=== PATIENT | female | born 1945 | race Caucasian/White ===

== ENCOUNTER → 2018-06-19 10:45 | Outpatient (CLI) | payer MEDICARE, OTHER, SELFPAY ==
[2017-02-10 00:41] VITALS: BMI 45.0
--- NOTE | 2018-06-19 09:04 | COLBX_PTH ---
PATIENT: CHAYITO LIM LOC: [facility] U#:[id number] AGE/SX: 79/F ROOM: RE06/19/[address]: Dr. Prashant Gonzalez MD : [id number] BED: DIS: SPEC #: [id number] RECD: 06/19/18 10:42 STATUS: GUILLERMINA MORALES #: [id number] BHUMIKA: 06/19/18 09:[address]: Prashant Gonzalez DEPT: SURGICAL PATHOLOGY RECD BY: Bhanu Rodriguez ENTERED: 06/19/18 11:59 SP TYPE: COLON BX OT DR: Dr. Angelo Eldridge MD [facility] Tissues: A - Right colon B - Left colon Procedures: Surgery Specimen Level IV HEADER OPERATION: Colonoscopy with biopsies PRE-OP DIAGNOSIS: Chronic diarrhea TISSUE SUBMITTED: A - Right colon biopsies, rule out ulcerative colitis, B - Left colon biopsies, rule out ulcerative colitis / microscopic colitis MICROSCOPIC DIAGNOSIS A. Right colon, biopsy: Diffuse chronic active colitis with moderate activity. See microscopic description and comment. B. Left colon, biopsy: Fragments of colonic mucosa with minimal glandular architectural distortion. Negative for active colitis. AM:gracie 06/20/18 COMMENT The findings are consistent with inflammatory bowel disease. Correlation with clinical, endoscopic findings and appropriate follow up are necessary. MICROSCOPIC DESCRIPTION Slides are reviewed. A. The specimen shows fragments of colonic mucosa with moderate acute and chronic inflammatory cell infiltrates in the lamina propria, cryptitis, crypt abscesses, lymphoid aggregates, minimal glandular distortion and focal areas suggestive of granuloma formation. No evidence of dysplasia. GROSS DESCRIPTION A - Received in fixative is one container labeled with the patient's name and designated right colon biopsy. The specimen consists of multiple irregular fragments of light marrufo soft tissue that in aggregate measure 1 x 0.7 x 0.1 cm. The specimen is totally submitted in one cassette. B - Received in fixative is one container labeled with the patient's name and designated left colon biopsy. The specimen consists of multiple irregular fragments of light marrufo soft tissue that in aggregate measure 2 x 0.5 x 0.1 cm. The specimen is totally submitted in one cassette. / SUE:gracie 06/19/18 TC:2 CPT: 61438 x2
== END ==
PROVIDERS: Family Provider Internal Medicine; PCP Internal Medicine; Referring Provider Internal Medicine Gastroenterology; Visit Provider Internal Medicine Gastroenterology
DX: R19.7 Diarrhea, unspecified (principal)
CPT/HCPCS: 87493; 88305

== ENCOUNTER → 2019-03-17 14:36 | Outpatient (CLI) | payer MEDICARE, OTHER, SELFPAY ==
[2017-02-10 00:41] VITALS: BMI 45.0
[2019-03-17 18:07] LABS: Hematocrit 37.5 % (37-47); Hemoglobin 11.5 g/dL (12.0-15.0); Mean Corp Hgb Conc 30.7 g/dL (32-36); Mean Corpuscular Hgb 29.3 pg (27.0-32.0); Mean Corpuscular Volume 95.4 fL (81-99); Mean Platelet Vol. 11.3 fl (6.2-12.0); Platelet Count 204 K/mm3 (150-450); RBC Distribution Width CV 14.9 % (11.6-14.6); RBC Distribution Width SD 51.1 fl (35.1-43.9); Red Blood Count 3.93 M/mm3 (4.2-5.4); White Blood Count 8.4 K/mm3 (4.4-11.0)
[2019-03-17 18:19] LABS: Erythrocyte Sedimentation Rate 59 mm/hr (0-30)
[2019-03-17 18:20] LABS: CRP 8.83 mg/L (0.0-3.0); Iron 66 ug/dL (50-170)
== END ==
PROVIDERS: Family Provider Internal Medicine; PCP Internal Medicine; Referring Provider Internal Medicine Gastroenterology; Visit Provider Internal Medicine Gastroenterology
DX: K51.90 Ulcerative colitis, unspecified, without complications (principal); D64.9 Anemia, unspecified
CPT/HCPCS: 36415; 83540; 85027; 85652; 86140

== ENCOUNTER 2019-10-22 12:00 | Outpatient (RCR) | payer MEDICARE, OTHER, SELFPAY ==
[2019-10-15 08:12] VITALS: BP 140/52; PULSE 60; RESP 16; TEMP 36.2; BMI 44.6
--- NOTE | 2019-10-15 16:22 | PCM.WC.HP ---
(1) Decubitus ulcer of left buttock Status: Chronic Current Visit: Yes Qualifiers: Pressure injury stage: stage 2 Qualified Code(s): L89.322 - Pressure ulcer of left buttock, stage 2 Code(s): L89.329 - Pressure ulcer of left buttock, unspecified stage (2) Decubitus ulcer of right buttock Status: Chronic Current Visit: Yes Qualifiers: Pressure injury stage: stage 2 Qualified Code(s): L89.312 - Pressure ulcer of right buttock, stage 2 Code(s): L89.319 - Pressure ulcer of right buttock, unspecified stage (3) Ulcer of left lower extremity with fat layer exposed Status: Acute Current Visit: Yes Code(s): L97.922 - Non-pressure chronic ulcer of unspecified part of left lower leg with fat layer exposed (4) Ulcer of right lower extremity with fat layer exposed Status: Acute Current Visit: Yes Code(s): L97.912 - Non-pressure chronic ulcer of unspecified part of right lower leg with fat layer exposed (5) Chronic Venous Stasis Status: Chronic Current Visit: Yes (6) Diabetes mellitus, type II Status: Chronic Current Visit: Yes Code(s): E11.9 - Type 2 diabetes mellitus without complications (7) Morbid obesity Status: Chronic Current Visit: Yes Code(s): E66.01 - Morbid (severe) obesity due to excess calories (8) Type 2 diabetes mellitus with other circulatory complications Status: Chronic Current Visit: Yes Code(s): E11.59 - Type 2 diabetes mellitus with other circulatory complications (9) Venous insufficiency (chronic) (peripheral) Status: Chronic Current Visit: Yes Code(s): I87.2 - Venous insufficiency (chronic) (peripheral) History of Present Illness Date of Service: 10/15/19 Chief Complaint: Bilateral lower extremity and Decubitus ( Buttock ) Ulcers. History of Wound: Ms. Ortiz is a 74 yo who presents to the Wound center due to nonhealing bilateral decubitus ulcers and new onset bilateral lower extremity ulcers. Bilateral decubitus ulcers have been present since . She reports increased tenderness in her buttock areas. She has been applying Aquaphor and Vaseline to the area. She also states that she was recently started on antibiotics by her primary care physician. She has a harper's catheter which is changed every 3 weeks. Bilateral lower extremity ulcerations noted 2 weeks ago. History of chronic venous insufficiency/stasis dermatitis. No trauma. She feels well. Denies chills, fever, nausea or vomiting. 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) Edema of both legs (Chronic) Diabetes mellitus, type II (Chronic) Hypertension (Chronic) Hyperlipidemia (Chronic) Morbid obesity (Chronic) Chronic Venous Stasis (Chronic) PVD (peripheral vascular disease) (Chronic) Overflow stress urinary incontinence in female (Chronic) COPD (chronic obstructive pulmonary disease) (Chronic) Chronic respiratory failure (Chronic) Cellulitis (Chronic) Chronic acquired lymphedema (Chronic) Surgical History: cataract, cholecystectomy, total knee arthroplasty, - - L carpal tunnel surgery, IVC Filter Allergies/Adverse Reactions: Allergies omeprazole magnesium [From Prilosec] Allergy (Verified 10/15/19 08:38) Rash rofecoxib [From Vioxx] Allergy (Verified 10/15/19 08:38) Swelling sulfamethoxazole [From Bactrim] Allergy (Verified 10/15/19 08:38) Other BURNING AROUND MOUTH trimethoprim [From Bactrim] Allergy (Verified 10/15/19 08:38) Other BURNING AROUND MOUTH aspirin Adverse Reaction (Verified 10/15/19 08:38) Other omeprazole [From Prilosec] Adverse Reaction (Verified 10/15/19 08:38) Nausea omonopril Allergy (Uncoded 11/04/14 19:08) Other COUGH SEASONAL ALLERGIES Allergy (Uncoded 10/15/19 08:39) PT UNSURE OF REACTION Home Medications: Ambulatory Orders Medication Instructions Recorded Metoprolol Tartrate [Lopressor 25 mg PO DAILY 11/04/14 (beta frank)] Fluoxetine [Prozac] 20 mg PO BID 05/12/16 Furosemide [Lasix] 80 mg PO BID 05/12/16 Losartan Potassium [Cozaar] 25 mg PO DAILY 05/12/16 Cyanocobalamin (Vitamin B-12) 1,000 mcg PO DAILY 12/25/16 [B-12] Ferrous Sulfate, Dried [Iron] 30 mg PO QWEEK 10/15/19 Loperamide [Imodium] 2 mg PO Q12H PRN PRN 10/15/19 Magnesium Oxide 750 mg PO DAILY 10/15/19 Mesalamine [Lialda] 2.5 tab PO BID 10/15/19 Multivitamin [Multiple Vitamins] 1 ea PO DAILY 10/15/19 Ondansetron [Ondansetron Odt] 4 mg PO 4X/DAY PRN 10/15/19 Warfarin [Coumadin ([facility]KC)] 1 mg PO DAILY 10/15/19 - Family History Maternal No pertinent history Paternal No pertinent history Smoking Status: Former smoker Review of Systems Constitutional: Denies: Anorexia, Chills, Fever Eyes: Denies: Blurred vision, Pain, Redness HEENT: Denies: Difficulty Swallowing Cardiovascular: Denies: Chest Pain, Claudication, Chest Pressure Respiratory: Denies: Cough, Hemoptysis Gastrointestinal: Denies: Abdominal Pain, Hematemesis Skin: Denies: Jaundice - Physical Exam Vital Signs Temp Pulse Resp BP 97.2 F L 60 16 140/52 H 10/15/19 08:12 10/15/19 08:12 10/15/19 08:12 10/15/19 08:12 General: Alert, Oriented x3, Cooperative, No apparent distress HEENT: Atraumatic, Normocephalic Oral: Moist Mucosa Neck: Supple Lungs: Normal air movement Cardiovascular: Regular rate, Normal S1, Normal S2 Abdomen: Soft, Non Tender, Obese Extremities: No cyanosis Skin: Ulcer/ Wound Wound Measurements and Assessment WC - Nurse 1 - General Ulcer Measurement Start: 10/15/19 08:10 Freq: Status: Active Protocol: Activity Type Activity Date Activity User E-Sign Co-Sign Detail Recorded Client Recorded Date Recorded By Document 10/15/19 08:12 [facility] [id number] 10/15/19 08:35 [facility] 10/15/19 08:12 Wound Center Nurse 1 [Ulcer Assessment] #7- L BUTTOCK -Combined with other wound No -Current Size (cm) - Length 0.8 -Current Size (cm) - Width 0.4 -Current Size (cm) - Depth 0.1 -Total Square Cm 0.32 -Date of Last Picture (Recall this 10/15/19 field) -Photo Taken Yes -Epithelialization None Present -Tunneling No -Undermining/Tunneling No -Circular Undermining No -Exudate Amt None Present -Wound Margin Flat & Intact -Granulation Amt Large (67-100%) -Granulation Quality Morris -Slough/Fibrin Yes -Necrosis Amt Small (1-33%) -Necrotic Tissue Type Adherent Slough -Texture (Loli-wound Skin Appearance) Assessed, Excoriation, Scarring -Moisture (Loli-wound Skin Appearance Assessed,Dry/ ) Scaly -Color (Loli-wound Skin Appearance) Assessed, Erythema -Temperature (Loli-wound Skin No Abnormality Appearance) (Pt Warm) -Tenderness on Palpation (Loli-wound No Skin Appearance) -Ulcer Cleansing Rinsed/ Irrigated with Saline -Foul Odor after Cleansing No -Anesthetic Used 4% Lidocaine Solution #6- R BUTTOCK -Combined with other wound No -Current Size (cm) - Length 1.1 -Current Size (cm) - Width 0.4 -Current Size (cm) - Depth 0.1 -Total Square Cm 0.44 -Date of Last Picture (Recall this 10/15/19 field) -Photo Taken Yes -Epithelialization None Present -Tunneling No -Undermining/Tunneling No -Circular Undermining No -Exudate Amt None Present -Wound Margin Flat & Intact -Granulation Amt Large (67-100%) -Granulation Quality Morris -Slough/Fibrin Yes -Necrosis Amt Small (1-33%) -Necrotic Tissue Type Adherent Slough -Texture (Loli-wound Skin Appearance) Assessed, Excoriation, Scarring -Moisture (Loli-wound Skin Appearance Assessed,Dry/ ) Scaly -Color (Loli-wound Skin Appearance) Assessed, Erythema -Temperature (Loli-wound Skin No Abnormality Appearance) (Pt Warm) -Tenderness on Palpation (Loli-wound No Skin Appearance) -Ulcer Cleansing Rinsed/ Irrigated with Saline -Foul Odor after Cleansing No -Anesthetic Used 4% Lidocaine Solution #5- R LAT MUSTAFA -Combined with other wound No -Current Size (cm) - Length 0.7 -Current Size (cm) - Width 1 -Current Size (cm) - Depth 0.1 -Total Square Cm 0.7 -Date of Last Picture (Recall this 10/15/19 field) -Photo Taken Yes -Epithelialization None Present -Tunneling No -Undermining/Tunneling No -Circular Undermining No -Exudate Amt Small -Exudate Type Serous -Wound Margin Flat & Intact -Granulation Amt Large (67-100%) -Granulation Quality Morris -Slough/Fibrin Yes -Necrosis Amt Small (1-33%) -Necrotic Tissue Type Adherent Slough -Texture (Loli-wound Skin Appearance) Assessed, Scarring -Moisture (Loli-wound Skin Appearance Assessed,Dry/ ) Scaly -Color (Loli-wound Skin Appearance) Assessed, Erythema -Temperature (Loli-wound Skin No Abnormality Appearance) (Pt Warm) -Tenderness on Palpation (Loli-wound No Skin Appearance) -Ulcer Cleansing Rinsed/ Irrigated with Saline -Foul Odor after Cleansing No -Anesthetic Used 4% Lidocaine Solution #4 L MUSTAFA CLUSTER -Combined with other wound No -Current Size (cm) - Length 3.6 -Current Size (cm) - Width 0.7 -Current Size (cm) - Depth 0.1 -Total Square Cm 2.52 -Date of Last Picture (Recall this 10/15/19 field) -Photo Taken Yes -Epithelialization None Present -Tunneling No -Undermining/Tunneling No -Circular Undermining No -Exudate Amt Small -Exudate Type Serous -Wound Margin Flat & Intact -Granulation Amt Large (67-100%) -Granulation Quality Morris -Slough/Fibrin Yes -Necrosis Amt Small (1-33%) -Necrotic Tissue Type Adherent Slough -Texture (Loli-wound Skin Appearance) Assessed, Scarring -Moisture (Loli-wound Skin Appearance Assessed,Dry/ ) Scaly -Color (Loli-wound Skin Appearance) Assessed, Erythema -Temperature (Loli-wound Skin No Abnormality Appearance) (Pt Warm) -Tenderness on Palpation (Loli-wound No Skin Appearance) -Ulcer Cleansing Rinsed/ Irrigated with Saline -Foul Odor after Cleansing No -Anesthetic Used 4% Lidocaine Solution [Edema Assessment] -Lower Limb Edema Present Yes -Right Calf (cm) 41.7 -Right Ankle (cm) 23.5 -Left Calf (cm) 41.6 -Left Ankle (cm) 22.5 WC - Nurse 2 - General Ulcer CM Notes Start: 10/15/19 08:10 Freq: Status: Active Protocol: Activity Type Activity Date Activity User E-Sign Co-Sign Detail Recorded Client Recorded Date Recorded By Document 10/15/19 08:59 MW [id number] 10/15/19 09:12 MW 10/15/19 08:59 Wound Center Nurse 2 [Procedure/Treatment] #7- L BUTTOCK -Time 08:59 -Correct Patient Yes -Correct Side, Site, Position Yes -Correct Procedure Yes -Procedure Performed Yes -Type of Procedure Debridement -Clinical Debridement Subcutaneous -Post Debridement Size (cm) - Length 1.2 -Post Debridement Size (cm) - Width 0.6 -Post Debridement Size (cm) - Depth 0.1 -Total Square Cm 0.72 -Wound/Ulcer Outcome Not Healed -Ulcer Cleansing Rinsed/ Irrigated with Saline -Foul Odor after Cleansing No -Bioengineered Tissue No -Bleeding Controlled with Pressure -Offloading No -Treatment Response Procedure Tolerated Well #6- R BUTTOCK -Time 09:00 -Correct Patient Yes -Correct Side, Site, Position Yes -Correct Procedure Yes -Procedure Performed Yes -Type of Procedure Debridement -Clinical Debridement Subcutaneous -Post Debridement Size (cm) - Length 1.5 -Post Debridement Size (cm) - Width 0.7 -Post Debridement Size (cm) - Depth 0.1 -Total Square Cm 1.05 -Wound/Ulcer Outcome Not Healed -Ulcer Cleansing Rinsed/ Irrigated with Saline -Foul Odor after Cleansing No -Bioengineered Tissue No -Bleeding Controlled with Pressure -Offloading No -Treatment Response Procedure Tolerated Well #5- R LAT MUSTAFA -Time 09:01 -Correct Patient Yes -Correct Side, Site, Position Yes -Correct Procedure Yes -Procedure Performed Yes -Type of Procedure Debridement -Clinical Debridement Subcutaneous -Post Debridement Size (cm) - Length 2.5 -Post Debridement Size (cm) - Width 1.0 -Post Debridement Size (cm) - Depth 0.1 -Total Square Cm 2.50 -Wound/Ulcer Outcome Not Healed -Ulcer Cleansing Rinsed/ Irrigated with Saline -Foul Odor after Cleansing No -Bioengineered Tissue No -Bleeding Controlled with Pressure -Offloading No -Treatment Response Procedure Tolerated Well #4 L MUSTAFA CLUSTER -Time 09:01 -Correct Patient Yes -Correct Side, Site, Position Yes -Correct Procedure Yes -Procedure Performed Yes -Type of Procedure Debridement -Clinical Debridement Subcutaneous -Post Debridement Size (cm) - Length 1.3 -Post Debridement Size (cm) - Width 1.3 -Post Debridement Size (cm) - Depth 0.1 -Total Square Cm 1.69 -Wound/Ulcer Outcome Not Healed -Ulcer Cleansing Rinsed/ Irrigated with Saline -Foul Odor after Cleansing No -Bioengineered Tissue No -Bleeding Controlled with Pressure -Offloading No -Treatment Response Procedure Tolerated Well [See Physician Procedure note for Specifics] Pain Scale: 0-10 Numeric [Pain] -Is Patient Pain Free? Yes Musculoskeletal: No Muscle Wasting Neurological: Cranial nerves II-XII grossly intact Psych/Mental Status: Normal Affect Debridement Note Post-Debridement Measurements/Treatment WC - Nurse 2 - General Ulcer CM Notes Start: 10/15/19 08:10 Freq: Status: Active Protocol: Activity Type Activity Date Activity User E-Sign Co-Sign Detail Recorded Client Recorded Date Recorded By Document 10/15/19 08:59 MW [id number] 10/15/19 09:12 MW 10/15/19 08:59 Wound Center Nurse 2 #7- L BUTTOCK -Time 08:59 -Correct Patient Yes -Correct Side, Site, Position Yes -Correct Procedure Yes -Procedure Performed Yes -Type of Procedure Debridement -Clinical Debridement Subcutaneous -Post Debridement Size (cm) - Length 1.2 -Post Debridement Size (cm) - Width 0.6 -Post Debridement Size (cm) - Depth 0.1 -Total Square Cm 0.72 -Wound/Ulcer Outcome Not Healed -Ulcer Cleansing Rinsed/ Irrigated with Saline -Foul Odor after Cleansing No -Bioengineered Tissue No -Bleeding Controlled with Pressure -Offloading No -Treatment Response Procedure Tolerated Well #6- R BUTTOCK -Time 09:00 -Correct Patient Yes -Correct Side, Site, Position Yes -Correct Procedure Yes -Procedure Performed Yes -Type of Procedure Debridement -Clinical Debridement Subcutaneous -Post Debridement Size (cm) - Length 1.5 -Post Debridement Size (cm) - Width 0.7 -Post Debridement Size (cm) - Depth 0.1 -Total Square Cm 1.05 -Wound/Ulcer Outcome Not Healed -Ulcer Cleansing Rinsed/ Irrigated with Saline -Foul Odor after Cleansing No -Bioengineered Tissue No -Bleeding Controlled with Pressure -Offloading No -Treatment Response Procedure Tolerated Well #5- R LAT MUSTAFA -Time 09:01 -Correct Patient Yes -Correct Side, Site, Position Yes -Correct Procedure Yes -Procedure Performed Yes -Type of Procedure Debridement -Clinical Debridement Subcutaneous -Post Debridement Size (cm) - Length 2.5 -Post Debridement Size (cm) - Width 1.0 -Post Debridement Size (cm) - Depth 0.1 -Total Square Cm 2.50 -Wound/Ulcer Outcome Not Healed -Ulcer Cleansing Rinsed/ Irrigated with Saline -Foul Odor after Cleansing No -Bioengineered Tissue No -Bleeding Controlled with Pressure -Offloading No -Treatment Response Procedure Tolerated Well #4 L MUSTAFA CLUSTER -Time 09:01 -Correct Patient Yes -Correct Side, Site, Position Yes -Correct Procedure Yes -Procedure Performed Yes -Type of Procedure Debridement -Clinical Debridement Subcutaneous -Post Debridement Size (cm) - Length 1.3 -Post Debridement Size (cm) - Width 1.3 -Post Debridement Size (cm) - Depth 0.1 -Total Square Cm 1.69 -Wound/Ulcer Outcome Not Healed -Ulcer Cleansing Rinsed/ Irrigated with Saline -Foul Odor after Cleansing No -Bioengineered Tissue No -Bleeding Controlled with Pressure -Offloading No -Treatment Response Procedure Tolerated Well Pain Scale: 0-10 Numeric Is Patient Pain Free? Yes Wound debrided: Left Buttock Wound Grade/Stage: Stage II Type of Debridement: Excisional debridement Anesthesia Used: 4% Lidocaine Solution Depth: Down to and including healthy tissue, in the subcutaneous layer Percentage of wound debrided: 100 Instrument Used: 3mm curette Tissue Removed: Slough and devitalized tissue Severity: Fat Layer Exposed Amount of bleeding with debridement: Mild Bleeding Controlled with: Pressure Patient tolerated procedure well - Additional Wound Wound debrided: Right Buttock Wound Grade/Stage: Stage II Type of Debridement: Excisional debridement Anesthesia Used: 4% Lidocaine Solution Depth: Down to and including healthy tissue, in the subcutaneous layer Percentage of wound debrided: 100 Instrument Used: 3mm curette Tissue Removed: Slough and devitalized tissue Severity: Fat Layer Exposed Amount of bleeding with debridement: Mild Bleeding Controlled with: Pressure Patient tolerated procedure: Patient tolerated procedure well - Additional Wound Wound debrided: Left lower extremity Type of Debridement: Excisional debridement Anesthesia Used: 4% Lidocaine Solution Depth: Down to and including healthy tissue, in the subcutaneous layer Percentage of wound debrided: 100 Instrument Used: 3mm curette Tissue Removed: Slough and devitalized tissue Severity: Fat Layer Exposed Amount of bleeding with debridement: Mild Bleeding Controlled with: Pressure Patient tolerated procedure: Patient tolerated procedure well - Additional Wound Wound debrided: Right lower extremity Type of Debridement: Excisional debridement Anesthesia Used: 4% Lidocaine Solution Depth: Down to and including healthy tissue, in the subcutaneous layer Percentage of wound debrided: 100 Instrument Used: 3mm curette Tissue Removed: Slough and devitalized tissue Severity: Fat Layer Exposed Amount of bleeding with debridement: Mild Bleeding Controlled with: Pressure Patient tolerated procedure: Patient tolerated procedure well Assessment/Plan Active Problems Decubitus ulcer of left buttock (Chronic) Decubitus ulcer of right buttock (Chronic) Ulcer of left lower extremity with fat layer exposed (Acute) Ulcer of right lower extremity with fat layer exposed (Acute) Venous insufficiency (chronic) (peripheral) (Chronic) 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 Plan: Debridement done as documented above. Procedure was well-tolerated. Bilateral decubitus ulcer with significant erythema extending from buttocks to the vagina area and vaginal discharge noted. Discharge also noted around the catheter. She was strongly advised to follow-up with her primary care physician or urologist for culture. She might benefit from catheter tip culture to better isolate the organism. Currently on antibiotics prescribed by her PCP. Also possibly irritation due to the presence of the Harper's catheter. For now, Aquaphor healing ointment copiously applied to the perineum and buttock area 3-4 times daily. Aquacel to the bilateral lower extremity ulcers. 3M wraps for edema management. Follow-up on Saturday for nurse visit and in 1 week with me. Offloading, Leg elevation and exercise as tolerated. Increase protein intake also discussed. Her questions were answered and she was advised to call with any questions or concerns. This note was generated with [employer] dictation software. It may contain incorrect words, spelling, and punctuation that were not noted in checking the note before signing. Multi Select Codes - Visit Charges Office Visit/Consults: 98045 OV L3 New - Integumentary Integumentary CPT Codes: 77872 Mariam subq tissue 20 sq cm/<
[2019-10-19 13:18] VITALS: BP 151/67; PULSE 66; RESP 18; TEMP 36.1; BMI 44.6
[2019-10-22 12:28] VITALS: BP 126/45; PULSE 55; RESP 20; TEMP 36.9; BMI 44.6
--- NOTE | 2019-10-22 15:39 | PN.PCM_ITS ---
(1) Decubitus ulcer of left buttock Status: Chronic Current Visit: Yes Qualifiers: Pressure injury stage: stage 2 Qualified Code(s): L89.322 - Pressure ulcer of left buttock, stage 2 Code(s): L89.329 - Pressure ulcer of left buttock, unspecified stage (2) Decubitus ulcer of right buttock Status: Chronic Current Visit: Yes Qualifiers: Pressure injury stage: stage 2 Qualified Code(s): L89.312 - Pressure ulcer of right buttock, stage 2 Code(s): L89.319 - Pressure ulcer of right buttock, unspecified stage (3) Ulcer of left lower extremity with fat layer exposed Status: Acute Current Visit: Yes Code(s): L97.922 - Non-pressure chronic ulcer of unspecified part of left lower leg with fat layer exposed (4) Ulcer of right lower extremity with fat layer exposed Status: Acute Current Visit: Yes Code(s): L97.912 - Non-pressure chronic ulcer of unspecified part of right lower leg with fat layer exposed (5) Chronic Venous Stasis Status: Chronic Current Visit: Yes (6) Diabetes mellitus, type II Status: Chronic Current Visit: Yes Code(s): E11.9 - Type 2 diabetes mellitus without complications (7) Morbid obesity Status: Chronic Current Visit: Yes Code(s): E66.01 - Morbid (severe) obesity due to excess calories (8) Type 2 diabetes mellitus with other circulatory complications Status: Chronic Current Visit: Yes Code(s): E11.59 - Type 2 diabetes mellitus with other circulatory complications (9) Venous insufficiency (chronic) (peripheral) Status: Chronic Current Visit: Yes Code(s): I87.2 - Venous insufficiency (chronic) (peripheral) Type of Wound Date of Service: 10/22/19 Chief Complaint: Bilateral lower extremity and Decubitus ( Buttock ) Ulcers. History of Wound: Ms. Ortiz is a 74 yo who presents to the Wound center due to nonhealing bilateral decubitus ulcers and new onset bilateral lower extremity ulcers. Bilateral decubitus ulcers have been present since . She reports increased tenderness in her buttock areas. She has been applying Aquaphor and Vaseline to the area. She also states that she was recently started on antibiotics by her primary care physician. She has a harper's catheter which is changed every 3 weeks. Bilateral lower extremity ulcerations noted 2 weeks ago. History of chronic venous insufficiency/stasis dermatitis. No trauma. She feels well. Denies chills, fever, nausea or vomiting. Progress of Wound: Significant improvement. Minimal area in right lateral lower extremity. Perineal area also improving. - Physical Exam Vital Signs Temp Pulse Resp BP 98.5 F 55 L 20 H 126/45 H 10/22/19 12:28 10/22/19 12:28 10/22/19 12:28 10/22/19 12:28 General: Alert, Oriented x3, Cooperative, No apparent distress HEENT: Atraumatic, Normocephalic Oral: Moist Mucosa Neck: Supple Lungs: Normal air movement Abdomen: Non Tender, Obese Skin: Ulcer/ Wound Wound Measurements and Assessment WC - Nurse 1 - General Ulcer Measurement Start: 10/15/19 08:10 Freq: Status: Active Protocol: Activity Type Activity Date Activity User E-Sign Co-Sign Detail Recorded Client Recorded Date Recorded By Document 10/22/19 12:28 DL [id number] 10/22/19 12:51 DL 10/22/19 12:28 Wound Center Nurse 1 [Ulcer Assessment] #7- L BUTTOCK -Current Size (cm) - Length 0.1 -Current Size (cm) - Width 0.1 -Current Size (cm) - Depth 0.1 -Total Square Cm 0.01 -Photo Taken No -Exudate Amt None Present -Wound Margin Indistinct, Non -Visible -Granulation Amt Small (1-33%) -Granulation Quality [place] -Necrosis Amt None Present (0 %) -Structure Exposed N/A -Texture (Loli-wound Skin Appearance) Scarring -Moisture (Loli-wound Skin Appearance Dry/Scaly ) -Color (Loli-wound Skin Appearance) Rubor -Temperature (Loli-wound Skin No Abnormality Appearance) (Pt Warm) -Tenderness on Palpation (Loli-wound No Skin Appearance) -Ulcer Cleansing Wound Cleanser -Foul Odor after Cleansing No -Anesthetic Used 4% Lidocaine Solution #6- R BUTTOCK -Current Size (cm) - Length 0.1 -Current Size (cm) - Width 0.1 -Current Size (cm) - Depth 0.1 -Total Square Cm 0.01 -Photo Taken No -Exudate Amt None Present -Wound Margin Indistinct, Non -Visible -Granulation Amt Small (1-33%) -Granulation Quality [place] -Necrosis Amt None Present (0 %) -Structure Exposed N/A -Texture (Loli-wound Skin Appearance) Scarring -Moisture (Loli-wound Skin Appearance Dry/Scaly ) -Color (Loli-wound Skin Appearance) Rubor -Temperature (Loli-wound Skin No Abnormality Appearance) (Pt Warm) -Tenderness on Palpation (Loli-wound No Skin Appearance) -Ulcer Cleansing Wound Cleanser -Foul Odor after Cleansing No -Anesthetic Used 4% Lidocaine Solution #5- R LAT MUSTAFA -Current Size (cm) - Length 0 -Current Size (cm) - Width 0 -Current Size (cm) - Depth 0 -Total Square Cm 0 -Photo Taken Yes -Exudate Amt None Present -Wound Margin Flat & Intact -Granulation Amt Small (1-33%) -Granulation Quality [place] -Necrosis Amt None Present (0 %) -Structure Exposed N/A -Texture (Loli-wound Skin Appearance) Scarring -Moisture (Loli-wound Skin Appearance Dry/Scaly ) -Color (Loli-wound Skin Appearance) Hemosiderin Staining -Temperature (Loli-wound Skin No Abnormality Appearance) (Pt Warm) -Tenderness on Palpation (Loli-wound No Skin Appearance) -Ulcer Cleansing Wound Cleanser -Foul Odor after Cleansing No #4 L MUSTAFA CLUSTER -Current Size (cm) - Length 0 -Current Size (cm) - Width 0 -Current Size (cm) - Depth 0 -Total Square Cm 0 -Photo Taken Yes -Exudate Amt None Present -Wound Margin Flat & Intact -Granulation Amt Small (1-33%) -Granulation Quality [place] -Necrosis Amt None Present (0 %) -Structure Exposed N/A -Texture (Loli-wound Skin Appearance) Scarring -Moisture (Loli-wound Skin Appearance Dry/Scaly ) -Color (Loli-wound Skin Appearance) Hemosiderin Staining -Temperature (Loli-wound Skin No Abnormality Appearance) (Pt Warm) -Tenderness on Palpation (Loli-wound No Skin Appearance) -Ulcer Cleansing Wound Cleanser -Foul Odor after Cleansing No [Edema Assessment] -Right Calf (cm) 35.0 -Right Ankle (cm) 23.0 -Left Calf (cm) 35.0 -Left Ankle (cm) 21.6 WC - Nurse 2 - General Ulcer CM Notes Start: 10/15/19 08:10 Freq: Status: Active Protocol: Activity Type Activity Date Activity User E-Sign Co-Sign Detail Recorded Client Recorded Date Recorded By Document 10/22/19 13:01 MW [id number] 10/22/19 13:05 MW 10/22/19 13:01 Wound Center Nurse 2 [Procedure/Treatment] #7- L BUTTOCK -Time 13:01 -Correct Patient Yes -Correct Side, Site, Position Yes -Correct Procedure Yes -Procedure Performed No -Wound/Ulcer Outcome Not Healed -Ulcer Cleansing Rinsed/ Irrigated with Saline -Foul Odor after Cleansing No -Bioengineered Tissue No -Bleeding Controlled with NA -Offloading No -Treatment Response Procedure Tolerated Well #6- R BUTTOCK -Time 13:01 -Correct Patient Yes -Correct Side, Site, Position Yes -Correct Procedure Yes -Procedure Performed No -Wound/Ulcer Outcome Not Healed -Ulcer Cleansing Not Cleansed -Foul Odor after Cleansing No -Bioengineered Tissue No -Bleeding Controlled with NA -Offloading No -Treatment Response Procedure Tolerated Well #5- R LAT MUSTAFA -Time 13:04 -Correct Patient Yes -Correct Side, Site, Position Yes -Correct Procedure Yes -Procedure Performed No -Post Debridement Size (cm) - Length 0.1 -Post Debridement Size (cm) - Width 0.1 -Post Debridement Size (cm) - Depth 0.1 -Total Square Cm 0.01 -Wound/Ulcer Outcome Not Healed -Ulcer Cleansing Rinsed/ Irrigated with Saline -Foul Odor after Cleansing No -Bioengineered Tissue No -Bleeding Controlled with NA -Offloading No -Treatment Response Procedure Tolerated Well #4 L MUSTAFA CLUSTER -Time 13:04 -Correct Patient Yes -Correct Side, Site, Position Yes -Correct Procedure Yes -Procedure Performed No -Wound/Ulcer Outcome Healed- Epithelialized [See Physician Procedure note for Specifics] Pain Scale: 0-10 Numeric [Pain] -Is Patient Pain Free? Yes Musculoskeletal: No Muscle Wasting Neurological: Cranial nerves II-XII grossly intact Psych/Mental Status: Normal Affect Debridement Note Post-Debridement Measurements/Treatment WC - Nurse 2 - General Ulcer CM Notes Start: 10/15/19 08:10 Freq: Status: Active Protocol: Activity Type Activity Date Activity User E-Sign Co-Sign Detail Recorded Client Recorded Date Recorded By Document 10/15/19 08:59 MW [id number] 10/15/19 09:12 MW Document 10/22/19 13:01 MW [id number] 10/22/19 13:05 MW 10/15/19 10/22/19 08:59 13:01 Wound Center Nurse 2 #7- L BUTTOCK -Time 08:59 13:01 -Correct Patient Yes Yes -Correct Side, Site, Position Yes Yes -Correct Procedure Yes Yes -Procedure Performed Yes No -Type of Procedure Debridement -Clinical Debridement Subcutaneous -Post Debridement Size (cm) - Length 1.2 -Post Debridement Size (cm) - Width 0.6 -Post Debridement Size (cm) - Depth 0.1 -Total Square Cm 0.72 -Wound/Ulcer Outcome Not Healed Not Healed -Ulcer Cleansing Rinsed/ Rinsed/ Irrigated with Irrigated with Saline Saline -Foul Odor after Cleansing No No -Bioengineered Tissue No No -Bleeding Controlled with Pressure NA -Offloading No No -Treatment Response Procedure Procedure Tolerated Well Tolerated Well #6- R BUTTOCK -Time 09:00 13:01 -Correct Patient Yes Yes -Correct Side, Site, Position Yes Yes -Correct Procedure Yes Yes -Procedure Performed Yes No -Type of Procedure Debridement -Clinical Debridement Subcutaneous -Post Debridement Size (cm) - Length 1.5 -Post Debridement Size (cm) - Width 0.7 -Post Debridement Size (cm) - Depth 0.1 -Total Square Cm 1.05 -Wound/Ulcer Outcome Not Healed Not Healed -Ulcer Cleansing Rinsed/ Not Cleansed Irrigated with Saline -Foul Odor after Cleansing No No -Bioengineered Tissue No No -Bleeding Controlled with Pressure NA -Offloading No No -Treatment Response Procedure Procedure Tolerated Well Tolerated Well #5- R LAT MUSTAFA -Time 09:01 13:04 -Correct Patient Yes Yes -Correct Side, Site, Position Yes Yes -Correct Procedure Yes Yes -Procedure Performed Yes No -Type of Procedure Debridement -Clinical Debridement Subcutaneous -Post Debridement Size (cm) - Length 2.5 0.1 -Post Debridement Size (cm) - Width 1.0 0.1 -Post Debridement Size (cm) - Depth 0.1 0.1 -Total Square Cm 2.50 0.01 -Wound/Ulcer Outcome Not Healed Not Healed -Ulcer Cleansing Rinsed/ Rinsed/ Irrigated with Irrigated with Saline Saline -Foul Odor after Cleansing No No -Bioengineered Tissue No No -Bleeding Controlled with Pressure NA -Offloading No No -Treatment Response Procedure Procedure Tolerated Well Tolerated Well #4 L MUSTAFA CLUSTER -Time 09:01 13:04 -Correct Patient Yes Yes -Correct Side, Site, Position Yes Yes -Correct Procedure Yes Yes -Procedure Performed Yes No -Type of Procedure Debridement -Clinical Debridement Subcutaneous -Post Debridement Size (cm) - Length 1.3 -Post Debridement Size (cm) - Width 1.3 -Post Debridement Size (cm) - Depth 0.1 -Total Square Cm 1.69 -Wound/Ulcer Outcome Not Healed Healed- Epithelialized -Ulcer Cleansing Rinsed/ Irrigated with Saline -Foul Odor after Cleansing No -Bioengineered Tissue No -Bleeding Controlled with Pressure -Offloading No -Treatment Response Procedure Tolerated Well Pain Scale: 0-10 Numeric Is Patient Pain Free? Yes Yes No debridement was completed today Assessment/Plan Active Problems Decubitus ulcer of left buttock (Chronic) Decubitus ulcer of right buttock (Chronic) Ulcer of left lower extremity with fat layer exposed (Acute) Ulcer of right lower extremity with fat layer exposed (Acute) Venous insufficiency (chronic) (peripheral) (Chronic) 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 Plan: Improving. Minimal area on right lower extremity and perineal area left. No debridement completed, superficial. Continue Aquasol with Adaptic over top to right lower extremity. Double layer Tubigrip's for edema management bilaterally. Continue Aquaphor to perineal area. Copious amounts, 3-4 times daily. Continue offloading. Currently on fluconazole started by urology. Offloading, Leg elevation and exercise as tolerated. Increase protein intake also discussed. Her questions were answered and she was advised to call with any questions or concerns. Follow-up in a week. This note was generated with [employer] dictation software. It may contain incorrect words, spelling, and punctuation that were not noted in checking the note before signing. Office Visits / Consults: [id number] OV L3 Est
== END 2019-11-10 23:59 ==
LOC: WC 12:00
PROVIDERS: PCP Internal Medicine; Visit Provider Internal Medicine
DX: L89.312 Pressure ulcer of right buttock, stage 2 (principal); L89.322 Pressure ulcer of left buttock, stage 2; L97.912 Non-pressure chronic ulcer of unspecified part of right lower leg with fat layer exposed; L97.922 Non-pressure chronic ulcer of unspecified part of left lower leg with fat layer exposed; E11.59 Type 2 diabetes mellitus with other circulatory complications; E11.51 Type 2 diabetes mellitus with diabetic peripheral angiopathy without gangrene; I73.9 Peripheral vascular disease, unspecified; I87.2 Venous insufficiency (chronic) (peripheral); I89.0 Lymphedema, not elsewhere classified; I10 Essential (primary) hypertension; E78.5 Hyperlipidemia, unspecified; J96.10 Chronic respiratory failure, unspecified whether with hypoxia or hypercapnia; J44.9 Chronic obstructive pulmonary disease, unspecified; E66.01 Morbid (severe) obesity due to excess calories; Z79.01 Long term (current) use of anticoagulants; Z79.899 Other long term (current) drug therapy; Z87.891 Personal history of nicotine dependence
CPT/HCPCS: 11042; 29581; 99213; 99214; G0463

== ENCOUNTER 2019-10-31 09:26 | Inpatient (IN) | payer MEDICARE, OTHER, SELFPAY ==
[2019-10-31] VITALS (12 sets, daily range): BP systolic 118–136; BP diastolic 42–62; PULSE 65–77; RESP 15–20; TEMP 36.4–37.3; O2SAT 92–99; BMI 41.3; BMI 41.0
[2019-10-31 10:20] LABS: Absolute Lymphocyte Count 1.25 X10^3/uL (0.83-4.51); Absolute Neutrophil Count 7.2 X10^3/uL (2.0-7.7); Basophil# 0.04 X10^3/uL; Basophil% 0.4 % (0-1); Eosinophil# 0.43 X10^3/uL; Eosinophils% 4.4 % (0-5); Hematocrit 33.2 % (37-47); Hemoglobin 10.2 g/dL (12.0-15.0); Lymphocyte # 1.25 X10^3/ul (4.0); Lymphocyte % 12.8 % (19-41); Mean Corp Hgb Conc 30.7 g/dL (32-36); Mean Corpuscular Hgb 29.8 pg (27.0-32.0); Mean Corpuscular Volume 97.1 fL (81-99); Mean Platelet Vol. 10.6 fl (6.2-12.0); Monocyte# 0.77 X10^3/uL; Monocyte% 7.9 % (0-10); NRBC Flagged by Analyzer 0 % (0-5); Neutrophil % 74.1 % (47-70); Platelet Count 261 K/mm3 (150-450); RBC Distribution Width CV 14.7 % (11.6-14.6); RBC Distribution Width SD 52.2 fl (35.1-43.9); Red Blood Count 3.42 M/mm3 (4.2-5.4); White Blood Count 9.7 K/mm3 (4.4-11.0)
--- NOTE | 2019-10-31 10:27 | ED.VIS.GEN ---
History of Present Illness Chief Complaint: Wound Informant: Patient Narrative: Patient states that for the past at least 2 months she has been dealing with various sores on her bottom and perineal area. She states that at the beginning this month she went to the wound care where she was seen a couple times. She states they have been treating it and she is done several rounds of antibiotics. She states that she is basically confined to the wheelchair because when she goes to lay down in the bed to offload her buttocks she is unable to get back up. She lives with her . She states that they have talked about needing to go to prison facility but she would require a 3-day hospital stay and she has not been able to get that. She states that every day she hopes that she gets better but unfortunately she has not. She states that she feels weaker every day but believes that there is something else causing her weakness then her wounds. Patient denies any fevers. She has a chronic indwelling Soriano catheter. Patient has peripheral vascular disease and she has multiple wounds on lower extremities perineum and buttock that were addressed at the wound care clinic. Most recently approximately week and a half ago the patient had very good documentation of these wounds. Those wound care center notes were available to me I reviewed them. Past Medical History - Allergies and Home Meds Allergies/Adverse Reactions: Allergies omeprazole magnesium [From Prilosec] Allergy (Verified 10/31/19 09:27) Rash rofecoxib [From Vioxx] Allergy (Verified 10/31/19 09:27) Swelling sulfamethoxazole [From Bactrim] Allergy (Verified 10/31/19 09:27) Other BURNING AROUND MOUTH trimethoprim [From Bactrim] Allergy (Verified 10/31/19 09:27) Other BURNING AROUND MOUTH aspirin Adverse Reaction (Verified 10/31/19 09:27) Other omeprazole [From Prilosec] Adverse Reaction (Verified 10/31/19 09:27) Nausea omonopril Allergy (Uncoded 10/31/19 09:27) Other COUGH SEASONAL ALLERGIES Allergy (Uncoded 10/31/19 09:27) PT UNSURE OF REACTION Primary Care Physician: Nasreen Jarrett MD [Primary Care Provider] - Surgical History: cataract, cholecystectomy, total knee arthroplasty, - - L carpal tunnel surgery, IVC Filter Smoking Status: Former smoker - Family History Maternal Family History: Reports: No pertinent history Paternal Family History: Reports: No pertinent history Review of Systems General: Denies: Chills, Fever, Sweats Eyes: Denies: Visual changes - bilaterally, Diplopia ENT: Denies: Rhinorrhea, Sore throat Cardiovascular: Denies: Chest pain, Palpitations Respiratory: Denies: Dyspnea, Cough, Dyspnea on exertion Gastrointestinal: Denies: Abdominal pain, Nausea, Vomiting, Diarrhea, Melena, Hematochezia Genitourinary: Denies: Dysuria, Hematuria, Frequency Musculoskeletal: Denies: Back pain, Extremity Pain Skin: Reports: Wounds. Denies: Rash Neurological: Denies: Headache, Weakness, Numbness Physical Exam Vital Signs/Narrative: Vital Signs Temp Pulse Resp BP Pulse Ox 10/31/19 10:03 98.1 F 69 16 119/48 L 95 10/31/19 09:30 69 17 136/57 H 96 10/31/19 09:28 98.7 F 69 19 H 136/57 H 94 Inital Vital Signs reviewed: Yes General: Well nourished, Well developed, Obese, No Acute Distress Head: Normocephalic, Atraumatic Eyes: Perrl, EOMI ENT: Moist mucous membranes, No rhinorrhea Neck: Supple, Nontender Cardiovascular: Regular rate, Regular rhythm, No murmurs Respiratory: No distress, CTA bilaterally, Chest nontender Abdomen: Soft, Nontender, Nondistended, Normal bowel sounds Back: Nontender, Normal Inspection Extremities: Nontender, No edema Skin: - - Patient has stage I decubitus ulcer bilaterally she has some mild erythema of pretty much the lower buttocks and perineum and proximal posterior thighs. I do not appreciate any fluctuance or induration to suggest abscess. There is some areas that have excoriated and are mildly oozing blood. Neurological: Alert, Oriented x3, Cranial nerves II-XII grossly intact, Normal Strength, Normal Sensation, - - The patient is globally weak. She cannot assist us in getting up in the bed. She can help roll from side to side but most movement has to be formed by staff. Psychological: Normal affect, Normal Mood Diagnostic/Tx/Re-eval Laboratory Last Values WBC 9.7 K/mm3 (4.4-11.0) 10/31/19 09:35 RBC 3.42 M/mm3 (4.2-5.4) L 10/31/19 09:35 Hgb 10.2 g/dL (12.0-15.0) L 10/31/19 09:35 Hct 33.2 % (37-47) L 10/31/19 09:35 MCV 97.1 fL (81-99) 10/31/19 09:35 MCH 29.8 pg (27.0-32.0) 10/31/19 09:35 MCHC 30.7 g/dL (32-36) L 10/31/19 09:35 RDW Std Deviation 52.2 fl (35.1-43.9) H 10/31/19 09:35 RDW Coeff of Zelda 14.7 % (11.6-14.6) H 10/31/19 09:35 Plt Count 261 K/mm3 (150-450) 10/31/19 09:35 MPV 10.6 fl (6.2-12.0) 10/31/19 09:35 Immature Gran % (Auto) 0.400 % (0.0-0.9) 10/31/19 09:35 Neut % (Auto) 74.1 % (47-70) H 10/31/19 09:35 Lymph % (Auto) 12.8 % (19-41) L 10/31/19 09:35 [place] % (Auto) 7.9 % (0-10) 10/31/19 09:35 Eos % (Auto) 4.4 % (0-5) 10/31/19 09:35 Baso % (Auto) 0.4 % (0-1) 10/31/19 09:35 Absolute Neuts (auto) 7.2 X10^3/uL (2.0-7.7) 10/31/19 09:35 Absolute Lymphs (auto) 1.25 X10^3/uL (0.83-4.51) 10/31/19 09:35 Nucleated RBC % 0 % (0-5) 10/31/19 09:35 PT 21.4 SECONDS (11.7-14.9) H 10/31/19 09:35 INR 1.9 10/31/19 09:35 APTT 36.8 Seconds (24.1-36.2) H 10/31/19 09:35 Sodium 140 mmol/L (136-145) 10/31/19 09:35 Potassium 3.8 mmol/L (3.5-5.1) 10/31/19 09:35 Chloride 104 mmol/L (98-107) 10/31/19 09:35 Carbon Dioxide 32.0 mmol/L (21.0-32.0) 10/31/19 09:35 Anion Gap 4 (5-15) L 10/31/19 09:35 BUN 26 mg/dL (7-18) H 10/31/19 09:35 Creatinine 1.24 mg/dL (0.55-1.02) H 10/31/19 09:35 Estim Creat Clear Calc 37.83 ml/min 10/31/19 09:35 Est GFR (MDRD) Af Amer 55 mL/min (>60) L 10/31/19 09:35 Est GFR (MDRD) Non-Af 45 mL/min (>60) L 10/31/19 09:35 BUN/Creatinine Ratio 21.0 RATIO (10-20) H 10/31/19 09:35 Glucose 189 mg/dL (74-106) H 10/31/19 09:35 Lactic Acid 2.0 mmol/L (0.4-1.9) 10/31/19 09:35 Calcium 8.9 mg/dL (8.5-10.1) 10/31/19 09:35 Total Bilirubin 0.30 mg/dL (0.20-1.00) 10/31/19 09:35 Direct Bilirubin 0.12 mg/dL (0.00-0.30) 10/31/19 09:35 AST 20 U/L (15-37) 10/31/19 09:35 ALT 18 U/L (13-56) 10/31/19 09:35 Alkaline Phosphatase 73 U/L (45-117) 10/31/19 09:35 Total Protein 7.6 g/dL (6.4-8.2) 10/31/19 09:35 Albumin 2.9 g/dL (3.2-5.0) L 10/31/19 09:35 Globulin 4.7 g/dL (2.2-4.2) H 10/31/19 09:35 Urine Color Yellow (Yellow) 10/31/19 10:35 Urine Clarity Sl. Cloudy (Clear) 10/31/19 10:35 Urine pH 9.0 (5.0 - 8.0) 10/31/19 10:35 Ur Specific [place] 1.015 (1.002-1.030) 10/31/19 10:35 Urine Protein 30 mg/dl (Negative) H 10/31/19 10:35 Urine Glucose (UA) Normal mg/dl (Normal) 10/31/19 10:35 Urine Ketones Negative mg/dl (Negative) 10/31/19 10:35 Urine Occult Blood 10 /ul (Negative) H 10/31/19 10:35 Urine Nitrite Positive (Negative) H 10/31/19 10:35 Urine Bilirubin Negative mg/dL (Negative) 10/31/19 10:35 Urine Urobilinogen Normal mg/dl (Normal) 10/31/19 10:35 Ur Leukocyte Esterase 500 /ul (Negative) H 10/31/19 10:35 Urine RBC 0-5 SEEN /hpf (0-5) 10/31/19 10:35 Urine WBC 5-10 SEEN /hpf (0-5) 10/31/19 10:35 Ur Squamous Epith Cells 0 SEEN /hpf (5-10) 10/31/19 10:35 Triple Phos Crystals 1+ /hpf (<or=1+) 10/31/19 10:35 Urine Bacteria 2+ /hpf (None Seen) 10/31/19 10:35 Urine Mucus 0 SEEN /hpf (<or=2+) 10/31/19 10:35 - Medical Decision Making Patient received a dose of vancomycin. Patient essentially is stuck in a wheelchair which is going to can continue to cause decline in her ability to heal. She notes progressive weakness I think it is simply from immobility. If she gets into bed to offload the buttock her can move her around. She is in agreement that she needs to go to prison facility to heal. Patient has no fever. Her white count is normal. Her lactic acid is 2.0. Her last wound culture grew out enterococcus. There is been no recent urine culture. Though her urine today is 2+ bacteria positive nitrates and only 5-10 white blood cells. This could be colonization. The last urine culture was 4 years ago which grew out Klebsiella. I ordered a urine culture. Patient I believe should be admitted to the hospital until we can get her to prison facility. ED Disposition - Plan for ED Patient: Disposition: Acute Care Hospital [facility] Diagnosis: Morbid obesity, Type 2 diabetes mellitus with other circulatory complications, Venous insufficiency (chronic) (peripheral), Decubitus ulcer of left buttock, Decubitus ulcer of right buttock, Cellulitis, Failure to thrive in adult, UTI (urinary tract infection) Referrals: Nasreen Jarrett MD [Primary Care Provider] -
[2019-10-31 10:28] LABS: International Normalized Ratio 1.9; Prothrombin Time (Protime)PT. 21.4 SECONDS (11.7-14.9)
[2019-10-31 10:29] LABS: Partial Thromboplast Time 36.8 Seconds (24.1-36.2)
[2019-10-31 10:41] LABS: Mucous, Urine 0 SEEN /hpf (<or=2+); Squamous Epithelial Cells - UA 0 SEEN /hpf (5-10)
[2019-10-31 10:44] LABS: AST(SGOT) 20 U/L (15-37); Alanine Aminotransfer ALT/SGPT 18 U/L (13-56); Albumin, Serum 2.9 g/dL (3.2-5.0); Alkaline Phosphatase 73 U/L (45-117); Anion Gap 4 (5-15); BUN 26 mg/dL (7-18); Bilirubin, Direct 0.12 mg/dL (0.00-0.30); Calcium,Total 8.9 mg/dL (8.5-10.1); Chloride 104 mmol/L (98-107); Creatinine, Serum 1.24 mg/dL (0.55-1.02); EST Glomerular Filtration Rate 45 mL/min (>60); Est Glom Filt Rate - Afr Amer 55 mL/min (>60); Estimated Creatinine Clearance 37.83 ml/min; Globulin 4.7 g/dL (2.2-4.2); Glucose 189 mg/dL (74-106); Potassium 3.8 mmol/L (3.5-5.1); Protein, Total 7.6 g/dL (6.4-8.2); Sodium Level 140 mmol/L (136-145)
[2019-10-31 10:52] LABS: Color, Urine Yellow (Yellow); Glucose, Dipstick Normal (Normal); Ketone-Dipstick Negative (Negative); Leukocyte Esterase-Dipstick 500 /ul (Negative); Nitrite-Dipstick Positive (Negative); Occult Blood-Urine 10 /ul (Negative); Protein-Dipstick 30 mg/dl (Negative); Specific Gravity, Urine 1.015 (1.002-1.030); Urine Bilirubin Dipstick Negative (Negative); Urine Clarity Sl. Cloudy (Clear); Urine Urobilinogen Normal (Normal)
[2019-10-31 11:01] LABS: Bacteria 2+ /hpf (None Seen); Red Blood Cells-Urine 0-5 SEEN /hpf (0-5); Triple Phosphate Crystals Ur 1+ /hpf (<or=1+); White Blood Cells 5-10 SEEN /hpf (0-5)
[2019-10-31] MEDS: HYDROcodone Bitartrate/Apap 5/325 Tablet PO (12:08)
--- NOTE | 2019-10-31 12:21 | HP.PCM_ITS ---
History of Present Illness Date of Admission: 10/31/19 Chief Complaint: FTT, Cellulitis, Weakness The patient is a 74 year old F with a PMH as below who presents from home with worsening weakness, and increasing pain in her buttocks over the last several days. She is seen at the wound care clinic for chronic decubitus ulcers as well as developing bilateral lower extremity ulcers. She states that the ulcers have been getting worse and the pain is been getting worse and she is unable to complete her activities of daily living. She is unable to lay flat in the bed because she is unable to get up on her own and her cannot lift her. Initially on admission her lactic acid is 2.0 which did improve to 1.1. She was started on vancomycin in the ER as well as Zosyn she does have a chronic Soriano for chronic incontinence and her leukocyte esterase is 500 and her urine nitrites are positive with positive urine white blood cells as well as 2+ urine bacteria. We will send for urine culture as well as blood cultures. She denies any fever at home and states that she was just treated for a UTI in early September. She states that she seems to have been getting worse from a wound standpoint over the last week or so since her previous appointment. Also she might have an acute kidney injury, however her most recent creatinine turn from 2017. So we will start her on fluids and trend. 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) Edema of both legs (Chronic) Diabetes mellitus, type II (Chronic) Hypertension (Chronic) Hyperlipidemia (Chronic) Morbid obesity (Chronic) Chronic Venous Stasis (Chronic) PVD (peripheral vascular disease) (Chronic) Overflow stress urinary incontinence in female (Chronic) COPD (chronic obstructive pulmonary disease) (Chronic) Chronic respiratory failure (Chronic) Cellulitis (Chronic) Chronic acquired lymphedema (Chronic) Allergies omeprazole magnesium [From Prilosec] Allergy (Verified 10/31/19 09:27) Rash rofecoxib [From Vioxx] Allergy (Verified 10/31/19 09:27) Swelling sulfamethoxazole [From Bactrim] Allergy (Verified 10/31/19 09:27) Other BURNING AROUND MOUTH trimethoprim [From Bactrim] Allergy (Verified 10/31/19 09:27) Other BURNING AROUND MOUTH aspirin Adverse Reaction (Verified 10/31/19 09:27) Other omeprazole [From Prilosec] Adverse Reaction (Verified 10/31/19 09:27) Nausea omonopril Allergy (Uncoded 10/31/19 09:27) Other COUGH SEASONAL ALLERGIES Allergy (Uncoded 10/31/19 09:27) PT UNSURE OF REACTION Home Medications: Ambulatory Orders Medication Instructions Recorded Cyanocobalamin (Vitamin B-12) 1,000 mcg PO DAILY 10/31/19 [Vitamin B-12] Fluoxetine [Prozac] 20 mg PO DAILY 10/31/19 Furosemide 2 tab PO BID 10/31/19 Iron,Carbonyl [Iron Chews] 10 mg PO DAILY 10/31/19 Loperamide [Imodium] 2 mg PO DAILY 10/31/19 Losartan Potassium [Cozaar] 25 mg PO DAILY 10/31/19 Magnesium Oxide [Magnesium] 1,000 mg PO DAILY 10/31/19 Mesalamine [Lialda] 2 tab PO DAILY 10/31/19 Metoprolol Succinate 25 mg PO DAILY 10/31/19 Multivitamins,Therapeutic 1 tab PO DAILY 10/31/19 [Multivitamin] Warfarin Sodium [Coumadin] 1 mg PO SUTUTH 10/31/19 Warfarin [Coumadin (PBKC)] 2 mg PO MOWEFRSA 10/31/19 Surgical History: cataract, cholecystectomy, total knee arthroplasty, - - L carpal tunnel surgery, IVC Filter Psychiatric History: Anxiety [employer] History: cervical cancer - Unclear, per patient report early stage, 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 Smoking Status: Former smoker Tobacco Use: Cigarettes Alcohol: None Drugs: None - *Family History Maternal History Items: - - Arthritis Paternal History Items: Heart Disease Review of Systems Constitutional: Reports: Weakness. Denies: Chills, Fever, Weight Change HEENT: Denies: Head Aches, Sinus Congestion, Sinus Drainage Cardiovascular: Denies: Chest Pain, Palpitations Respiratory: Denies: Cough, Shortness of breath at rest, Sputum production Gastrointestinal: Denies: Abdominal Pain, Nausea, Vomiting Genitourinary: Reports: Incontinence - Chronic Soriano. Denies: Dysuria Musculoskeletal: Denies: Joint Pain, Joint Tenderness Skin: Reports: Lesions - Cellulitis in her buttock, Wounds - Bilateral lower extremities. Denies: Rash Neurological: Denies: Numbness, Tingling, Focal weakness Psychiatric: Denies: Anxiety, Depression Hematologic/ Lymphatic: Denies: Easy Bruising, Easy Bleeding VTE Information - Inpt Only VTE Present on Admission: No Patient Problems: Active and Suspected Problems Failure to thrive in adult (Acute) UTI (urinary tract infection) (Acute) - Physical Exam Vitals/I&O's: Vital Signs Temp Pulse Resp BP Pulse Ox 98 F 77 17 126/62 H 97 10/31/19 12:00 10/31/19 12:00 10/31/19 12:00 10/31/19 12:00 10/31/19 12:00 Oxygen Flow Rate (L/min) 2 Oxygen Delivery Method Room Air Weight: 256 lb 6.362 oz Body Mass Index (BMI) 41.3 General: Alert, Oriented x3, Cooperative, No apparent distress HEENT: Atraumatic, PERRLA, EOMI, Normocephalic Oral: Dry Mucosa Neck: Supple, No JVD Lungs: Clear to auscultation, Normal air movement, No rhonchi, No wheeze, No rales, Diminished Cardiovascular: Regular rate, Regular Rhythm, Normal S1, Normal S2, No murmurs Abdomen: Soft, Non Tender, Non-Distended, No Hepato-splenomegaly Extremities: No edema, Capillary Refill Less than 3 Seconds Skin: Excoriated - Extensive excoriations and redness in bilateral buttocks. Extending anteriorly to both thighs and the perineum. She also has bilateral lower extremity wounds that are currently wrapped Neurological: Neuro grossly intact, Sensory exam intact to light touch and pain Psych/Mental Status: Normal Affect, Appropriate Laboratory Results 10/31/19 09:35: WBC 9.7, RBC 3.42 L, Hgb 10.2 L, Hct 33.2 L, MCV 97.1, MCH 29.8, MCHC 30.7 L, RDW Std Deviation 52.2 H, RDW Coeff of Zelda 14.7 H, Plt Count 261, MPV 10.6, Immature Gran % (Auto) 0.400, Neut % (Auto) 74.1 H, Lymph % (Auto) 12.8 L, Hand % (Auto) 7.9, Eos % (Auto) 4.4, Baso % (Auto) 0.4, Absolute Neuts (auto) 7.2, Absolute Lymphs (auto) 1.25, Nucleated RBC % 0 10/31/19 09:35: PT 21.4 H, INR 1.9, APTT 36.8 H 10/31/19 09:35: Sodium 140, Potassium 3.8, Chloride 104, Carbon Dioxide 32.0, Anion Gap 4 L, BUN 26 H, Creatinine 1.24 H, Estim Creat Clear Calc 37.83, Est GFR (MDRD) Af Amer 55 L, Est GFR (MDRD) Non-Af 45 L, BUN/Creatinine Ratio 21.0 H , Glucose 189 H, Calcium 8.9, Total Bilirubin 0.30, Direct Bilirubin 0.12, AST 20, ALT 18, Alkaline Phosphatase 73, Total Protein 7.6, Albumin 2.9 L, Globulin 4.7 H 10/31/19 09:35: Lactic Acid 2.0 10/31/19 10:35: Urine Color Yellow, Urine Clarity Sl. Cloudy, Urine pH 9.0, Ur Specific [place] 1.015, Urine Protein 30 H, Urine Glucose (UA) Normal, Urine Ketones Negative, Urine Occult Blood 10 H, Urine Nitrite Positive H, Urine Bilirubin Negative, Urine Urobilinogen Normal, Ur Leukocyte Esterase 500 H, Urine RBC 0-5 SEEN, Urine WBC 5-10 SEEN, Ur Squamous Epith Cells 0 SEEN, Triple Phos Crystals 1+, Urine Bacteria 2+, Urine Mucus 0 SEEN Current Medications Vancomycin HCl 2,000 mg/ (Sodium Chloride) 540 mls @ 250 mls/hr IV X1 ONE Stop: 10/31/19 14:09 Last Admin: 10/31/19 12:03 Dose: 250 mls/hr Documented by: Assessment/Plan All Active Problems Ulcer of left lower extremity with fat layer exposed (Acute) Ulcer of right lower extremity with fat layer exposed (Acute) Failure to thrive in adult (Acute) UTI (urinary tract infection) (Acute) Cellulitis of left lower extremity (Acute) Non-pressure chronic ulcer of left calf with fat layer exposed (Resolved) Generalized weakness (Acute) Bilateral lower leg cellulitis (Acute) 1. Extensive excoriation and possibly cellulitis with stage I decubitus ulcers bilaterally and bilateral lower extremity wounds/chronic venous stasis/weakness/inability to complete ADLs/morbid obesity -We will continue with vancomycin and Zosyn for now, and obtain a wound nurse consult -PT and OT -Given her inability to complete ADLs, her progressive weakness, and the worsening wounds in her buttock and legs, will likely need placement for continued therapy and wound management given the inability to have the wound care at home per her -Continue with Coumadin, INR is 1.9 -Lactic acid on admission was 2.0, this has improved with IV fluids to 1.1 2. Chronic Soriano secondary to chronic incontinence with UTI -Last urine culture was in 2017 -Current UA does appear consistent to be with a UTI, should be covered with antibiotics used for her cellulitis though will adjust based on sensitivity data 3. HTN/HLD/morbid obesity/PUJA -We will hold her Lasix secondary to giving her IV fluids given her creatinine being 11.4 -With her home blood pressure medications -Whenever she sleeps her oxygen saturation drops into the 70s therefore she will likely need nocturnal oxygen. We will plan on obtaining a nocturnal pulse ox prior to discharge. She states that she used to have a CPAP and then was told that she needed to switch to a BiPAP however insurance would not cover the BiPAP and her CPAP is too old now and she is unable to have a sleep study done to get a new order. DVT: Coumadin Inpatient E&M: [id number] Init Hosp L2
--- NOTE | 2019-10-31 12:51 | NURSING ---
med surg decubitus ulcer cellulitis, failure to thrive, uti JULIANO
[2019-10-31 14:17] LABS: Reflex Lactate? Y
[2019-10-31] MEDS: 0.9% Normal Saline 1,000 ML 100 ML IV (14:46)
[2019-10-31 15:04] LABS: Lactic Acid 1.1 mmol/L (0.4-1.9)
--- NOTE | 2019-10-31 16:55 | NURSING ---
Chris from pharmacy called spoke to this nurse. Oringinally this nurse documented against Zosyn 4.5gm dose ordered in Ed b/c I thought it was discontinued. Chris from Pharmacy said to give it as the loading dose and then then 4hr zosyn would be times after the 30min infusion was given.
--- NOTE | 2019-10-31 17:21 | NURSING ---
Bs is 120 according to patients internal monitor that measures her blood sugar.
--- NOTE | 2019-10-31 18:36 | PCM.RX.CS ---
Consult Pharmacy has been consulted to manage selected antiobiotic: Vancomycin Type of Consult: New start Suspected Infection: Skin/Soft tissue Prior Doses of Antibiotics Received/Current Regimen: Had 2000mg iv x 1 in ER 6.20.20 @1203. Labs: Sodium 140 mmol/L (136-145) 10/31/19 09:35 Potassium 3.8 mmol/L (3.5-5.1) 10/31/19 09:35 Chloride 104 mmol/L (98-107) 10/31/19 09:35 Carbon Dioxide 32.0 mmol/L (21.0-32.0) 10/31/19 09:35 Anion Gap 4 (5-15) L 10/31/19 09:35 BUN 26 mg/dL (7-18) H 10/31/19 09:35 Creatinine 1.24 mg/dL (0.55-1.02) H 10/31/19 09:35 Est GFR (MDRD) Af Amer 55 mL/min (>60) L 10/31/19 09:35 Est GFR (MDRD) Non-Af 45 mL/min (>60) L 10/31/19 09:35 BUN/Creatinine Ratio 21.0 RATIO (10-20) H 10/31/19 09:35 Glucose 189 mg/dL (74-106) H 10/31/19 09:35 Weight used for dosin kg Estimated Creatinine Clearance: ~52ml/min Goal Trough: 15-20 mcg/mL Pharmacy Plan for Drug Dosing: Renal status reviewed with Cr 1.24 and CrCl ~52ml/min using adjusted body weight of 81.7kg for calculation. Will begin 1250mg iv q12h starting 12hrs after loading dose in ER. Have ordered Trough level for 6.22.20 before 4th dose of therapy. Pharmacy Service will continue to monitor and adjust dosing as required. Follow-Up Labs: Trough Vancomycin - 6.22.20 @2330 before 0000 dose
[2019-10-31] MEDS: Juven (unflavored) Packet 1 PACKET PO (18:41)
[2019-10-31] MEDS: Glucerna Shake 120 ML LIQUID PO ×2 (18:41→22:29)
[2019-10-31] MEDS: 0.9% Saline Lock 10 ML Syringe IV ×2 (20:14→22:39)
--- NOTE | 2019-10-31 22:10 | NURSING ---
Bs is 225 according to patients internal monitor - shawna free style
[2019-10-31] MEDS: Insulin Lispro 100 UNIT/ML INSULN.PEN SC (22:16)
[2019-10-31] MEDS: Nystatin Powder 15gm Bottle 1 APPLIC TOPICAL (22:20)
[2019-10-31] MEDS: Menthol/Lanolin/Calamine/Znox 113 GM Tube 1 APPLIC TOPICAL (22:21)
[2019-10-31] MEDS: Acetaminophen 325 MG Tablet 650 MG PO (22:45)
[2019-11-01] MEDS: 0.9% Normal Saline 1,000 ML 100 ML IV ×2 (00:44→14:06)
[2019-11-01 02:39] VITALS: BP 121/57; PULSE 75; RESP 18; TEMP 37.3; O2SAT 96
[2019-11-01 05:30] LABS: Absolute Lymphocyte Count 0.72 X10^3/uL (0.83-4.51); Absolute Neutrophil Count 5.5 X10^3/uL (2.0-7.7); Basophil# 0.02 X10^3/uL; Basophil% 0.3 % (0-1); Eosinophil# 0.42 X10^3/uL; Eosinophils% 5.8 % (0-5); Hematocrit 30.9 % (37-47); Hemoglobin 9.1 g/dL (12.0-15.0); Lymphocyte # 0.72 X10^3/ul (4.0); Mean Corp Hgb Conc 29.4 g/dL (32-36); Mean Corpuscular Hgb 29.2 pg (27.0-32.0); Mean Platelet Vol. 10.3 fl (6.2-12.0); Monocyte# 0.52 X10^3/uL; Monocyte% 7.2 % (0-10); NRBC Flagged by Analyzer 0 % (0-5); Neutrophil # 5.47 X10^3/uL (2.7-7.7); Neutrophil % 76.3 % (47-70); Platelet Count 229 K/mm3 (150-450); RBC Distribution Width CV 14.9 % (11.6-14.6); RBC Distribution Width SD 53.2 fl (35.1-43.9); Red Blood Count 3.12 M/mm3 (4.2-5.4); White Blood Count 7.2 K/mm3 (4.4-11.0)
[2019-11-01 05:49] LABS: International Normalized Ratio 2.1; Prothrombin Time (Protime)PT. 22.9 SECONDS (11.7-14.9)
[2019-11-01 05:55] LABS: Anion Gap 6 (5-15); BUN 24 mg/dL (7-18); BUN/Creat Ratio 23.3 RATIO (10-20); Calcium,Total 8.1 mg/dL (8.5-10.1); Chloride 109 mmol/L (98-107); Creatinine, Serum 1.03 mg/dL (0.55-1.02); EST Glomerular Filtration Rate 56 mL/min (>60); Est Glom Filt Rate - Afr Amer 68 mL/min (>60); Estimated Creatinine Clearance 45.54 ml/min; Glucose 152 mg/dL (74-106); Potassium 3.9 mmol/L (3.5-5.1); Sodium Level 143 mmol/L (136-145)
--- NOTE | 2019-11-01 07:00 | NURSING ---
Blood sugar is 124 according to patients internal monitor - shawna free style
[2019-11-01] MEDS: Acetaminophen 325 MG Tablet 650 MG PO ×2 (07:35→21:50)
[2019-11-01 07:44] VITALS: BP 121/51; PULSE 72; RESP 18; TEMP 37.4; O2SAT 92
[2019-11-01] MEDS: Menthol/Lanolin/Calamine/Znox 113 GM Tube 1 APPLIC TOPICAL ×2 (08:06→21:29)
[2019-11-01] MEDS: Juven (unflavored) Packet 1 PACKET PO ×2 (08:06→16:56)
[2019-11-01] MEDS: Nystatin Powder 15gm Bottle 1 APPLIC TOPICAL ×2 (08:07→21:36)
--- NOTE | 2019-11-01 10:24 | PN_ITS ---
Patient Problems: Active and Suspected Problems Failure to thrive in adult (Acute) UTI (urinary tract infection) (Acute) Subjective: Little bit better with antibiotics and the IV fluids Vitals/I&O's: Vital Signs Temp Pulse Resp BP Pulse Ox 99.4 F H 72 18 121/51 H 92 11/01/19 07:44 11/01/19 07:44 11/01/19 07:44 11/01/19 07:44 11/01/19 07:44 Oxygen Flow Rate (L/min) 1 Oxygen Delivery Method Room Air Weight: 254 lb 6.615 oz Body Mass Index (BMI) 41.0 Intake and Output for Last 24 Hours 10/30/19 10/31/19 11/01/19 23:59 23:59 23:59 Intake Total 1297.42 / 1297.42 1161.17 / 1161.17 Output Total 1100 / 1100 400 / 400 Balance 197.42 / 197.42 761.17 / 761.17 General: Alert, Oriented x3, Cooperative, No apparent distress HEENT: Atraumatic, PERRLA, EOMI, Normocephalic Oral: Dry Mucosa Neck: Supple, No JVD Lungs: Clear to auscultation, Normal air movement, No rhonchi, No wheeze, No rales, Diminished Cardiovascular: Regular rate, Regular Rhythm, Normal S1, Normal S2, No murmurs Abdomen: Soft, Non Tender, Non-Distended, No Hepato-splenomegaly Extremities: No edema, Capillary Refill Less than 3 Seconds Skin: Excoriated - Extensive excoriations and redness in bilateral buttocks. Extending anteriorly to both thighs and the perineum. She also has bilateral lower extremity wounds that are currently wrapped Neurological: Neuro grossly intact, Sensory exam intact to light touch and pain Psych/Mental Status: Normal Affect, Appropriate Laboratory Results 10/31/19 09:35: PT 21.4 H, INR 1.9, APTT 36.8 H 10/31/19 09:35: Sodium 140, Potassium 3.8, Chloride 104, Carbon Dioxide 32.0, Anion Gap 4 L, BUN 26 H, Creatinine 1.24 H, Estim Creat Clear Calc 37.83, Est GFR (MDRD) Af Amer 55 L, Est GFR (MDRD) Non-Af 45 L, BUN/Creatinine Ratio 21.0 H , Glucose 189 H, Calcium 8.9, Total Bilirubin 0.30, Direct Bilirubin 0.12, AST 20, ALT 18, Alkaline Phosphatase 73, Total Protein 7.6, Albumin 2.9 L, Globulin 4.7 H 10/31/19 09:35: Lactic Acid 2.0 10/31/19 10:35: Urine Color Yellow, Urine Clarity Sl. Cloudy, Urine pH 9.0, Ur Specific [place] 1.015, Urine Protein 30 H, Urine Glucose (UA) Normal, Urine Ketones Negative, Urine Occult Blood 10 H, Urine Nitrite Positive H, Urine Bilirubin Negative, Urine Urobilinogen Normal, Ur Leukocyte Esterase 500 H, Urine RBC 0-5 SEEN, Urine WBC 5-10 SEEN, Ur Squamous Epith Cells 0 SEEN, Triple Phos Crystals 1+, Urine Bacteria 2+, Urine Mucus 0 SEEN 10/31/19 12:25: COVID-19 (JORI) Pending 10/31/19 14:31: Lactic Acid 1.1 11/01/19 05:04: WBC 7.2, RBC 3.12 L, Hgb 9.1 L, Hct 30.9 L, MCV 99.0, MCH 29.2, MCHC 29.4 L, RDW Std Deviation 53.2 H, RDW Coeff of Zelda 14.9 H, Plt Count 229, MPV 10.3, Immature Gran % (Auto) 0.400, Neut % (Auto) 76.3 H, Lymph % (Auto) 10.0 L, [place] % (Auto) 7.2, Eos % (Auto) 5.8 H, Baso % (Auto) 0.3, Absolute Neuts (auto) 5.5, Absolute Lymphs (auto) 0.72 L, Nucleated RBC % 0 11/01/19 05:04: Sodium 143, Potassium 3.9, Chloride 109 H, Carbon Dioxide 28.0, Anion Gap 6, BUN 24 H, Creatinine 1.03 H, Estim Creat Clear Calc 45.54, Est GFR (MDRD) Af Amer 68, Est GFR (MDRD) Non-Af 56 L, BUN/Creatinine Ratio 23.3 H, Glucose 152 H, Calcium 8.1 L 11/01/19 05:04: PT 22.9 H, INR 2.1 Current Medications Acetaminophen (Tylenol) 650 mg PO Q6H PRN PRN PRN Reason: Pain Score 1-10/Temp > 100.7 F Last Admin: 11/01/19 07:35 Dose: 650 mg Documented by: Calamine/Phenol (Calmoseptine Ointment) 1 applic TOPICAL BID [facility]; Protocol Last Admin: 11/01/19 08:06 Dose: 1 applicatio Documented by: Cyanocobalamin (Vitamin B12) 1,000 mcg PO DAILY [facility] Fluoxetine HCl (Prozac) 20 mg PO DAILY [facility] Sodium Chloride () 250 mls @ 15 mls/hr IV .[id number] PRN PRN Reason: Saline Flush Last Infusion: 11/01/19 05:53 Dose: 0 mls/hr Documented by: Sodium Chloride () 250 mls @ 15 mls/hr IV .[id number] PRN PRN Reason: Additional IVPB Infusion Sodium Chloride () 1,000 mls @ 100 mls/hr IV .Q10H [facility] Last Infusion: 11/01/19 02:31 Dose: 100 mls/hr Documented by: Vancomycin IV Pharmacy to Dose (1 ea/ Sodium Chloride) 500 mls @ 250 mls/hr IV PRN PRN; Protocol PRN Reason: Rx to Dose Piperacillin Sod/Tazobactam (Sod 3.375 gm/ Sodium Chloride) 50 mls @ 12.5 mls/hr IV Q8 [facility] Last Admin: 11/01/19 05:53 Dose: 12.5 mls/hr Documented by: Vancomycin HCl 1,250 mg/ (Sodium Chloride) 275 mls @ 167 mls/hr IV Q12H [facility] Last Infusion: 11/01/19 02:32 Dose: Infused Documented by: Insulin Human Lispro (Humalog Kwikpen (Bkc)) 0 unit SC ACHS [facility]; Protocol Last Admin: 11/01/19 06:59 Dose: Not Given Documented by: Loperamide HCl (Imodium) 2 mg PO DAILY [facility] Losartan Potassium (Cozaar) 25 mg PO DAILY [facility] Mesalamine (Lialda) 2.4 gm PO DAILY [facility] Metoprolol Succinate (Toprol Xl ([place])) 25 mg PO DAILY [facility] Nutritional Formula (Lactose Free) (Glucerna Shake) 120 ml PO 4X/DAY [facility] Last Admin: 10/31/19 22:29 Dose: 120 ml Documented by: Nystatin (Mycostatin Powder) 1 applic TOPICAL BID [facility]; Protocol Last Admin: 11/01/19 08:07 Dose: 1 applicatio Documented by: Ondansetron HCl (Zofran) 4 mg IV Q8H PRN PRN PRN Reason: NAUSEA/VOMITING Sodium Chloride () 10 - 40 ml IV UD PRN PRN Reason: SALINE FLUSH Last Admin: 10/31/19 22:39 Dose: 10 ml Documented by: Warfarin Sodium (Coumadin (Pbkc)) 2 mg PO MOWEFRSA [facility] Warfarin Sodium (Jantoven) 1 mg PO SUTUTH [facility] STROKE Vital Signs/Narrative: Vital Signs Temp Pulse Resp BP Pulse Ox 11/01/19 07:44 99.4 F H 72 18 121/51 H 92 Medical Necessity - Tobacco Use Smoking Status: Former smoker Tobacco Use: Cigarettes Assessment/Plan All Active Problems Ulcer of left lower extremity with fat layer exposed (Acute) Ulcer of right lower extremity with fat layer exposed (Acute) Failure to thrive in adult (Acute) UTI (urinary tract infection) (Acute) Cellulitis of left lower extremity (Acute) Non-pressure chronic ulcer of left calf with fat layer exposed (Resolved) Generalized weakness (Acute) Bilateral lower leg cellulitis (Acute) 1. Extensive excoriation and possibly cellulitis with stage I decubitus ulcers bilaterally and bilateral lower extremity wounds/chronic venous stasis/weakness/inability to complete ADLs/morbid obesity/ZAID -We will continue with vancomycin and Zosyn for now, and obtain a wound nurse consult -PT and OT -Given her inability to complete ADLs, her progressive weakness, and the worsening wounds in her buttock and legs, will likely need placement for continued therapy and wound management given the inability to have the wound care and therapy at home per her -Continue with Coumadin, INR is 1.9 -Lactic acid on admission was 2.0, this has improved with IV fluids to 1.1 -Creatinine is down to 1.03 from 1.24 on admission 2. Chronic Soriano secondary to chronic incontinence with UTI -Last urine culture was in 2017 -Current UA does appear consistent to be with a UTI, should be covered with antibiotics used for her cellulitis though will adjust based on sensitivity data 3. HTN/HLD/morbid obesity/PUJA -We will hold her Lasix secondary to giving her IV fluids given her creatinine being 1.24 on admission -With her home blood pressure medications -Whenever she sleeps her oxygen saturation drops into the 70s therefore she will likely need nocturnal oxygen. We will plan on obtaining a nocturnal pulse ox prior to discharge. She states that she used to have a CPAP and then was told that she needed to switch to a BiPAP however insurance would not cover the BiPAP and her CPAP is too old now and she is unable to have a sleep study done to get a new order. DVT: Coumadin Inpatient E&M: [id number] Subs Hosp L2
[2019-11-01] MEDS: FLUoxetine 20 MG Capsule PO (10:59)
[2019-11-01] MEDS: Loperamide 2 MG Capsule PO (10:59)
[2019-11-01 11:00] VITALS: PULSE 72
[2019-11-01] MEDS: Metoprolol(XL)Succ 25 MG Tablet PO (11:00)
[2019-11-01] MEDS: Cyanocobalamin 500 MCG Tablet 1000 MCG PO (11:00)
[2019-11-01] MEDS: Glucerna Shake 120 ML LIQUID PO ×4 (11:02→21:49)
[2019-11-01] MEDS: Losartan Potassium 25 MG Tablet PO (11:03)
[2019-11-01] MEDS: Mesalamine 1.2 GM Tablet 2.4 GM PO (11:03)
--- NOTE | 2019-11-01 11:10 | NURSING ---
bgt 186 on pt's internal monitor.
[2019-11-01] MEDS: Insulin Lispro 100 UNIT/ML INSULN.PEN SC ×2 (11:11→21:51)
[2019-11-01 13:48] VITALS: BP 123/48; PULSE 72; RESP 16; TEMP 37.3; O2SAT 95
--- NOTE | 2019-11-01 17:06 | NURSING ---
Patients bgt= 133 at this time per internal monitor.
--- NOTE | 2019-11-01 17:16 | NURSING ---
Bibi with respiratory notified of overnight trending pulse ox ordered for tonight.
[2019-11-01 20:24] VITALS: BP 134/55; PULSE 72; RESP 18; TEMP 37.2; O2SAT 97
--- NOTE | 2019-11-01 21:49 | NURSING ---
Blood sugar is 171 according to patients internal monitor - shawna free style
[2019-11-02] MEDS: 0.9% Normal Saline 1,000 ML 100 ML IV ×2 (00:16→14:39)
[2019-11-02 03:54] VITALS: BP 145/58; PULSE 69; RESP 20; TEMP 37.2; O2SAT 92
[2019-11-02 05:55] LABS: Absolute Lymphocyte Count 0.72 X10^3/uL (0.83-4.51); Basophil# 0.04 X10^3/uL; Basophil% 0.6 % (0-1); Eosinophil# 0.41 X10^3/uL; Eosinophils% 6.1 % (0-5); Hematocrit 31.8 % (37-47); Hemoglobin 9.3 g/dL (12.0-15.0); Lymphocyte # 0.72 X10^3/ul (4.0); Lymphocyte % 10.8 % (19-41); Mean Corp Hgb Conc 29.2 g/dL (32-36); Mean Corpuscular Hgb 29.2 pg (27.0-32.0); Mean Corpuscular Volume 99.7 fL (81-99); Mean Platelet Vol. 10.4 fl (6.2-12.0); Monocyte# 0.51 X10^3/uL; Monocyte% 7.6 % (0-10); NRBC Flagged by Analyzer 0 % (0-5); Neutrophil # 4.97 X10^3/uL (2.7-7.7); Neutrophil % 74.5 % (47-70); Platelet Count 210 K/mm3 (150-450); RBC Distribution Width CV 14.6 % (11.6-14.6); RBC Distribution Width SD 52.9 fl (35.1-43.9); Red Blood Count 3.19 M/mm3 (4.2-5.4); White Blood Count 6.7 K/mm3 (4.4-11.0)
[2019-11-02 05:59] LABS: International Normalized Ratio 1.9; Prothrombin Time (Protime)PT. 21.2 SECONDS (11.7-14.9)
[2019-11-02 06:22] LABS: Anion Gap 5 (5-15); BUN 24 mg/dL (7-18); BUN/Creat Ratio 23.3 RATIO (10-20); Calcium,Total 8.4 mg/dL (8.5-10.1); Chloride 110 mmol/L (98-107); Creatinine, Serum 1.03 mg/dL (0.55-1.02); EST Glomerular Filtration Rate 56 mL/min (>60); Est Glom Filt Rate - Afr Amer 68 mL/min (>60); Estimated Creatinine Clearance 45.54 ml/min; Glucose 165 mg/dL (74-106); Sodium Level 142 mmol/L (136-145)
--- NOTE | 2019-11-02 06:32 | NURSING ---
Blood sugar is 149 according to patients internal monitor - shawna free style
[2019-11-02] MEDS: Acetaminophen 325 MG Tablet 650 MG PO (06:37)
[2019-11-02 08:01] VITALS: BP 149/60; PULSE 60; RESP 18; TEMP 36.9; O2SAT 92
[2019-11-02] MEDS: Juven (unflavored) Packet 1 PACKET PO ×2 (08:15→18:06)
[2019-11-02] MEDS: Ondansetron 4 MG/2 ML Vial IV (08:15)
[2019-11-02] MEDS: Nystatin Powder 15gm Bottle 1 APPLIC TOPICAL ×2 (09:58→21:25)
[2019-11-02] MEDS: Menthol/Lanolin/Calamine/Znox 113 GM Tube 1 APPLIC TOPICAL ×2 (09:58→21:25)
[2019-11-02] MEDS: Losartan Potassium 25 MG Tablet PO (09:59)
[2019-11-02] MEDS: Mesalamine 1.2 GM Tablet 2.4 GM PO (10:00)
[2019-11-02] MEDS: Cyanocobalamin 500 MCG Tablet 1000 MCG PO (10:00)
[2019-11-02] MEDS: Loperamide 2 MG Capsule PO (10:00)
[2019-11-02 10:01] VITALS: BP 118/44; PULSE 69
[2019-11-02] MEDS: FLUoxetine 20 MG Capsule PO (10:01)
[2019-11-02] MEDS: Metoprolol(XL)Succ 25 MG Tablet PO (10:01)
--- NOTE | 2019-11-02 11:05 | CASEMGMT ---
[facility] Face to Face with patient for initial transition planning/care coordination assessment. RN EMILY introduced self and role at [facility]. Patient lying in bed, alert and oriented. Patient willing to participate in assessment and is able to answer all questions appropriately. Care providers, pharmacy, and demographics verified. Patient wishes to discharge to SNF, list of SNFs provided to patient. Patient states she has no further needs or concerns at this time. CM to follow for discharge planning needs that may arise. PCP: Luiza Specialists: DORITA Gonzalez Preferred [facility]acy: [facility]: yes Living Will/HPOA: yes, living will only LNOK: Living Arrangements: Patient lives with in bi-level home with ramp to enter the home. Patient has aides to assist with care. Transportation: DME/HHC: Patient states she has raised toilet, hospital bed, lift chair, grab bars, walker, wheelchair, nebulizer, and electric scooter at home. Patient states she has HHC with [facility] for nursing and aides. [facility]. Disposition Plan: Patient to discharge to SNF, patient reviewing list. SW updated regarding SNF request. Vaishnavi PARIKH, RN, CM
--- NOTE | 2019-11-02 11:29 | PCM.PN.HOSP ---
Patient Problems: Active and Suspected Problems Failure to thrive in adult (Acute) UTI (urinary tract infection) (Acute) Subjective: Had a tough night last night with some right-sided back pain from muscle spasms. Otherwise says that she feels feels little bit better and was able to get out of bed with therapy. Vitals/I&O's: Vital Signs Temp Pulse Resp BP Pulse Ox 98.4 F 69 18 118/44 L 92 11/02/19 08:01 11/02/19 10:01 11/02/19 08:01 11/02/19 10:01 11/02/19 08:01 Oxygen Flow Rate (L/min) 1 Oxygen Delivery Method Room Air Weight: 254 lb 6.615 oz Body Mass Index (BMI) 41.0 Intake and Output for Last 24 Hours 10/31/19 11/01/19 11/02/19 23:59 23:59 23:59 Intake Total 1297.42 / 1297.42 3368.42 / 3668.42 1689.17 / 1689.17 Output Total 1100 / 1100 1200 / 1900 1100 / 1100 Balance 197.42 / 197.42 2168.42 / 1768.42 589.17 / 589.17 General: Alert, Oriented x3, Cooperative, No apparent distress HEENT: Atraumatic, PERRLA, EOMI, Normocephalic Oral: Dry Mucosa Neck: Supple, No JVD Lungs: Clear to auscultation, Normal air movement, No rhonchi, No wheeze, No rales, Diminished Cardiovascular: Regular rate, Regular Rhythm, Normal S1, Normal S2, No murmurs Abdomen: Soft, Non Tender, Non-Distended, No Hepato-splenomegaly Extremities: No edema, Capillary Refill Less than 3 Seconds Skin: Excoriated - Extensive excoriations and redness in bilateral buttocks. Extending anteriorly to both thighs and the perineum. 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 Gram negative joyce Laboratory Results 11/02/19 05:25: PT 21.2 H, INR 1.9 11/02/19 05:25: WBC 6.7, RBC 3.19 L, Hgb 9.3 L, Hct 31.8 L, MCV 99.7 H, MCH 29.2, MCHC 29.2 L, RDW Std Deviation 52.9 H, RDW Coeff of Zelda 14.6, Plt Count 210, MPV 10.4, Immature Gran % (Auto) 0.400, Neut % (Auto) 74.5 H, Lymph % (Auto) 10.8 L, [place] % (Auto) 7.6, Eos % (Auto) 6.1 H, Baso % (Auto) 0.6, Absolute Neuts (auto) 5.0, Absolute Lymphs (auto) 0.72 L, Nucleated RBC % 0 11/02/19 05:25: Sodium 142, Potassium 4.0, Chloride 110 H, Carbon Dioxide 27.0, Anion Gap 5, BUN 24 H, Creatinine 1.03 H, Estim Creat Clear Calc 45.54, Est GFR (MDRD) Af Amer 68, Est GFR (MDRD) Non-Af 56 L, BUN/Creatinine Ratio 23.3 H, Glucose 165 H, Calcium 8.4 L Current Medications Acetaminophen (Tylenol) 650 mg PO Q6H PRN PRN PRN Reason: Pain Score 1-10/Temp > 100.7 F Last Admin: 11/02/19 06:37 Dose: 650 mg Documented by: Calamine/Phenol (Calmoseptine Ointment) 1 applic TOPICAL BID [facility]; Protocol Last Admin: 11/02/19 09:58 Dose: 1 applicatio Documented by: Cyanocobalamin (Vitamin B12) 1,000 mcg PO DAILY [facility] Last Admin: 11/02/19 10:00 Dose: 1,000 mcg Documented by: Fluoxetine HCl (Prozac) 20 mg PO DAILY [facility] Last Admin: 11/02/19 10:01 Dose: 20 mg Documented by: Sodium Chloride () 250 mls @ 15 mls/hr IV .[id number] PRN PRN Reason: Saline Flush Last Infusion: 11/02/19 05:38 Dose: 0 mls/hr Documented by: Sodium Chloride () 250 mls @ 15 mls/hr IV .[id number] PRN PRN Reason: Additional IVPB Infusion Sodium Chloride () 1,000 mls @ 100 mls/hr IV .Q10H CYNDI Last Infusion: 11/02/19 01:55 Dose: 100 mls/hr Documented by: Vancomycin IV Pharmacy to Dose (1 ea/ Sodium Chloride) 500 mls @ 250 mls/hr IV PRN PRN; Protocol PRN Reason: Rx to Dose Piperacillin Sod/Tazobactam (Sod 3.375 gm/ Sodium Chloride) 50 mls @ 12.5 mls/hr IV Q8 CYNDI Last Admin: 11/02/19 05:38 Dose: 12.5 mls/hr Documented by: Vancomycin HCl 1,250 mg/ (Sodium Chloride) 275 mls @ 167 mls/hr IV Q12H [facility] Last Infusion: 11/02/19 01:55 Dose: Infused Documented by: Insulin Human Lispro (Humalog Kwikpen (Bkc)) 0 unit SC ACHS [facility]; Protocol Last Admin: 11/02/19 06:31 Dose: Not Given Documented by: Loperamide HCl (Imodium) 2 mg PO DAILY [facility] Last Admin: 11/02/19 10:00 Dose: 2 mg Documented by: Losartan Potassium (Cozaar) 25 mg PO DAILY [facility] Last Admin: 11/02/19 09:59 Dose: 25 mg Documented by: Mesalamine (Lialda) 2.4 gm PO DAILY [facility] Last Admin: 11/02/19 10:00 Dose: 2.4 gm Documented by: Metoprolol Succinate (Toprol Xl ([place])) 25 mg PO DAILY [facility] Last Admin: 11/02/19 10:01 Dose: 25 mg Documented by: Multi-Ingredient Cream (Eucerin) 1 applic TOPICAL BID [facility]; Protocol Last Admin: 11/02/19 09:59 Dose: 1 applicatio Documented by: Nutritional Formula (Lactose Free) (Glucerna Shake) 120 ml PO 4X/DAY [facility] Last Admin: 11/02/19 10:06 Dose: Not Given Documented by: Nystatin (Mycostatin Powder) 1 applic TOPICAL BID [facility]; Protocol Last Admin: 11/02/19 09:58 Dose: 1 applicatio Documented by: Ondansetron HCl (Zofran) 4 mg IV Q8H PRN PRN PRN Reason: NAUSEA/VOMITING Last Admin: 11/02/19 08:15 Dose: 4 mg Documented by: Sodium Chloride () 10 - 40 ml IV UD PRN PRN Reason: SALINE FLUSH Last Admin: 10/31/19 22:39 Dose: 10 ml Documented by: Warfarin Sodium (Coumadin (Pbkc)) 2 mg PO MOWEFRSA [facility] Warfarin Sodium (Jantoven) 1 mg PO SUTUTH [facility] Last Admin: 11/01/19 16:55 Dose: 1 mg Documented by: STROKE Vital Signs/Narrative: Vital Signs Temp Pulse Resp BP Pulse Ox 11/02/19 10:01 69 118/44 L 11/02/19 08:01 98.4 F 60 18 149/60 H 92 Medical Necessity - Tobacco Use Smoking Status: Former smoker Tobacco Use: Cigarettes Assessment/Plan All Active Problems Ulcer of left lower extremity with fat layer exposed (Acute) Ulcer of right lower extremity with fat layer exposed (Acute) Failure to thrive in adult (Acute) UTI (urinary tract infection) (Acute) Cellulitis of left lower extremity (Acute) Non-pressure chronic ulcer of left calf with fat layer exposed (Resolved) Generalized weakness (Acute) Bilateral lower leg cellulitis (Acute) 1. Extensive excoriation and possibly cellulitis with stage I decubitus ulcers bilaterally and bilateral lower extremity wounds/chronic venous stasis/weakness/inability to complete ADLs/morbid obesity/ZAID -We will continue with vancomycin and Zosyn for now, and obtain a wound nurse consult -PT and OT -Given her inability to complete ADLs, her progressive weakness, and the worsening wounds in her buttock and legs, will likely need placement for continued therapy and wound management given the inability to have the wound care and therapy at home per her -Continue with Coumadin, INR is 1.9 -Lactic acid on admission was 2.0, this has improved with IV fluids to 1.1 -Creatinine is down to 1.03 from 1.24 on admission 2. Chronic Soriano secondary to chronic incontinence with UTI -Last urine culture was in 2017 -Current UA does appear consistent with a UTI, should be covered with antibiotics used for her cellulitis though will adjust based on sensitivity data 3. HTN/HLD/morbid obesity/PUJA -We will hold her Lasix secondary to giving her IV fluids given her creatinine being 1.24 on admission -Continue with her home blood pressure medications -She was having some desaturations in the ER on admission while sleeping and was placed on oxygen. She generally does not need oxygen at home at rest. We will continue to monitor DVT: Coumadin Inpatient E&M: 76383 Subs Hosp L2
--- NOTE | 2019-11-02 12:12 | NURSING ---
wound photo: right lower leg
--- NOTE | 2019-11-02 12:13 | NURSING ---
skin photo: left lower leg
--- NOTE | 2019-11-02 12:14 | NURSING ---
wound photo: sacrum
[2019-11-02] MEDS: Insulin Lispro 100 UNIT/ML INSULN.PEN SC ×2 (12:20→21:24)
[2019-11-02] MEDS: 0.9% Saline Lock 10 ML Syringe IV (12:20)
[2019-11-02] MEDS: Glucerna Shake 120 ML LIQUID PO (14:41)
[2019-11-02 14:54] VITALS: BP 151/49; PULSE 62; RESP 18; TEMP 36.6; O2SAT 92
--- NOTE | 2019-11-02 14:58 | NURSING ---
pt says she has talked with x 2 today
--- NOTE | 2019-11-02 15:14 | CASEMGMT ---
SPRING CM in to discuss SNF choices: 1st choice is [facility], [facility]nd [facility], 3rd [facility]. RN CM updated SW Cheyanne Dean.
--- NOTE | 2019-11-02 16:32 | CASEMGMT ---
Social Work Note SW updated by RN CM that pt's choices for SNF are 1. [facility] 2. [facility] or 3. [facility]. SW placed a call to Marilu at [facility] and left message regarding referral. SW faxed referral. Plan: SNF pending acceptance Vaishnavi Dean S3B MULTI SENSOR OPERATOR, BOILER MAKER
[2019-11-02 21:35] VITALS: BP 137/64; PULSE 62; RESP 18; TEMP 36.8; O2SAT 96
[2019-11-03] MEDS: 0.9% Normal Saline 1,000 ML 100 ML IV (00:02)
[2019-11-03 00:22] LABS: Vancomycin, Trough Level 21.3 ug/mL (5.0-15.0)
[2019-11-03 02:02] VITALS: BP 143/50; PULSE 59; RESP 18; TEMP 37.1; O2SAT 94
--- NOTE | 2019-11-03 06:22 | PHA.PHARE_ITS ---
Consult Pharmacy has been consulted to manage selected antiobiotic: Vancomycin Type of Consult: Follow-up Labs: Sodium 142 mmol/L (136-145) 11/02/19 05:25 Potassium 4.0 mmol/L (3.5-5.1) 11/02/19 05:25 Chloride 110 mmol/L (98-107) H 11/02/19 05:25 Carbon Dioxide 27.0 mmol/L (21.0-32.0) 11/02/19 05:25 Anion Gap 5 (5-15) 11/02/19 05:25 BUN 24 mg/dL (7-18) H 11/02/19 05:25 Creatinine 1.03 mg/dL (0.55-1.02) H 11/02/19 05:25 Est GFR (MDRD) Af Amer 68 mL/min (>60) 11/02/19 05:25 Est GFR (MDRD) Non-Af 56 mL/min (>60) L 11/02/19 05:25 BUN/Creatinine Ratio 23.3 RATIO (10-20) H 11/02/19 05:25 Glucose 165 mg/dL (74-106) H 11/02/19 05:25 Vancomycin Trough 21.3 ug/mL (5.0-15.0) H 11/02/19 23:40 Microbiology: Microbiology 10/31/19 10:35 Blood Culture (Wb) - Anticubital Left Blood Culture - Preliminary No growth in 48 hours. 10/31/19 09:35 Blood Culture (Wb) - Anticubital Right Blood Culture - Preliminary No growth in 48 hours. 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 TROUGH 21.3 HOLD NEXT DOSE AND DRAW RANDOM LEVEL 11/02 @ 0 Follow-Up Labs: Trough Vancomycin Labs to be done on [date and time ordered]: 11/02 @ 5693
[2019-11-03] MEDS: Acetaminophen 325 MG Tablet 650 MG PO (06:36)
[2019-11-03 06:56] LABS: International Normalized Ratio 2.1
[2019-11-03 08:03] VITALS: BP 153/55; PULSE 63; RESP 18; TEMP 36.9; O2SAT 93
[2019-11-03] MEDS: Juven (unflavored) Packet 1 PACKET PO (08:07)
[2019-11-03 10:00] VITALS: BP 153/55; PULSE 63
[2019-11-03] MEDS: Mesalamine 1.2 GM Tablet 2.4 GM PO (10:00)
[2019-11-03] MEDS: Metoprolol(XL)Succ 25 MG Tablet PO (10:00)
[2019-11-03] MEDS: Losartan Potassium 25 MG Tablet PO (10:00)
[2019-11-03] MEDS: FLUoxetine 20 MG Capsule PO (10:01)
[2019-11-03] MEDS: Menthol/Lanolin/Calamine/Znox 113 GM Tube 1 APPLIC TOPICAL (10:01)
[2019-11-03] MEDS: Nystatin Powder 15gm Bottle 1 APPLIC TOPICAL (10:04)
[2019-11-03] MEDS: Cyanocobalamin 500 MCG Tablet 1000 MCG PO (10:05)
--- NOTE | 2019-11-03 10:45 | CASEMGMT ---
Social Work Note SW updated that pt and pt's Luc is at [facility] and requesting to speak to SW regarding SNF. Pt states first choice is [facility]CU. SW placed a call to Di in TCU. Di states she has a bed available and is able to accept pt today. RN EMILY King updated pt's spouse Luc who was getting ready to leave the floor to get food. SW in to speak with pt. SW introduced self and role at [facility]. Pt is alert and orientated x3. KAREEM updated pt that TCU does have a bed available and can accept pt today. Pt states understanding, agreeable to TCU. Pt will need COVID test result before being able to admit to TCU. Plan: TCU today Vaishnavi Dean SENIOR FIRMWARE ENGINEER, ENGINE WIPER
--- NOTE | 2019-11-03 11:29 | NURSING ---
Dr Luke called in reference to covid test. pt to be discharged once covid testing has resulting, MD asking this RN to see when results will be available. spoke with Ade in [facility] who states test was sent to [facility] on Saturday (delayed due to collected after [facility] pickup on Saturday/no pickup on Saturday). relayed info to . requested in house testing to be performed. will DC after negative test results.
[2019-11-03] MEDS: Insulin Lispro 100 UNIT/ML INSULN.PEN SC (11:53)
[2019-11-03 12:30] VITALS: O2SAT 97
--- NOTE | 2019-11-03 14:32 | TREXTCAR_ITS ---
- Diet 10/31/19 15:36 Diet: Cardiac: Calorie-Controlled Food consistency:: Regular Liquid Consistency:: Regular/Thin How many daily calories?: 1600 calorie - Routine Orders/Code Status Routine Lab Work: INR Code Status: DNC-A - Wound(s) GENITALS/BUTTOCKS Wound Type: incontinence associated dermatitis Rt [place] Wound Type: Skin Tear Dressing Change: Adaptic - Therapies Physical Therapy: Eval and Treat Occupational Therapy: Eval and Treat - Allergies/Procedures Done in Hospital Allergies/Adverse Reactions: Allergies omeprazole magnesium [From Prilosec] Allergy (Verified 10/31/19 09:27) Rash rofecoxib [From Vioxx] Allergy (Verified 10/31/19 09:27) Swelling sulfamethoxazole [From Bactrim] Allergy (Verified 10/31/19 09:27) Other BURNING AROUND MOUTH trimethoprim [From Bactrim] Allergy (Verified 10/31/19 09:27) Other BURNING AROUND MOUTH aspirin Adverse Reaction (Verified 10/31/19 14:19) Other sensitive b/c of colitis omeprazole [From Prilosec] Adverse Reaction (Verified 10/31/19 09:27) Nausea omonopril Allergy (Uncoded 10/31/19 09:27) Other COUGH SEASONAL ALLERGIES Allergy (Uncoded 10/31/19 09:27) PT UNSURE OF REACTION - Type of Care/Length of Stay Estimated LOS: Convalescent Care Less Than 30 days Type of Care Needed: Skilled Rehab Potential: Good Prognosis: Good - Additional Orders/Day of Discharge Day of Discharge: 11/03/19 - Dietary and Speech Recommendations Dietitian Recommendations/Changes: Will add cardiac diet restriction to current 1600 calorie diet order. Will add Adam 1 packet PO BID for wound healing. Consult MANAGER STERILE PROCESSING as needed if chewing/swallowing issues arise. - Follow Up Care Primary Care Physician: Nasreen Jarrett MD [Primary Care Provider] - Please follow up with your Primary Care Physician in: 1-2 weeks
[2019-11-03 14:33] VITALS: BP 145/54; PULSE 55; RESP 20; TEMP 36.7; O2SAT 97
--- NOTE | 2019-11-03 15:46 | NURSING ---
report called to [facility]cu
--- NOTE | 2019-11-03 15:59 | CASEMGMT ---
SPRING DIAZ received signed medlist for patient to discharge to TCU. SPRING DIAZ called Di at TCU and they are ready to take patient. SPRING DIAZ updated floor nurse. Patient to discharge to TCU.
--- NOTE | 2019-11-03 17:08 | DS.PCM_ITS ---
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) Edema of both legs (Chronic) Diabetes mellitus, type II (Chronic) Hypertension (Chronic) Hyperlipidemia (Chronic) Morbid obesity (Chronic) Chronic Venous Stasis (Chronic) PVD (peripheral vascular disease) (Chronic) Overflow stress urinary incontinence in female (Chronic) COPD (chronic obstructive pulmonary disease) (Chronic) Chronic respiratory failure (Chronic) Cellulitis (Chronic) Chronic acquired lymphedema (Chronic) Hospital Course and Treatment Imaging Results: None Consultations 10/31/19 14:05 Consult: Onc/Wound/veterinary virologist Routine Comment: Reason for Consult:: Wounds Operations: None Procedures: None Summary of Care Provided: Per HPI: The patient is a 74 year old F with a PMH as below who presents from home with worsening weakness, and increasing pain in her buttocks over the last several days. She is seen at the wound care clinic for chronic decubitus ulcers as well as developing bilateral lower extremity ulcers. She states that the ulcers have been getting worse and the pain is been getting worse and she is unable to complete her activities of daily living. She is unable to lay flat in the bed because she is unable to get up on her own and her cannot lift her. Initially on admission her lactic acid is 2.0 which did improve to 1.1. She was started on vancomycin in the ER as well as Zosyn she does have a chronic Soriano for chronic incontinence and her leukocyte esterase is 500 and her urine nitrites are positive with positive urine white blood cells as well as 2+ urine bacteria. We will send for urine culture as well as blood cultures. She denies any fever at home and states that she was just treated for a UTI in early September. She states that she seems to have been getting worse from a wound standpoint over the last week or so since her previous appointment. Also she might have an acute kidney injury, however her most recent creatinine turn from 2017. So we will start her on fluids and trend. Hospital Course: 1. Extensive excoriation and possibly cellulitis was bilaterally and bilateral extremity pain/chronic venous stasis/weakness/inability to complete ADLs/morbid obesity/ZAID/UTI secondary to Enterobacter and [id number]-old female presenting from home with increasing weakness and increasing pain in her buttocks. She was found to have extensive excoriations and wound care was consulted for treatment. She was also found to have a UTI and was started initially on vancomycin and Zosyn for the wound, and transition to Cipro on discharge based on susceptibility patterns on the urine culture. She is doing much better on the day of discharge, she was given some IV fluids to help and did become a little bit short of breath therefore these were discontinued and she was restarted on her oral Lasix at discharge. INR was stable at 1.9-2.1. She will need close monitoring as an outpatient secondary to the fact that she is on Cipro. She will follow-up with her PCP on discharge from the long term facility. She also have to have Soriano care she is on chronic Soriano secondary to significant incontinence. The Soriano was changed during this admission. Discharge plan was discussed with the patient and she expressed understanding to the risks and benefits of being transferred to long term facility at this time. 2. Her other medical diagnoses were evaluated and her home medications were continued where appropriate. - Physical Exam Vitals/I&O's: Vital Signs Temp Pulse Resp BP Pulse Ox 98.0 F 55 L 20 H 145/54 H 97 11/03/19 14:33 11/03/19 14:33 11/03/19 14:33 11/03/19 14:33 11/03/19 14:33 Oxygen Flow Rate (L/min) 1 Oxygen Delivery Method Nasal Cannula Weight: 254 lb 6.615 oz Body Mass Index (BMI) 41.0 Intake and Output for Last 24 Hours 11/01/19 11/02/19 11/03/19 23:59 23:59 23:59 Intake Total 3368.42 / 3668.42 4053.00 / 4053.00 2764.71 / 2764.71 Output Total 1200 / 1900 1999 / 1999 2099 / 2099 Balance 2168.42 / 1768.42 2053.00 / 2053.00 664.71 / 664.71 General: Alert, Oriented x3, Cooperative, No apparent distress HEENT: Atraumatic, PERRLA, EOMI, Normocephalic Oral: Dry Mucosa Neck: Supple, No JVD Lungs: Clear to auscultation, Normal air movement, No rhonchi, No wheeze, No rales, Diminished Cardiovascular: Regular rate, Regular Rhythm, Normal S1, Normal S2, No murmurs Abdomen: Soft, Non Tender, Non-Distended, No Hepato-splenomegaly Extremities: No edema, Capillary Refill Less than 3 Seconds Skin: Excoriated - Extensive excoriations and redness in bilateral buttocks. Extending anteriorly to both thighs and the perineum. She also has bilateral lower extremity wounds that are currently wrapped Neurological: Neuro grossly intact, Sensory exam intact to light touch and pain Psych/Mental Status: Normal Affect, Appropriate Microbiology Past 72 Hours 10/31/19 10:35 Urine Catheter - Soriano Urine Culture - Final Enterobacter cloacae complex Proteus mirabilis 10/31/19 10:35 Blood Culture (Wb) - Anticubital Left Blood Culture - Preliminary No growth in 48 hours. 10/31/19 09:35 Blood Culture (Wb) - Anticubital Right Blood Culture - Preliminary No growth in 48 hours. Laboratory Results 11/02/19 23:40: Vancomycin Trough 21.3 H 11/03/19 06:10: PT 23.0 H, INR 2.1 11/03/19 12:25: COVID-19 (JORI) Not Detected Home Medications: Medications to take at Discharge Cyanocobalamin (Vitamin B-12) [Vitamin B-12] 1,000 mcg PO DAILY 10/31/19 Fluoxetine [Prozac] 20 mg PO DAILY 10/31/19 Furosemide 2 tab PO BID 10/31/19 Iron,Carbonyl [Iron Chews] 10 mg PO DAILY 10/31/19 Loperamide [Imodium] 2 mg PO DAILY 10/31/19 Losartan Potassium [Cozaar] 25 mg PO DAILY 10/31/19 Magnesium Oxide [Magnesium] 1,000 mg PO DAILY 10/31/19 Mesalamine [Lialda] 2 tab PO DAILY 10/31/19 Metoprolol Succinate 25 mg PO DAILY 10/31/19 Multivitamins,Therapeutic [Multivitamin] 1 tab PO DAILY 10/31/19 Warfarin Sodium [Coumadin] 1 mg PO SUTUTH 10/31/19 Warfarin [Coumadin] 2 mg PO MOWEFRSA 10/31/19 Ciprofloxacin [Cipro] 500 mg PO BID 11/03/19 Primary Care Physician: Nasreen Jarrett MD [Primary Care Provider] - Please follow up with your Primary Care Physician in: 1-2 weeks Disposition: Senior Living facility Minutes spent on discharge:: 35 Patient Condition:: Stable Medical Necessity - Tobacco Use Smoking Status: Former smoker Tobacco Use: Cigarettes Meaningful Use Info Meaningful Use Diagnoses (Choose all that apply): None applicable Inpatient E&M: 136[address] [facility]
== END 2019-11-03 16:05 | disposition skilled nursing facility (03) | DRG 603 ==
LOC: ED 12:00 → MS3 13:19
PROVIDERS: Admitting Provider Family Medicine; Emergency Provider Emergency Medicine; PCP Internal Medicine; Visit Provider Family Medicine
DX: L03.317 Cellulitis of buttock (principal); T83.518A Infection and inflammatory reaction due to other urinary catheter, initial encounter; L03.116 Cellulitis of left lower limb; L03.115 Cellulitis of right lower limb; L97.222 Non-pressure chronic ulcer of left calf with fat layer exposed; L97.812 Non-pressure chronic ulcer of other part of right lower leg with fat layer exposed; N39.0 Urinary tract infection, site not specified; N17.9 Acute kidney failure, unspecified; J96.10 Chronic respiratory failure, unspecified whether with hypoxia or hypercapnia; Z68.41 Body mass index [BMI] 40.0-44.9, adult; E11.622 Type 2 diabetes mellitus with other skin ulcer; L89.321 Pressure ulcer of left buttock, stage 1; L89.311 Pressure ulcer of right buttock, stage 1; R62.7 Adult failure to thrive; E11.59 Type 2 diabetes mellitus with other circulatory complications; E66.01 Morbid (severe) obesity due to excess calories; E78.5 Hyperlipidemia, unspecified; I10 Essential (primary) hypertension; I87.2 Venous insufficiency (chronic) (peripheral); I87.8 Other specified disorders of veins; J44.9 Chronic obstructive pulmonary disease, unspecified; N39.3 Stress incontinence (female) (male); G47.33 Obstructive sleep apnea (adult) (pediatric); Z66 Do not resuscitate; Z96.659 Presence of unspecified artificial knee joint; Z79.01 Long term (current) use of anticoagulants; Z85.41 Personal history of malignant neoplasm of cervix uteri; Z87.891 Personal history of nicotine dependence; Z79.899 Other long term (current) drug therapy; B96.4 Proteus (mirabilis) (morganii) as the cause of diseases classified elsewhere; B96.89 Other specified bacterial agents as the cause of diseases classified elsewhere
CPT/HCPCS: 36415; 80048; 80076; 80202; 81001; 83605; 85025; 85610; 85730; 87040; 87077; 87086; 87088; 87186; 87635; 94762; 97110; 97116; 97162; 97166; 97530; 97802; 97803; 99285; G2023; J7030; J7040; J7050; A4216; J2405; U0003

== ENCOUNTER 2019-11-03 16:24 | Inpatient (IN) | payer MEDICARE, OTHER, SELFPAY ==
[2019-10-31 14:00] VITALS: BMI 41.0
[2019-11-03 16:31] VITALS: BP 156/70; PULSE 65; RESP 18; TEMP 36.7; O2SAT 91; BMI 42.0; BMI 42.1
[2019-11-03 16:51] LABS: Bedside Glucose 162 mg/dL (70-110)
[2019-11-03] MEDS: Ciprofloxacin 500 MG Tablet PO (18:12)
[2019-11-03] MEDS: Glucerna Shake 120 ML LIQUID PO (18:12)
[2019-11-03 21:36] LABS: Bedside Glucose 146 mg/dL (70-110)
[2019-11-03 21:55] VITALS: O2SAT 91
--- NOTE | 2019-11-03 22:02 | PCM.HP.STD ---
Problem List (1) Debility Status: Acute (2) Sleep apnea Status: Chronic (3) Urinary incontinence Status: Chronic (4) Diabetes mellitus Status: Chronic (5) Body mass index (BMI) 40.0-44.9, adult Status: Chronic (6) Venous stasis dermatitis Status: Chronic (7) Lymphedema Status: Chronic (8) Bilateral lower leg cellulitis Status: Acute (9) UTI (urinary tract infection) Status: Acute (10) Ulcer of left lower extremity with fat layer exposed Status: Chronic (11) Ulcer of right lower extremity with fat layer exposed Status: Chronic (12) COPD (chronic obstructive pulmonary disease) Status: Chronic (13) Cellulitis Status: Chronic (14) Decubitus ulcer of left buttock Status: Chronic Qualifiers: (15) Decubitus ulcer of right buttock Status: Chronic Qualifiers: (16) Hyperlipidemia Status: Chronic (17) Hypertension Status: Chronic (18) PVD (peripheral vascular disease) Status: Chronic History of Present Illness Date of Admission: 11/03/19 Chief Complaint: Here for rehabilitation, strengthening, wound care, prior to discharge home with . 10/31/2019 The patient is a 74 year old Female with below past medical history presented to [facility] Emergency Department with wounds. Pressure ulcers on buttocks, perineal area x 2 months. Goes to wound center, had several rounds of antibiotics. Confined to wheelchair. Worsening weakness. Chronic indwelling harper catheter for urinary incontinence. Vancomycin, Zosyn given. WBC okay, Lactic acid 2.0, wound cultures grew Enterococcus. Urine cultures, blood cultures sent. 10/31/2019 Admit to Hospital. Vancomycin, Zosyn for cellulitis of buttocks, legs. Wound nurse consult for wounds. Hold Lasix for acute kidney injury. Nocturnal oxygen for untreated sleep apnea. 11/01/2019 PT[facility]. Vancomycin, Zosyn for cellulitis, urinary tract infection. 11/02/2019 Antibiotics changed to Cipro for urinary tract infection. 11/03/2019 Admit to TCU with debility, here for rehabilitation, strengthening, wound care, prior to discharge home with . 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) Edema of both legs (Chronic) Diabetes mellitus, type II (Chronic) Hypertension (Chronic) Hyperlipidemia (Chronic) Morbid obesity (Chronic) Chronic Venous Stasis (Chronic) PVD (peripheral vascular disease) (Chronic) Overflow stress urinary incontinence in female (Chronic) COPD (chronic obstructive pulmonary disease) (Chronic) Chronic respiratory failure (Chronic) Cellulitis (Chronic) Chronic acquired lymphedema (Chronic) Allergies omeprazole magnesium [From Prilosec] Allergy (Verified 10/31/19 09:27) Rash rofecoxib [From Vioxx] Allergy (Verified 10/31/19 09:27) Swelling sulfamethoxazole [From Bactrim] Allergy (Verified 10/31/19 09:27) Other BURNING AROUND MOUTH trimethoprim [From Bactrim] Allergy (Verified 10/31/19 09:27) Other BURNING AROUND MOUTH aspirin Adverse Reaction (Verified 10/31/19 14:19) Other sensitive b/c of colitis omeprazole [From Prilosec] Adverse Reaction (Verified 10/31/19 09:27) Nausea omonopril Allergy (Uncoded 10/31/19 09:27) Other COUGH SEASONAL ALLERGIES Allergy (Uncoded 10/31/19 09:27) PT UNSURE OF REACTION Home Medications: Ambulatory Orders Medication Instructions Recorded Cyanocobalamin (Vitamin B-12) 1,000 mcg PO DAILY 10/31/19 [Vitamin B-12] Fluoxetine [Prozac] 20 mg PO DAILY 10/31/19 Furosemide 2 tab PO BID 10/31/19 Iron,Carbonyl [Iron Chews] 10 mg PO DAILY 10/31/19 Loperamide [Imodium] 2 mg PO DAILY 10/31/19 Losartan Potassium [Cozaar] 25 mg PO DAILY 10/31/19 Magnesium Oxide [Magnesium] 1,000 mg PO DAILY 10/31/19 Mesalamine [Lialda] 2 tab PO DAILY 10/31/19 Metoprolol Succinate 25 mg PO DAILY 10/31/19 Multivitamins,Therapeutic 1 tab PO DAILY 10/31/19 [Multivitamin] Warfarin Sodium [Coumadin] 1 mg PO SUTUTH 10/31/19 Warfarin [Coumadin] 2 mg PO MOWEFRSA 10/31/19 Ciprofloxacin [Cipro] 500 mg PO BID 11/03/19 Surgical History: cataract, cholecystectomy, total knee arthroplasty, - - L carpal tunnel surgery, IVC Filter Psychiatric History: Anxiety [employer] History: cervical cancer - Unclear, per patient report early stage, 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 Lives: Spouse/ Significant Other Smoking Status: Former smoker Tobacco Use: Cigarettes Alcohol: None Drugs: None - *Family History Maternal History Items: - - Arthritis Paternal History Items: Heart Disease Review of Systems Constitutional: Denies: Chills, Fever, Weight Change HEENT: Denies: Head Aches, Sinus Congestion, Sinus Drainage Cardiovascular: Denies: Chest Pain, Palpitations Respiratory: Denies: Cough, Shortness of breath at rest, Sputum production Gastrointestinal: Denies: Abdominal Pain, Nausea, Vomiting Genitourinary: Denies: Dysuria Musculoskeletal: Denies: Joint Pain, Joint Tenderness Skin: Denies: Rash, Wounds Neurological: Denies: Numbness, Tingling, Focal weakness Psychiatric: Denies: Anxiety, Depression, Homicidal Ideations, Suicidal Ideations Hematologic/ Lymphatic: Denies: Easy Bruising, Easy Bleeding VTE Information - Inpt Only VTE Present on Admission: No VTE Mechan Device Prophylaxis: Knee High JUAN Hose VTE Pharm Prophylaxis ordered?: No Reason prophylaxis not ordered:: Treatment Not Indicated Patient Problems: Active and Suspected Problems Debility (Acute) - Physical Exam Vitals/I&O's: Vital Signs Temp Pulse Resp BP Pulse Ox 98.1 F 65 18 156/70 H 91 11/03/19 16:31 11/03/19 16:31 11/03/19 16:31 11/03/19 16:31 11/03/19 21:55 Oxygen Flow Rate (L/min) 2 Oxygen Delivery Method Nasal Cannula Weight: 118.3 kg Body Mass Index (BMI) 42.0 General: Alert, Oriented x3, Cooperative HEENT: Atraumatic, PERRLA, EOMI, Normocephalic Neck: Supple, No JVD, Negative Carotid Bruits Lungs: Clear to auscultation, Normal air movement Cardiovascular: Regular rate, No murmurs Abdomen: Bowel Sounds Present, Soft, Non Tender Extremities: No edema, Capillary Refill Less than 3 Seconds Skin: Ulcer/ Wound - Buttocks, Perineal, legs, see wound nurse documentation. Musculoskeletal: No Tenderness to Palpation of Joints or Extremities Neurological: Cranial nerves II-XII grossly intact Psych/Mental Status: Normal Affect, Appropriate Laboratory Results 11/03/19 16:38: POC Glucose 162 H 11/03/19 21:20: POC Glucose 146 H Current Medications Calamine/Phenol (Calmoseptine Ointment) 1 applic TOPICAL 0600,2200 [facility]; Protocol Ciprofloxacin HCl (Cipro) 500 mg PO BID [facility] Stop: 11/08/19 18:01 Last Admin: 11/03/19 18:12 Dose: 500 mg Documented by: Cyanocobalamin (Vitamin B12) 1,000 mcg PO DAILYCM [facility] Fluoxetine HCl (Prozac) 20 mg PO DAILY [facility] Furosemide (Lasix) 40 mg PO BID CYNDI Loperamide HCl (Imodium) 2 mg PO DAILY [facility] Losartan Potassium (Cozaar) 25 mg PO DAILY [facility] Magnesium Oxide ([facility]Ox 400) [facility] Mesalamine (Lialda) 2.4 gm PO DAILY [facility] Metoprolol Succinate (Toprol Xl (Beta Mile)) 25 mg PO DAILY [facility] Multivitamins (Multivitamin) [facility] Nutritional Formula (Lactose Free) (Glucerna Shake) 120 ml PO TIDCM [facility] Last Admin: 11/03/19 18:12 Dose: 120 ml Documented by: Nystatin (Mycostatin Powder) 1 applic TOPICAL BID [facility]; Protocol Sodium Chloride () 10 - 40 ml IV UD PRN PRN Reason: SALINE FLUSH Tuberculin PPD (Tubersol, Aplisol, Ppd) 5 tu ID X1 ONE Stop: 11/04/19 10:01 Tuberculin PPD (Tubersol, Aplisol, Ppd) 5 tu ID X1 ONE Stop: 11/11/19 10:01 Warfarin Sodium (Coumadin (Pbkc)) 2 mg PO MoWeFrSa@1700 [facility] Warfarin Sodium (Jantoven) 1 mg PO SuTuTh@1700 [facility] Last Admin: 11/03/19 18:12 Dose: 1 mg Documented by: Assessment/Plan All Active Problems Failure to thrive in adult (Acute) UTI (urinary tract infection) (Acute) Debility (Acute) Cellulitis of left lower extremity (Acute) Non-pressure chronic ulcer of left calf with fat layer exposed (Resolved) Generalized weakness (Acute) Bilateral lower leg cellulitis (Acute) 74 year old female with below past medical history hospitalized for weakness secondary to complicated urinary tract infection, cellulitis of buttocks, wounds, admitted to TCU with debility, here for rehabilitation, strengthening, wound care, prior to discharge home with . Debility - PT/OT. Pain - Tylenol 1000MG Q6H PRN pain (1-10). Bowel - Loperamide 2MG daily. Adult immunization - Administer Prevnar 13, Pneumovax 23, Fluzone as appropriate. DVT prophylaxis - Not necessary, already on warfarin. Complicated urinary tract infection - Cipro 500MG twice daily thru 11/08/2019. Vitamin B12 deficiency - B12 1000MCG daily. Anxiety - Fluoxetine 20MG daily. Edema - Lasix 40MG twice daily. Nutrition - MVI daily, Glucerna Shake 120ML TID. Hypertension - Metoprolol succinate 25MG daily, Losartan 25MG daily. Hypomagnesemia - Magnesium Oxide 1000MG daily. Skin irritation - Calmoseptine twice daily. Ulcerative Colitis - Mesalamine 2.4GM daily, Loperamide 2MG daily. Tinea Corporis - Nystatin powder topical twice daily. Pulmonary Embolism - Warfarin 2mg 4days/week, 1mg 3days/week, follow INR. Wounds - Consult wound nurse.
[2019-11-03] MEDS: Menthol/Lanolin/Calamine/Znox 113 GM Tube 1 APPLIC TOPICAL (22:40)
[2019-11-04 04:47] VITALS: BP 160/60; PULSE 62; RESP 18; TEMP 36.8; O2SAT 94
[2019-11-04] MEDS: Menthol/Lanolin/Calamine/Znox 113 GM Tube 1 APPLIC TOPICAL ×2 (05:10→21:46)
[2019-11-04] MEDS: Nystatin Powder 15gm Bottle 1 APPLIC TOPICAL ×2 (05:12→17:21)
[2019-11-04 05:13] VITALS: BP 160/60; PULSE 62
[2019-11-04] MEDS: Metoprolol(XL)Succ 25 MG Tablet PO (05:13)
[2019-11-04] MEDS: Furosemide 40 MG Tablet PO ×2 (05:13→17:21)
[2019-11-04] MEDS: Mesalamine 1.2 GM Tablet 2.4 GM PO (05:14)
[2019-11-04] MEDS: Losartan Potassium 25 MG Tablet PO (05:14)
[2019-11-04] MEDS: Ciprofloxacin 500 MG Tablet PO ×2 (05:14→17:21)
[2019-11-04] MEDS: FLUoxetine 20 MG Capsule PO (05:14)
[2019-11-04] MEDS: Acetaminophen 500 MG Tablet 1000 MG PO (05:18)
[2019-11-04 06:04] LABS: Absolute Neutrophil Count 5.4 X10^3/uL (2.0-7.7); Basophil# 0.04 X10^3/uL; Basophil% 0.5 % (0-1); Eosinophil# 0.58 X10^3/uL; Eosinophils% 7.7 % (0-5); Hematocrit 32.9 % (37-47); Hemoglobin 9.7 g/dL (12.0-15.0); Mean Corp Hgb Conc 29.5 g/dL (32-36); Mean Corpuscular Hgb 29.5 pg (27.0-32.0); Mean Platelet Vol. 10.2 fl (6.2-12.0); Monocyte% 6.7 % (0-10); NRBC Flagged by Analyzer 0 % (0-5); Neutrophil # 5.44 X10^3/uL (2.7-7.7); Neutrophil % 72.6 % (47-70); Platelet Count 246 K/mm3 (150-450); RBC Distribution Width CV 14.6 % (11.6-14.6); Red Blood Count 3.29 M/mm3 (4.2-5.4); White Blood Count 7.5 K/mm3 (4.4-11.0)
[2019-11-04 06:36] LABS: Bedside Glucose 142 mg/dL (70-110)
[2019-11-04 06:36] LABS: Anion Gap 4 (5-15); BUN 15 mg/dL (7-18); BUN/Creat Ratio 18.1 RATIO (10-20); Calcium,Total 8.7 mg/dL (8.5-10.1); Chloride 109 mmol/L (98-107); Creatinine, Serum 0.83 mg/dL (0.55-1.02); EST Glomerular Filtration Rate 72 mL/min (>60); Est Glom Filt Rate - Afr Amer 87 mL/min (>60); Estimated Creatinine Clearance 56.51 ml/min; Glucose 143 mg/dL (74-106); Potassium 3.8 mmol/L (3.5-5.1); Sodium Level 139 mmol/L (136-145)
[2019-11-04] MEDS: Cyanocobalamin 500 MCG Tablet 1000 MCG PO (08:08)
[2019-11-04] MEDS: Multivitamins,Therapeutic Tablet 1 TABLET PO (08:08)
[2019-11-04] MEDS: Magnesium Oxide 400 MG Tablet 1000 MG PO (08:08)
[2019-11-04 10:00] VITALS: PULSE 52; RESP 16; O2SAT 96
[2019-11-04 10:55] LABS: Bedside Glucose 218 mg/dL (70-110)
[2019-11-04] MEDS: Tuberculin,Purif.prot.deriv. 50 TU/ML Vial 5 ML ID (11:55)
--- NOTE | 2019-11-04 13:51 | PCM.PN.RX ---
<ConnerzachEmily - Last Filed: 11/04/19 13:51> Progress Note - Pharmacy Subjective: TCU Admission Objective: Allergies omeprazole magnesium [From Prilosec] Allergy (Verified 10/31/19 09:27) Rash rofecoxib [From Vioxx] Allergy (Verified 10/31/19 09:27) Swelling sulfamethoxazole [From Bactrim] Allergy (Verified 10/31/19 09:27) Other BURNING AROUND MOUTH trimethoprim [From Bactrim] Allergy (Verified 10/31/19 09:27) Other BURNING AROUND MOUTH aspirin Adverse Reaction (Verified 10/31/19 14:19) Other sensitive b/c of colitis omeprazole [From Prilosec] Adverse Reaction (Verified 10/31/19 09:27) Nausea omonopril Allergy (Uncoded 10/31/19 09:27) Other COUGH SEASONAL ALLERGIES Allergy (Uncoded 10/31/19 09:27) PT UNSURE OF REACTION Current Medications Generic Name Dose Route Start Last Admin Trade Name Freq PRN Reason Stop Dose Admin Acetaminophen 1,000 mg 11/03/19 22:35 11/04/19 05:18 Tylenol PO 1,000 mg Q6H PRN PRN Administration Pain Score 1-10/10 Calamine/Phenol 1 applic 11/03/19 22:00 11/04/19 05:10 Calmoseptine Ointment TOPICAL 1 applicatio 0600,2200 CYNDI Administration Protocol Ciprofloxacin HCl 500 mg 11/03/19 18:00 11/04/19 05:14 Cipro PO 11/08/19 18:01 500 mg BID CYNDI Administration Cyanocobalamin 1,000 mcg 11/04/19 08:00 11/04/19 08:08 Vitamin B12 PO 1,000 mcg DAILYCM CYNDI Administration Fluoxetine HCl 20 mg 11/04/19 06:00 11/04/19 05:14 Prozac PO 20 mg DAILY CYNDI Administration Furosemide 40 mg 11/04/19 06:00 11/04/19 05:13 Lasix PO 40 mg BID CYNDI Administration Loperamide HCl 2 mg 11/04/19 06:00 11/04/19 05:13 Imodium PO Not Given DAILY CYNDI Losartan Potassium 25 mg 11/04/19 06:00 11/04/19 05:14 Cozaar PO 25 mg DAILY CYNDI Administration Magnesium Oxide 1,000 mg 11/04/19 08:00 11/04/19 08:08 Mag-Ox 400 PO 1,000 mg DAILYCM [facility] Administration Mesalamine 2.4 gm 11/04/19 06:00 11/04/19 05:14 Lialda PO 2.4 gm DAILY CYNDI Administration Metoprolol Succinate 25 mg 11/04/19 06:00 11/04/19 05:13 Toprol Xl (Beta Mile) PO 25 mg DAILY CYNDI Administration Multivitamins 1 tablet 11/04/19 08:00 11/04/19 08:08 Multivitamin PO 1 tablet DAILYCM [facility] Administration Nutritional Formula 1 packet 11/04/19 17:00 Adam - Sunflower Flavor PO BIDCM [facility] Nystatin 1 applic 11/04/19 06:00 11/04/19 05:12 Mycostatin Powder TOPICAL 1 applicatio BID [facility] Administration Protocol Polyethylene Glycol 17 gm 11/04/19 08:05 Miralax PO DAILY PRN Constipation Sodium Chloride 10 - 40 ml 11/03/19 16:47 IV UD PRN SALINE FLUSH Tuberculin PPD 5 tu 11/11/19 10:00 Tubersol, Aplisol, Ppd ID 11/11/19 10:01 X1 ONE Warfarin Sodium 2 mg 11/04/19 17:00 Coumadin (Pbkc) PO MoWeFrSa@1700 [facility] Warfarin Sodium 1 mg 11/03/19 17:00 11/03/19 18:12 Jantoven PO 1 mg SuTuTh@1700 [facility] Administration Problem List Debility (Acute) Sleep apnea (Chronic) Urinary incontinence (Chronic) Diabetes mellitus (Chronic) Body mass index (BMI) 40.0-44.9, adult (Chronic) Venous stasis dermatitis (Chronic) Lymphedema (Chronic) Vital Signs Temp Pulse Resp BP Pulse Ox 98.2 F 62 18 160/60 H 94 11/04/19 04:47 11/04/19 05:13 11/04/19 04:47 11/04/19 05:13 11/04/19 04:47 Oxygen Flow Rate (L/min) 2 Oxygen Delivery Method Room Air Weight: 118.3 kg Body Mass Index (BMI) 42.0 Sodium 139 mmol/L (136-145) 11/04/19 05:15 Potassium 3.8 mmol/L (3.5-5.1) 11/04/19 05:15 Chloride 109 mmol/L (98-107) H 11/04/19 05:15 Carbon Dioxide 26.0 mmol/L (21.0-32.0) 11/04/19 05:15 Anion Gap 4 (5-15) L 11/04/19 05:15 BUN 15 mg/dL (7-18) 11/04/19 05:15 Creatinine 0.83 mg/dL (0.55-1.02) 11/04/19 05:15 Est GFR (MDRD) Af Amer 87 mL/min (>60) 11/04/19 05:15 Est GFR (MDRD) Non-Af 72 mL/min (>60) 11/04/19 05:15 BUN/Creatinine Ratio 18.1 RATIO (10-20) 11/04/19 05:15 Glucose 143 mg/dL (74-106) H 11/04/19 05:15 Assessment/Plan: 1. Pain: acetaminophen 1000mg PO Q6H PRN pain 1-02/19. Please continue to monitor for pain and PRN usage. 2. Complicated UTI: ciprofloxacin 500mg PO BID thru 11/08/2019. Please continue to monitor for S/S of infection and diarrhea. 3. Hypertension: metoprolol succinate 25mg PO daily and losartan 25mg PO daily. Please continue to monitor BP (last 160/60), HR (last 62) and renal function. 4. Edema: furosemide 40mg PO BID. Please continue to monitor electrolytes, renal function and edema. 5. Ulcerative colitis: mesalamine 2.4gm PO daily and loperamide 2mg PO daily. Please continue to monitor for diarrhea, headache, and GI symptoms. 6. Pulmonary embolism: warfarin 1mg PO daily SuTuTh and 2mg PO daily MoWeFrSa. Please continue to monitor for S/S of bleeding, INR and hemoglobin. *7. Nutrition/Vitamin B12 deficiency/hypomagnesemia: multivitamin 1T PO DAILYCM, cyanocobalamin 1000mcg PO DAILYCM, magnesium oxide 1000mg PO DAILYCM. Last vitamin B12 level is from 10/2013 and last magnesium level is from 05/2016. Please consider ordering both levels now and then annually as clinically appropriate. Thanks. Psychotropic Medications: *1. Anxiety: fluoxetine 20mg PO daily. Please consider GDR by 04/2020 if clinically appropriate. Unnecessary Medications: None Bowel Regimen: Miralax 17gm PO daily PRN constipation and loperamide 2mg PO daily. Please continue to monitor for constipation and diarrhea. Date of Note:: 11/04/19 - Provider Comments Provider responsibility: Provider responsible to enter orders to implement recommendations <Binu Dugan Chi - Last Filed: 11/04/19 17:17> Progress Note - Pharmacy Subjective: [] Objective: Allergies omeprazole magnesium [From Prilosec] Allergy (Verified 10/31/19 09:27) Rash rofecoxib [From Vioxx] Allergy (Verified 10/31/19 09:27) Swelling sulfamethoxazole [From Bactrim] Allergy (Verified 10/31/19 09:27) Other BURNING AROUND MOUTH trimethoprim [From Bactrim] Allergy (Verified 10/31/19 09:27) Other BURNING AROUND MOUTH aspirin Adverse Reaction (Verified 10/31/19 14:19) Other sensitive b/c of colitis omeprazole [From Prilosec] Adverse Reaction (Verified 10/31/19 09:27) Nausea omonopril Allergy (Uncoded 10/31/19 09:27) Other COUGH SEASONAL ALLERGIES Allergy (Uncoded 10/31/19 09:27) PT UNSURE OF REACTION Current Medications Generic Name Dose Route Start Last Admin Trade Name Freq PRN Reason Stop Dose Admin Acetaminophen 1,000 mg 11/03/19 22:35 11/04/19 05:18 Tylenol PO 1,000 mg Q6H PRN PRN Administration Pain Score 1-10/10 Calamine/Phenol 1 applic 11/03/19 22:00 11/04/19 05:10 Calmoseptine Ointment TOPICAL 1 applicatio 0600,2200 CYNDI Administration Protocol Ciprofloxacin HCl 500 mg 11/03/19 18:00 11/04/19 05:14 Cipro PO 11/08/19 18:01 500 mg BID CYNDI Administration Cyanocobalamin 1,000 mcg 11/04/19 08:00 11/04/19 08:08 Vitamin B12 PO 1,000 mcg DAILYCM CYNDI Administration Fluoxetine HCl 20 mg 11/04/19 06:00 11/04/19 05:14 Prozac PO 20 mg DAILY CYNDI Administration Furosemide 40 mg 11/04/19 06:00 11/04/19 05:13 Lasix PO 40 mg BID CYNDI Administration Loperamide HCl 2 mg 11/04/19 06:00 11/04/19 05:13 Imodium PO Not Given DAILY [facility] Losartan Potassium 25 mg 11/04/19 06:00 11/04/19 05:14 Cozaar PO 25 mg DAILY [facility] Administration Magnesium Oxide 1,000 mg 11/04/19 08:00 11/04/19 08:08 Mag-Ox 400 PO 1,000 mg DAILYCM [facility] Administration Mesalamine 2.4 gm 11/04/19 06:00 11/04/19 05:14 Lialda PO 2.4 gm DAILY [facility] Administration Metoprolol Succinate 25 mg 11/04/19 06:00 11/04/19 05:13 Toprol Xl (Beta Mile) PO 25 mg DAILY [facility] Administration Multivitamins 1 tablet 11/04/19 08:00 11/04/19 08:08 Multivitamin PO 1 tablet DAILYCM [facility] Administration Nutritional Formula 1 packet 11/04/19 17:00 Adam - Sunflower Flavor PO BIDCM [facility] Nystatin 1 applic 11/04/19 06:00 11/04/19 05:12 Mycostatin Powder TOPICAL 1 applicatio BID [facility] Administration Protocol Polyethylene Glycol 17 gm 11/04/19 08:05 Miralax PO DAILY PRN Constipation Sodium Chloride 10 - 40 ml 11/03/19 16:47 IV UD PRN SALINE FLUSH Tuberculin PPD 5 tu 11/11/19 10:00 Tubersol, Aplisol, Ppd ID 11/11/19 10:01 X1 ONE Warfarin Sodium 2 mg 11/04/19 17:00 Coumadin (Pbkc) PO MoWeFrSa@1700 [facility] Warfarin Sodium 1 mg 11/03/19 17:00 11/03/19 18:12 Jantoven PO 1 mg SuTuTh@1700 [facility] Administration Problem List Debility (Acute) Sleep apnea (Chronic) Urinary incontinence (Chronic) Diabetes mellitus (Chronic) Body mass index (BMI) 40.0-44.9, adult (Chronic) Venous stasis dermatitis (Chronic) Lymphedema (Chronic) Vital Signs Temp Pulse Resp BP Pulse Ox 97.5 F L 62 18 146/76 H 96 11/04/19 14:20 11/04/19 14:20 11/04/19 14:20 11/04/19 14:20 11/04/19 14:20 Oxygen Flow Rate (L/min) 2 Oxygen Delivery Method Room Air Weight: 118.3 kg Body Mass Index (BMI) 42.0 Sodium 139 mmol/L (136-145) 11/04/19 05:15 Potassium 3.8 mmol/L (3.5-5.1) 11/04/19 05:15 Chloride 109 mmol/L (98-107) H 11/04/19 05:15 Carbon Dioxide 26.0 mmol/L (21.0-32.0) 11/04/19 05:15 Anion Gap 4 (5-15) L 11/04/19 05:15 BUN 15 mg/dL (7-18) 11/04/19 05:15 Creatinine 0.83 mg/dL (0.55-1.02) 11/04/19 05:15 Est GFR (MDRD) Af Amer 87 mL/min (>60) 11/04/19 05:15 Est GFR (MDRD) Non-Af 72 mL/min (>60) 11/04/19 05:15 BUN/Creatinine Ratio 18.1 RATIO (10-20) 11/04/19 05:15 Glucose 143 mg/dL (74-106) H 11/04/19 05:15 Assessment/Plan: Psychotropic Medications: Unnecessary Medications: Bowel Regimen: - Provider Comments Provider responsibility: Provider responsible to enter orders to implement recommendations Provider Comments to Recommendations by Pharmacy: Agree
[2019-11-04 14:20] VITALS: BP 146/76; PULSE 62; RESP 18; TEMP 36.4; O2SAT 96
--- NOTE | 2019-11-04 15:46 | NURSING ---
Patient spoke with spouse multiple times today and stated she does not need staff to call him with an update.
--- NOTE | 2019-11-04 15:49 | NURSING ---
Spoke with pt and she denied wanting to be a privacy patient. Registration notified.
[2019-11-04 16:26] LABS: Bedside Glucose 187 mg/dL (70-110)
[2019-11-04] MEDS: 0.9% Saline Lock 10 ML Syringe IV (18:35)
[2019-11-04 21:40] LABS: Bedside Glucose 170 mg/dL (70-110)
--- NOTE | 2019-11-04 21:58 | NURSING ---
PT CHECKED BLOOD SUGAR USING PERSONAL CONT GLUCOSE MONITOR WITH RESULTS OF 167.
[2019-11-05] MEDS: Losartan Potassium 25 MG Tablet PO (06:14)
[2019-11-05] MEDS: Furosemide 40 MG Tablet PO ×2 (06:14→16:30)
[2019-11-05 06:15] VITALS: BP 143/67; PULSE 69
[2019-11-05] MEDS: Metoprolol(XL)Succ 25 MG Tablet PO (06:15)
[2019-11-05] MEDS: Ciprofloxacin 500 MG Tablet PO ×2 (06:15→16:29)
[2019-11-05] MEDS: Loperamide 2 MG Capsule PO (06:15)
[2019-11-05] MEDS: FLUoxetine 20 MG Capsule PO (06:18)
[2019-11-05] MEDS: Mesalamine 1.2 GM Tablet 2.4 GM PO (06:18)
[2019-11-05] MEDS: Menthol/Lanolin/Calamine/Znox 113 GM Tube 1 APPLIC TOPICAL ×2 (06:18→20:27)
[2019-11-05] MEDS: Nystatin Powder 15gm Bottle 1 APPLIC TOPICAL ×2 (06:21→16:32)
--- NOTE | 2019-11-05 06:53 | NURSING ---
BLOOD SUGAR FROM PERSONAL CONTINUOUS GLUCOSE MONITOR 144 FASTING
[2019-11-05 06:56] LABS: International Normalized Ratio 2.6; Prothrombin Time (Protime)PT. 27.7 SECONDS (11.7-14.9)
[2019-11-05 07:04] VITALS: BP 143/67; PULSE 67; RESP 16; TEMP 37.1; O2SAT 93
[2019-11-05] MEDS: Multivitamins,Therapeutic Tablet 1 TABLET PO (09:14)
[2019-11-05] MEDS: Cyanocobalamin 500 MCG Tablet 1000 MCG PO (09:14)
[2019-11-05] MEDS: Magnesium Oxide 400 MG Tablet 1000 MG PO (09:15)
[2019-11-05 14:41] VITALS: BP 153/66; PULSE 54; RESP 18; TEMP 36.3; O2SAT 100
--- NOTE | 2019-11-05 21:40 | NURSING ---
Pt has own glucometer, checked at this time, blood sugar 231, pt voiced concern that she is not taking her Humalog, will notify Dr. Dugan.
[2019-11-06 05:50] VITALS: BP 162/64; PULSE 74; RESP 18; O2SAT 100
[2019-11-06] MEDS: Mesalamine 1.2 GM Tablet 2.4 GM PO (05:50)
[2019-11-06 05:51] VITALS: BP 162/64; PULSE 72
[2019-11-06] MEDS: Metoprolol(XL)Succ 25 MG Tablet PO (05:51)
[2019-11-06] MEDS: FLUoxetine 20 MG Capsule PO (05:51)
[2019-11-06] MEDS: Losartan Potassium 25 MG Tablet PO (05:51)
[2019-11-06] MEDS: Loperamide 2 MG Capsule PO (05:51)
[2019-11-06] MEDS: Ciprofloxacin 500 MG Tablet PO ×2 (05:51→17:35)
[2019-11-06] MEDS: Furosemide 40 MG Tablet PO ×2 (05:51→17:35)
[2019-11-06] MEDS: Menthol/Lanolin/Calamine/Znox 113 GM Tube 1 APPLIC TOPICAL ×2 (05:51→20:51)
[2019-11-06] MEDS: Nystatin Powder 15gm Bottle 1 APPLIC TOPICAL ×2 (05:52→17:35)
--- NOTE | 2019-11-06 06:04 | NURSING ---
pt pox 100% on 3l, o2 decreased to 2l per nc.
[2019-11-06 06:40] VITALS: TEMP 36.4
--- NOTE | 2019-11-06 07:01 | NURSING ---
am blood sugar 144
[2019-11-06] MEDS: Cyanocobalamin 500 MCG Tablet 1000 MCG PO (08:04)
[2019-11-06] MEDS: Multivitamins,Therapeutic Tablet 1 TABLET PO (08:04)
[2019-11-06] MEDS: Magnesium Oxide 400 MG Tablet 1000 MG PO (08:04)
[2019-11-06] MEDS: Insulin Lispro 100 UNIT/ML INSULN.PEN SC ×3 (08:15→17:34)
[2019-11-06 10:00] VITALS: RESP 16
--- NOTE | 2019-11-06 12:21 | NURSING ---
noon blood sugar 156 checked by pt
[2019-11-06 15:55] VITALS: BP 150/82; PULSE 71; RESP 16; TEMP 36.9; O2SAT 93
[2019-11-06 17:01] LABS: Bedside Glucose 185 mg/dL (70-110)
--- NOTE | 2019-11-07 00:13 | NURSING ---
BLOOD SUGAR VIA PT PERSONAL CONTINUOUS GLUCOSE MONITOR TO LEFT UPPER ARM WAS 177
[2019-11-07 04:00] VITALS: BP 156/62; PULSE 64; RESP 17; TEMP 36.9; O2SAT 97
[2019-11-07] MEDS: Menthol/Lanolin/Calamine/Znox 113 GM Tube 1 APPLIC TOPICAL ×2 (05:59→19:51)
[2019-11-07 06:00] VITALS: BP 156/62; PULSE 64
[2019-11-07] MEDS: Loperamide 2 MG Capsule PO (06:00)
[2019-11-07] MEDS: Mesalamine 1.2 GM Tablet 2.4 GM PO (06:00)
[2019-11-07] MEDS: Nystatin Powder 15gm Bottle 1 APPLIC TOPICAL ×2 (06:00→19:51)
[2019-11-07] MEDS: FLUoxetine 20 MG Capsule PO (06:00)
[2019-11-07] MEDS: Ciprofloxacin 500 MG Tablet PO ×2 (06:00→17:32)
[2019-11-07] MEDS: Furosemide 40 MG Tablet PO ×2 (06:00→17:32)
[2019-11-07] MEDS: Losartan Potassium 25 MG Tablet PO (06:00)
[2019-11-07] MEDS: Metoprolol(XL)Succ 25 MG Tablet PO (06:00)
--- NOTE | 2019-11-07 06:51 | NURSING ---
FASTING BLOOD SUGAR THIS AM VIA [PT PERSOnl GLUCOSE MONITOR WAS 177
--- NOTE | 2019-11-07 07:51 | NURSING ---
BLOOD SUGAR AT THIS TIME ACCORDING TO HER EXTERNAL MONITOR.
[2019-11-07] MEDS: Insulin Lispro 100 UNIT/ML INSULN.PEN SC ×3 (07:52→17:31)
[2019-11-07] MEDS: Multivitamins,Therapeutic Tablet 1 TABLET PO (07:52)
[2019-11-07] MEDS: Magnesium Oxide 400 MG Tablet 1000 MG PO (07:52)
[2019-11-07] MEDS: Cyanocobalamin 500 MCG Tablet 1000 MCG PO (07:52)
[2019-11-07 08:40] VITALS: O2SAT 95
[2019-11-07] MEDS: Acetaminophen 500 MG Tablet 1000 MG PO (09:05)
[2019-11-07 10:23] VITALS: RESP 18; O2SAT 88
[2019-11-07 10:28] VITALS: RESP 68
[2019-11-07 14:54] VITALS: BP 128/46; PULSE 67; RESP 20; TEMP 36.3; O2SAT 97
[2019-11-08 05:30] VITALS: BP 148/59; PULSE 66
[2019-11-08] MEDS: Mesalamine 1.2 GM Tablet 2.4 GM PO (05:30)
[2019-11-08] MEDS: FLUoxetine 20 MG Capsule PO (05:30)
[2019-11-08] MEDS: Metoprolol(XL)Succ 25 MG Tablet PO (05:30)
[2019-11-08] MEDS: Loperamide 2 MG Capsule PO (05:31)
[2019-11-08] MEDS: Furosemide 40 MG Tablet PO ×2 (05:31→17:16)
[2019-11-08] MEDS: Ciprofloxacin 500 MG Tablet PO ×2 (05:31→17:16)
[2019-11-08] MEDS: Nystatin Powder 15gm Bottle 1 APPLIC TOPICAL ×2 (05:31→20:22)
[2019-11-08] MEDS: Losartan Potassium 25 MG Tablet PO (05:31)
[2019-11-08] MEDS: Menthol/Lanolin/Calamine/Znox 113 GM Tube 1 APPLIC TOPICAL ×2 (05:32→20:21)
[2019-11-08 07:14] VITALS: BP 148/59; PULSE 66; RESP 18; TEMP 36.6; O2SAT 100
[2019-11-08] MEDS: Insulin Lispro 100 UNIT/ML INSULN.PEN SC ×4 (07:53→17:47)
[2019-11-08] MEDS: Magnesium Oxide 400 MG Tablet 1000 MG PO (07:53)
[2019-11-08] MEDS: Multivitamins,Therapeutic Tablet 1 TABLET PO (07:54)
[2019-11-08] MEDS: Cyanocobalamin 500 MCG Tablet 1000 MCG PO (07:54)
--- NOTE | 2019-11-08 11:53 | NURSING ---
assisted from Bed to WC x1 w/walker. pt did well. set up for lunch tray and call light in reach. Soriano cath emptied of clear yellow urine. Denies any other needs.
[2019-11-08] MEDS: Acetaminophen 500 MG Tablet 1000 MG PO (14:28)
[2019-11-08 14:47] VITALS: BP 118/61; PULSE 68; RESP 14; TEMP 37.1; O2SAT 94
[2019-11-08 21:30] LABS: Bedside Glucose 150 mg/dL (70-110)
[2019-11-09] MEDS: Acetaminophen 500 MG Tablet 1000 MG PO ×3 (04:17→21:09)
[2019-11-09 04:24] VITALS: BP 150/78; PULSE 66; RESP 18; TEMP 36.6; O2SAT 97
[2019-11-09] MEDS: Losartan Potassium 25 MG Tablet PO (05:30)
[2019-11-09] MEDS: Mesalamine 1.2 GM Tablet 2.4 GM PO (05:30)
[2019-11-09 05:31] VITALS: BP 150/78; PULSE 66
[2019-11-09] MEDS: Loperamide 2 MG Capsule PO (05:31)
[2019-11-09] MEDS: Furosemide 40 MG Tablet PO ×2 (05:31→17:22)
[2019-11-09] MEDS: Menthol/Lanolin/Calamine/Znox 113 GM Tube 1 APPLIC TOPICAL ×2 (05:31→21:06)
[2019-11-09] MEDS: FLUoxetine 20 MG Capsule PO (05:31)
[2019-11-09] MEDS: Metoprolol(XL)Succ 25 MG Tablet PO (05:31)
[2019-11-09] MEDS: Nystatin Powder 15gm Bottle 1 APPLIC TOPICAL ×2 (05:35→21:06)
--- NOTE | 2019-11-09 06:02 | NURSING ---
FASTING BLOOD SUGAR VIA P[T PERSONAL BLOOD GLUCOSE MONITOR WAS 135
[2019-11-09 06:14] LABS: International Normalized Ratio 2.8; Prothrombin Time (Protime)PT. 29.5 SECONDS (11.7-14.9)
[2019-11-09] MEDS: Cyanocobalamin 500 MCG Tablet 1000 MCG PO (07:54)
[2019-11-09] MEDS: Magnesium Oxide 400 MG Tablet 1000 MG PO (07:54)
[2019-11-09] MEDS: Insulin Lispro 100 UNIT/ML INSULN.PEN 10 UNIT SC ×3 (07:55→17:21)
[2019-11-09] MEDS: Multivitamins,Therapeutic Tablet 1 TABLET PO (07:57)
--- NOTE | 2019-11-09 10:41 | NURSING ---
Blood sugar taken and 173 on home monitor.
[2019-11-09 14:17] VITALS: BP 129/56; PULSE 71; RESP 16; TEMP 37; O2SAT 93
--- NOTE | 2019-11-09 17:19 | NURSING ---
blood sugar reads 139 on residents home monitor.
--- NOTE | 2019-11-09 22:23 | NURSING ---
blood sugar read per home monitor was 177.
[2019-11-09] MEDS: Orphenadrine 60 MG/2 ML Ampul IM (23:00)
[2019-11-10 05:12] VITALS: BP 145/67; PULSE 68; RESP 18; TEMP 36.2; O2SAT 94
[2019-11-10] MEDS: Acetaminophen 500 MG Tablet 1000 MG PO ×2 (05:33→20:13)
[2019-11-10 05:34] VITALS: BP 145/67; PULSE 68
[2019-11-10] MEDS: Furosemide 40 MG Tablet PO ×2 (05:34→17:37)
[2019-11-10] MEDS: FLUoxetine 20 MG Capsule PO (05:34)
[2019-11-10] MEDS: Losartan Potassium 25 MG Tablet PO (05:34)
[2019-11-10] MEDS: Metoprolol(XL)Succ 25 MG Tablet PO (05:34)
[2019-11-10] MEDS: Nystatin Powder 15gm Bottle 1 APPLIC TOPICAL ×2 (05:34→20:09)
[2019-11-10] MEDS: Mesalamine 1.2 GM Tablet 2.4 GM PO (05:34)
[2019-11-10] MEDS: Loperamide 2 MG Capsule PO (05:34)
[2019-11-10] MEDS: Menthol/Lanolin/Calamine/Znox 113 GM Tube 1 APPLIC TOPICAL ×2 (05:34→20:09)
--- NOTE | 2019-11-10 06:34 | NURSING ---
AM blood sugar checked on home monitor 183
[2019-11-10 07:38] VITALS: O2SAT 94
[2019-11-10] MEDS: Insulin Lispro 100 UNIT/ML INSULN.PEN 10 UNIT SC ×3 (08:20→17:36)
[2019-11-10] MEDS: Cyanocobalamin 500 MCG Tablet 1000 MCG PO (08:21)
[2019-11-10] MEDS: Multivitamins,Therapeutic Tablet 1 TABLET PO (08:21)
[2019-11-10] MEDS: Magnesium Oxide 400 MG Tablet 1000 MG PO (08:21)
--- NOTE | 2019-11-10 11:37 | NURSING ---
pt blood sugar 139 this AM at shift changed and at 1137 it is 283
[2019-11-10 14:27] VITALS: BP 136/72; PULSE 70; RESP 18; TEMP 36.7; O2SAT 91
--- NOTE | 2019-11-10 17:33 | NURSING ---
blood sugar 127
[2019-11-11 04:00] VITALS: BP 122/50; PULSE 59; RESP 18; TEMP 36.9; O2SAT 95
[2019-11-11] MEDS: Acetaminophen 500 MG Tablet 1000 MG PO (05:34)
[2019-11-11 05:41] VITALS: BP 122/50; PULSE 64
[2019-11-11] MEDS: Furosemide 40 MG Tablet PO ×2 (05:41→17:39)
[2019-11-11] MEDS: FLUoxetine 20 MG Capsule PO (05:41)
[2019-11-11] MEDS: Metoprolol(XL)Succ 25 MG Tablet PO (05:41)
[2019-11-11] MEDS: Loperamide 2 MG Capsule PO (05:41)
[2019-11-11] MEDS: Losartan Potassium 25 MG Tablet PO (05:41)
[2019-11-11] MEDS: Mesalamine 1.2 GM Tablet 2.4 GM PO (05:41)
[2019-11-11] MEDS: Menthol/Lanolin/Calamine/Znox 113 GM Tube 1 APPLIC TOPICAL ×2 (05:46→21:52)
[2019-11-11] MEDS: Nystatin Powder 15gm Bottle 1 APPLIC TOPICAL ×2 (05:47→21:53)
[2019-11-11 05:49] LABS: Absolute Neutrophil Count 5.5 X10^3/uL (2.0-7.7); Basophil# 0.04 X10^3/uL; Basophil% 0.5 % (0-1); Eosinophil# 0.53 X10^3/uL; Eosinophils% 6.4 % (0-5); Hematocrit 34.2 % (37-47); Hemoglobin 10.1 g/dL (12.0-15.0); Lymphocyte % 18.2 % (19-41); Mean Corp Hgb Conc 29.5 g/dL (32-36); Mean Corpuscular Hgb 28.9 pg (27.0-32.0); Mean Platelet Vol. 10.4 fl (6.2-12.0); Monocyte# 0.59 X10^3/uL; Monocyte% 7.1 % (0-10); NRBC Flagged by Analyzer 0 % (0-5); Neutrophil # 5.54 X10^3/uL (2.7-7.7); Neutrophil % 67.1 % (47-70); Platelet Count 293 K/mm3 (150-450); RBC Distribution Width CV 14.5 % (11.6-14.6); RBC Distribution Width SD 51.8 fl (35.1-43.9); Red Blood Count 3.49 M/mm3 (4.2-5.4); White Blood Count 8.3 K/mm3 (4.4-11.0)
[2019-11-11 06:23] LABS: Anion Gap 4 (5-15); BUN 50 mg/dL (7-18); BUN/Creat Ratio 44.2 RATIO (10-20); Calcium,Total 8.8 mg/dL (8.5-10.1); Chloride 102 mmol/L (98-107); Creatinine, Serum 1.13 mg/dL (0.55-1.02); EST Glomerular Filtration Rate 50 mL/min (>60); Est Glom Filt Rate - Afr Amer 61 mL/min (>60); Estimated Creatinine Clearance 41.51 ml/min; Glucose 178 mg/dL (74-106); Potassium 4.4 mmol/L (3.5-5.1); Sodium Level 139 mmol/L (136-145)
[2019-11-11 06:26] LABS: Bedside Glucose 194 mg/dL (70-110)
[2019-11-11 06:30] VITALS: O2SAT 95
--- NOTE | 2019-11-11 07:01 | NURSING ---
0530 patient checked blood sugar 170 this am.
[2019-11-11] MEDS: Magnesium Oxide 400 MG Tablet 1000 MG PO (07:58)
[2019-11-11] MEDS: Insulin Lispro 100 UNIT/ML INSULN.PEN 10 UNIT SC ×3 (07:58→17:37)
[2019-11-11] MEDS: Multivitamins,Therapeutic Tablet 1 TABLET PO (07:58)
[2019-11-11] MEDS: Cyanocobalamin 500 MCG Tablet 1000 MCG PO (07:58)
--- NOTE | 2019-11-11 09:20 | RAD_ITS ---
STUDY: X-RAY - CERVICAL SPINE REASON FOR EXAM: Female, 74 years old. NECK PAIN TECHNIQUE: 3 view(s) of the cervical spine were obtained. COMPARISON: None FINDINGS: There are degenerative changes of the anterior atlantoaxial articulation. Normal odontoid process. There is straightening of the normal cervical lordosis. There is multi-level endplate spondylosis. There is multi-level degenerative disc disease with multilevel disc space narrowing. Normal visualized intervertebral neuroforamina. There are atherosclerotic vascular calcifications of the carotid arteries. RAD/Cerv Spine 2 or 3 Views IMPRESSION: Loss of the normal cervical lordosis. Multilevel spondylosis and disc space narrowing. Electronically Signed: Sebas Polk, at 10:14 EDT , Service support ,
[2019-11-11 10:00] VITALS: PULSE 66; RESP 16; O2SAT 95
--- NOTE | 2019-11-11 11:16 | MDS.RN ---
During phone care plan conference, resident, spouse requesting [facility] pharmacist review current meds, email sent to [facility] pharmacist.
[2019-11-11] MEDS: Tuberculin,Purif.prot.deriv. 50 TU/ML Vial 5 ML ID (12:02)
[2019-11-11] MEDS: MethylPREDNISolone DosePak 4 MG BOX PO ×3 (12:03→21:50)
[2019-11-11] MEDS: Gabapentin 300 MG Capsule PO ×2 (12:08→17:39)
[2019-11-11] MEDS: Baclofen 10 MG Tablet PO ×2 (12:08→17:38)
--- NOTE | 2019-11-11 13:57 | CASEMGMT ---
Plan of care meeting held with pt present and Luc on conference call. Pt is participating well and progressing with PT/OT. Pt lives at home with her spouse and maintains a wheel chair level at home. She was able to ambulate 5 feet to the bathroom. Pt plans to return home with spouse at time of discharge. Pt was receiving home health PT/OT/SN/UX SPECIALIST from [facility] and would like services restarted at time of discharge. Pt has needed DME including WW, WC and hospital bed. Pt has not been using home O2 but states she has a concentrator at home form [facility]. Continued stay planned at this time for continued rehab prior to d/c home. SW will continue to follow for support and d/c planning. OVIDIO Padron
--- NOTE | 2019-11-11 14:24 | MDS.RN ---
Medications reviewed by [facility] pharmacist, OK per pharmacist, spouse, Luc updated and appreciative.
[2019-11-11 15:42] VITALS: BP 140/75; PULSE 71; RESP 20; TEMP 36.3; O2SAT 98
[2019-11-12 06:07] LABS: International Normalized Ratio 2.6; Prothrombin Time (Protime)PT. 27.8 SECONDS (11.7-14.9)
[2019-11-12 06:21] VITALS: BP 124/40; PULSE 71; RESP 16; TEMP 37.1; O2SAT 92
[2019-11-12 06:24] VITALS: BP 124/40; PULSE 71
[2019-11-12] MEDS: Metoprolol(XL)Succ 25 MG Tablet PO (06:24)
[2019-11-12] MEDS: Menthol/Lanolin/Calamine/Znox 113 GM Tube 1 APPLIC TOPICAL ×2 (06:24→21:34)
[2019-11-12] MEDS: Loperamide 2 MG Capsule PO (06:24)
[2019-11-12] MEDS: FLUoxetine 20 MG Capsule PO (06:24)
[2019-11-12] MEDS: Losartan Potassium 25 MG Tablet PO (06:24)
[2019-11-12] MEDS: Mesalamine 1.2 GM Tablet 2.4 GM PO (06:24)
[2019-11-12] MEDS: Furosemide 40 MG Tablet PO ×2 (06:25→17:09)
[2019-11-12] MEDS: Nystatin Powder 15gm Bottle 1 APPLIC TOPICAL ×2 (06:25→21:34)
--- NOTE | 2019-11-12 06:30 | NURSING ---
FASTING BLOOD SUGAR PER PT PERSONAL CONT GLUCOSE MONITOR 199
[2019-11-12 06:53] VITALS: O2SAT 96
[2019-11-12] MEDS: Insulin Lispro 100 UNIT/ML INSULN.PEN 10 UNIT SC ×3 (08:33→17:38)
[2019-11-12] MEDS: Magnesium Oxide 400 MG Tablet 1000 MG PO (08:35)
[2019-11-12] MEDS: Baclofen 10 MG Tablet PO ×3 (08:35→17:10)
[2019-11-12] MEDS: Gabapentin 300 MG Capsule PO ×3 (08:35→17:09)
[2019-11-12] MEDS: Cyanocobalamin 500 MCG Tablet 1000 MCG PO (08:36)
[2019-11-12] MEDS: Multivitamins,Therapeutic Tablet 1 TABLET PO (08:36)
[2019-11-12] MEDS: MethylPREDNISolone DosePak 4 MG BOX PO ×4 (08:36→21:34)
--- NOTE | 2019-11-12 08:37 | NURSING ---
per pt external monitor, blood sugar 210
[2019-11-12 14:00] VITALS: BP 126/58; PULSE 65; RESP 16; TEMP 36.8; O2SAT 97
--- NOTE | 2019-11-12 17:36 | NURSING ---
external monitor blood sugar read 222
[2019-11-12 19:35] VITALS: BP 126/72; PULSE 69; RESP 18; TEMP 37.4; O2SAT 97
--- NOTE | 2019-11-12 19:51 | NURSING ---
Addendum entered by Kamila Campos 11/12/19 20:11: New orders received to decrease neurontin dose to 200mg TID with both neurontin and baclofen having end dates of 11/17/19. Original Note: 1930-Pt calling out help and noted to be sitting on floor in front of wheelchair upon staffs' entrance to pt's room. Pt states she felt lightheaded and slid forward. Denies hitting head. Pt assisted to bed by 4 staff members. Skin evaluated and new abrasion noted to R side, no bleeding/drainage. Pt denies pain. Pt is alert and oriented x3. Has been a little more tired/drowsy today per report. Vital signs completed, see worklist. Pt was having neck pain yesterday which she states today is almost totally gone. Offered to notify pt's family and pt states no don't do that, I can tell them. Dr. Dugan and Tour Driver notified of pt's fall. Bed in low position and call light within reach. Bed and chair alarm applied.
--- NOTE | 2019-11-12 23:02 | NURSING ---
Blood sugar via personal glucose monitor was 258
[2019-11-13 06:08] VITALS: BP 154/64; PULSE 61; RESP 16; O2SAT 95
[2019-11-13] MEDS: Furosemide 40 MG Tablet PO ×2 (06:10→17:43)
[2019-11-13] MEDS: Loperamide 2 MG Capsule PO (06:10)
[2019-11-13] MEDS: Mesalamine 1.2 GM Tablet 2.4 GM PO (06:10)
[2019-11-13] MEDS: Losartan Potassium 25 MG Tablet PO (06:10)
[2019-11-13 06:11] VITALS: BP 154/64; PULSE 61
[2019-11-13] MEDS: Nystatin Powder 15gm Bottle 1 APPLIC TOPICAL ×2 (06:11→21:22)
[2019-11-13] MEDS: FLUoxetine 20 MG Capsule PO (06:11)
[2019-11-13] MEDS: Menthol/Lanolin/Calamine/Znox 113 GM Tube 1 APPLIC TOPICAL ×2 (06:11→21:22)
[2019-11-13] MEDS: Metoprolol(XL)Succ 25 MG Tablet PO (06:11)
--- NOTE | 2019-11-13 06:49 | NURSING ---
fasting blood sugar via pt personal glucose monitor was 227
[2019-11-13 07:00] VITALS: O2SAT 95
[2019-11-13] MEDS: Gabapentin 100 MG Capsule 200 MG PO ×3 (08:10→17:44)
[2019-11-13] MEDS: Magnesium Oxide 400 MG Tablet 1000 MG PO (08:10)
[2019-11-13] MEDS: Cyanocobalamin 500 MCG Tablet 1000 MCG PO (08:10)
[2019-11-13] MEDS: Multivitamins,Therapeutic Tablet 1 TABLET PO (08:10)
[2019-11-13] MEDS: MethylPREDNISolone DosePak 4 MG BOX PO ×4 (08:10→21:21)
[2019-11-13] MEDS: Baclofen 10 MG Tablet PO ×3 (08:10→17:43)
[2019-11-13] MEDS: Insulin Lispro 100 UNIT/ML INSULN.PEN 10 UNIT SC ×2 (08:12→11:59)
[2019-11-13 14:49] VITALS: BP 134/66; PULSE 58; RESP 18; TEMP 36.2; O2SAT 98
[2019-11-13 16:06] VITALS: PULSE 60; RESP 18; O2SAT 97
[2019-11-13] MEDS: Insulin Lispro 100 UNIT/ML INSULN.PEN 15 UNIT SC (17:45)
--- NOTE | 2019-11-13 23:10 | NURSING ---
PM blood glucose per home monitor 224
[2019-11-14 06:21] VITALS: BP 140/65; PULSE 66; RESP 18; TEMP 36.6; O2SAT 95
[2019-11-14 06:23] VITALS: BP 140/65; PULSE 66
[2019-11-14] MEDS: Mesalamine 1.2 GM Tablet 2.4 GM PO (06:23)
[2019-11-14] MEDS: Metoprolol(XL)Succ 25 MG Tablet PO (06:23)
[2019-11-14] MEDS: Loperamide 2 MG Capsule PO (06:23)
[2019-11-14] MEDS: Furosemide 40 MG Tablet PO ×2 (06:23→17:30)
[2019-11-14] MEDS: FLUoxetine 20 MG Capsule PO (06:23)
[2019-11-14] MEDS: Losartan Potassium 25 MG Tablet PO (06:23)
[2019-11-14] MEDS: Nystatin Powder 15gm Bottle 1 APPLIC TOPICAL ×2 (06:26→20:27)
[2019-11-14] MEDS: Menthol/Lanolin/Calamine/Znox 113 GM Tube 1 APPLIC TOPICAL ×2 (06:26→20:27)
--- NOTE | 2019-11-14 06:34 | NURSING ---
Fasting am blood sugar per home monitor is 177.
[2019-11-14] MEDS: Magnesium Oxide 400 MG Tablet 1000 MG PO (07:47)
[2019-11-14] MEDS: MethylPREDNISolone DosePak 4 MG BOX PO ×3 (07:47→20:26)
[2019-11-14] MEDS: Gabapentin 100 MG Capsule 200 MG PO ×3 (07:48→17:31)
[2019-11-14] MEDS: Baclofen 10 MG Tablet PO ×3 (07:48→17:31)
[2019-11-14] MEDS: Cyanocobalamin 500 MCG Tablet 1000 MCG PO (07:48)
[2019-11-14] MEDS: Insulin Lispro 100 UNIT/ML INSULN.PEN 15 UNIT SC ×3 (07:49→17:30)
[2019-11-14] MEDS: Multivitamins,Therapeutic Tablet 1 TABLET PO (07:50)
[2019-11-14 09:12] VITALS: O2SAT 95
[2019-11-14 15:51] VITALS: BP 128/74; PULSE 61; RESP 16; TEMP 36.9; O2SAT 98
--- NOTE | 2019-11-14 19:31 | NURSING ---
Notified Dr. Dugan of patient c/o shaky hands and patient's calling and stating he wants the patient to stop taking the medication, but that he wanted it to be tapered. New order received.
--- NOTE | 2019-11-14 21:25 | NURSING ---
SPOKE WITH . HE WAS WONDERING IF WE WERE ABLE TO TALK TO DR REESE AND LET HIM KNOW HE DOES NOT WANT THE PATIENT TAKING IT BECAUSE OF THE SIDE AFFECTS. INFORMED SPOUSE THAT DAYSMAFT RN DID CALL DR REESE AND LET HIM KNOW AND OBTAINED A NEW ORDER TO WEAN PT OFF GABAPENTIN STARTING TOMORROW. SPOUSE VERBALLY UNDERSTOOD AND WAS OK WITH THAT PLAN
[2019-11-14 21:36] LABS: Bedside Glucose 111 mg/dL (70-110)
[2019-11-15 05:59] VITALS: BP 153/65; PULSE 62; RESP 16; TEMP 36.7; O2SAT 96
[2019-11-15 06:07] VITALS: BP 153/65; PULSE 62
[2019-11-15] MEDS: Mesalamine 1.2 GM Tablet 2.4 GM PO (06:07)
[2019-11-15] MEDS: Metoprolol(XL)Succ 25 MG Tablet PO (06:07)
[2019-11-15] MEDS: Furosemide 40 MG Tablet PO ×2 (06:07→17:36)
[2019-11-15] MEDS: Losartan Potassium 25 MG Tablet PO (06:07)
[2019-11-15] MEDS: FLUoxetine 20 MG Capsule PO (06:07)
[2019-11-15] MEDS: Loperamide 2 MG Capsule PO (06:08)
[2019-11-15] MEDS: Menthol/Lanolin/Calamine/Znox 113 GM Tube 1 APPLIC TOPICAL ×2 (06:14→20:45)
[2019-11-15] MEDS: Nystatin Powder 15gm Bottle 1 APPLIC TOPICAL ×2 (06:14→20:45)
[2019-11-15 06:16] LABS: Bedside Glucose 182 mg/dL (70-110)
[2019-11-15 07:00] VITALS: O2SAT 96
[2019-11-15] MEDS: Insulin Lispro 100 UNIT/ML INSULN.PEN 15 UNIT SC ×3 (07:52→17:35)
[2019-11-15] MEDS: Gabapentin 100 MG Capsule PO ×3 (07:52→17:36)
[2019-11-15] MEDS: Baclofen 10 MG Tablet PO ×3 (07:52→17:36)
[2019-11-15] MEDS: MethylPREDNISolone DosePak 4 MG BOX PO ×2 (07:53→20:44)
[2019-11-15] MEDS: Magnesium Oxide 400 MG Tablet 1000 MG PO (07:54)
[2019-11-15] MEDS: Multivitamins,Therapeutic Tablet 1 TABLET PO (07:55)
[2019-11-15] MEDS: Cyanocobalamin 500 MCG Tablet 1000 MCG PO (07:56)
[2019-11-15 14:41] VITALS: BP 126/52; PULSE 66; RESP 18; TEMP 36.9; O2SAT 95
--- NOTE | 2019-11-15 22:00 | NURSING ---
Patient's blood sugar from her home unit this evening is 183.
[2019-11-15] MEDS: Acetaminophen 500 MG Tablet 1000 MG PO (23:40)
[2019-11-16] VITALS (7 sets, daily range): BP systolic 127–155; BP diastolic 61–65; PULSE 64–66; RESP 14–18; TEMP 36.1–36.7; O2SAT 92–97
[2019-11-16] MEDS: FLUoxetine 20 MG Capsule PO (05:36)
[2019-11-16] MEDS: Loperamide 2 MG Capsule PO (05:36)
[2019-11-16] MEDS: Furosemide 40 MG Tablet PO ×2 (05:36→17:36)
[2019-11-16] MEDS: Mesalamine 1.2 GM Tablet 2.4 GM PO (05:37)
[2019-11-16] MEDS: Losartan Potassium 25 MG Tablet PO (05:37)
[2019-11-16] MEDS: Metoprolol(XL)Succ 25 MG Tablet PO (05:37)
[2019-11-16] MEDS: Menthol/Lanolin/Calamine/Znox 113 GM Tube 1 APPLIC TOPICAL ×2 (05:40→20:14)
--- NOTE | 2019-11-16 05:40 | NURSING ---
Patient's blood sugar from her home unit this morning is 217.
[2019-11-16] MEDS: Nystatin Powder 15gm Bottle 1 APPLIC TOPICAL ×2 (05:41→20:14)
[2019-11-16 05:48] LABS: International Normalized Ratio 2.4; Prothrombin Time (Protime)PT. 25.7 SECONDS (11.7-14.9)
--- NOTE | 2019-11-16 07:55 | NURSING ---
Patient lower to floor by this nurse and therapy while pt was standing at sink. no injuries incurred. Transferred to bed by staff.
[2019-11-16] MEDS: Cyanocobalamin 500 MCG Tablet 1000 MCG PO (08:33)
[2019-11-16] MEDS: Magnesium Oxide 400 MG Tablet 1000 MG PO (08:33)
[2019-11-16] MEDS: Gabapentin 100 MG Capsule PO ×2 (08:34→17:36)
[2019-11-16] MEDS: Insulin Lispro 100 UNIT/ML INSULN.PEN 15 UNIT SC ×3 (08:34→17:35)
[2019-11-16] MEDS: Multivitamins,Therapeutic Tablet 1 TABLET PO (08:34)
[2019-11-16] MEDS: Acetaminophen 500 MG Tablet 1000 MG PO (08:34)
[2019-11-16] MEDS: Baclofen 10 MG Tablet PO (08:40)
--- NOTE | 2019-11-16 08:45 | NURSING ---
Spouse updated on patient current condition.
--- NOTE | 2019-11-16 09:35 | MDS.RN ---
Information for the mds was obtained from review of the clinical record, interview of resident, staff, and direct observation of resident's care.
--- NOTE | 2019-11-16 16:19 | NURSING ---
Lizette glucometer removed from L upper arm d/t expiration date. Meters are only good for 14 days. Spouse sent new product to unit and new glucometer placed on R upper arm.
[2019-11-16 17:56] LABS: Bedside Glucose 154 mg/dL (70-110)
--- NOTE | 2019-11-16 20:11 | PCA ---
OIL FIELD CASER offered HS care and patient refused stating Maricruz had a rough day and i just don't feel like getting washed up tonight. i fell earlier and im just too tired Nurse aware. OIL FIELD CASER told patient to ring if she needed anything. Water pitcher was refilled and call light in reach.
--- NOTE | 2019-11-16 20:28 | NURSING ---
C/O BLURRY VISION STATES HAS HAD BLURRY VISION SINCE YESTERDAY, STATES YOU HAVE 3 EYES. ASSESSMENT WNL. BLOOD SUGAR VIA PERSONAL GLUCOSE MONITOR AT THIS TIME 140, HAND GRASP EQUAL, C/O BEING TIRED, STATES I FELL TODAY AND IM TIRED WILL UPDATE DR REESE
[2019-11-17 05:25] VITALS: BP 128/63; PULSE 76; RESP 16; TEMP 36.3; O2SAT 95
[2019-11-17] MEDS: Menthol/Lanolin/Calamine/Znox 113 GM Tube 1 APPLIC TOPICAL ×2 (05:27→21:34)
[2019-11-17 05:28] VITALS: BP 128/63; PULSE 76
[2019-11-17] MEDS: Nystatin Powder 15gm Bottle 1 APPLIC TOPICAL ×2 (05:28→21:35)
[2019-11-17] MEDS: Loperamide 2 MG Capsule PO (05:28)
[2019-11-17] MEDS: Mesalamine 1.2 GM Tablet 2.4 GM PO (05:28)
[2019-11-17] MEDS: Metoprolol(XL)Succ 25 MG Tablet PO (05:28)
[2019-11-17] MEDS: FLUoxetine 20 MG Capsule PO (05:28)
[2019-11-17] MEDS: Furosemide 40 MG Tablet PO ×2 (05:28→17:33)
[2019-11-17] MEDS: Losartan Potassium 25 MG Tablet PO (05:33)
[2019-11-17 06:52] VITALS: O2SAT 95
[2019-11-17] MEDS: Insulin Lispro 100 UNIT/ML INSULN.PEN 15 UNIT SC ×2 (08:03→12:02)
[2019-11-17] MEDS: Magnesium Oxide 400 MG Tablet 1000 MG PO (08:05)
[2019-11-17] MEDS: Gabapentin 100 MG Capsule PO (08:06)
[2019-11-17] MEDS: Cyanocobalamin 500 MCG Tablet 1000 MCG PO (08:06)
[2019-11-17] MEDS: Multivitamins,Therapeutic Tablet 1 TABLET PO (08:06)
--- NOTE | 2019-11-17 10:03 | NURSING ---
Addendum entered by Marta Foote 11/17/19 11:06: Dr Dugan ok with stopping neurontin now will update . Addendum entered by Marta Foote 11/17/19 10:48: spoke with and would like pt off neurontin by . Blurred/double vision & drowsiness is side effect of this drug. requesting that eye appt be cancelled. updated Dr Dugan.` Original Note: appt made with Dr Marin 11/17 at 1330 for c/o blurry vision since Saturday, will attempt to set up WC transport for pt
[2019-11-17 10:22] VITALS: RESP 18; O2SAT 96
--- NOTE | 2019-11-17 12:03 | NURSING ---
blood sugar 265 via external monitor. insulin given.
--- NOTE | 2019-11-17 14:00 | NURSING ---
1320 pt c/o feeling hot, nauseated, diaphoretic, very tired. Blood sugar 206. pt had been sitting up in WC since early AM. hoyered pt back to bed and pt feeling much better now that she resting in bed.
[2019-11-17 14:13] VITALS: BP 101/61; PULSE 64; RESP 16; TEMP 36; O2SAT 96
--- NOTE | 2019-11-17 17:06 | NURSING ---
blood sugar 96, resting in bed watching TV. denies needs or c/o. call light in reach.
[2019-11-18 04:00] VITALS: BP 108/54; PULSE 63; RESP 16; TEMP 36.2; O2SAT 98
[2019-11-18 05:47] LABS: Absolute Lymphocyte Count 2.72 X10^3/uL (0.83-4.51); Absolute Neutrophil Count 8.8 X10^3/uL (2.0-7.7); Basophil# 0.04 X10^3/uL; Basophil% 0.3 % (0-1); Eosinophil# 0.98 X10^3/uL; Eosinophils% 7.2 % (0-5); Hematocrit 40.6 % (37-47); Hemoglobin 11.9 g/dL (12.0-15.0); Lymphocyte # 2.72 X10^3/ul (4.0); Lymphocyte % 20.1 % (19-41); Mean Corp Hgb Conc 29.3 g/dL (32-36); Mean Corpuscular Volume 98.8 fL (81-99); Mean Platelet Vol. 10.7 fl (6.2-12.0); Monocyte# 0.92 X10^3/uL; Monocyte% 6.8 % (0-10); NRBC Flagged by Analyzer 0 % (0-5); Neutrophil # 8.81 X10^3/uL (2.7-7.7); Neutrophil % 65.1 % (47-70); Platelet Count 308 K/mm3 (150-450); RBC Distribution Width CV 14.4 % (11.6-14.6); RBC Distribution Width SD 51.3 fl (35.1-43.9); Red Blood Count 4.11 M/mm3 (4.2-5.4); White Blood Count 13.5 K/mm3 (4.4-11.0)
[2019-11-18] MEDS: Furosemide 40 MG Tablet PO (06:01)
[2019-11-18] MEDS: Loperamide 2 MG Capsule PO (06:01)
[2019-11-18] MEDS: Mesalamine 1.2 GM Tablet 2.4 GM PO (06:01)
[2019-11-18] MEDS: Losartan Potassium 25 MG Tablet PO (06:01)
[2019-11-18 06:02] VITALS: BP 95/61; PULSE 72
[2019-11-18] MEDS: Metoprolol(XL)Succ 25 MG Tablet PO (06:02)
[2019-11-18] MEDS: Nystatin Powder 15gm Bottle 1 APPLIC TOPICAL ×2 (06:06→20:46)
[2019-11-18] MEDS: Menthol/Lanolin/Calamine/Znox 113 GM Tube 1 APPLIC TOPICAL ×2 (06:06→20:46)
[2019-11-18] MEDS: FLUoxetine 20 MG Capsule PO (06:06)
[2019-11-18 06:28] LABS: Anion Gap 5 (5-15); BUN 104 mg/dL (7-18); BUN/Creat Ratio 70.7 RATIO (10-20); Chloride 102 mmol/L (98-107); Creatinine, Serum 1.47 mg/dL (0.55-1.02); EST Glomerular Filtration Rate 37 mL/min (>60); Est Glom Filt Rate - Afr Amer 45 mL/min (>60); Estimated Creatinine Clearance 31.91 ml/min; Glucose 167 mg/dL (74-106); Sodium Level 141 mmol/L (136-145)
--- NOTE | 2019-11-18 07:10 | NURSING ---
Dr Dugan updated on elevated BUN/cr. New orders to DC lasix, start IVF.
--- NOTE | 2019-11-18 07:41 | NURSING ---
Attempted to start iv x2, unsuccessful, SPRING Lozano in to try.
[2019-11-18] MEDS: Magnesium Oxide 400 MG Tablet 1000 MG PO (08:05)
[2019-11-18] MEDS: Multivitamins,Therapeutic Tablet 1 TABLET PO (08:05)
[2019-11-18] MEDS: Insulin Lispro 100 UNIT/ML INSULN.PEN 15 UNIT SC ×2 (08:05→11:18)
[2019-11-18] MEDS: Cyanocobalamin 500 MCG Tablet 1000 MCG PO (08:05)
[2019-11-18] MEDS: 0.9% Normal Saline 1,000 ML 999 ML IV (08:26)
[2019-11-18] MEDS: Ciprofloxacin 0.3% 2.5ml Bottle 2 DRP EACH EYE ×4 (09:03→20:46)
[2019-11-18 09:25] VITALS: O2SAT 100
[2019-11-18] MEDS: Dext 5%-0.45% NS 1,000 ML 60 ML IV (09:31)
[2019-11-18 16:00] VITALS: BP 108/54; PULSE 63; RESP 16; TEMP 36.2; O2SAT 98
--- NOTE | 2019-11-18 17:50 | NURSING ---
delivering pt tray to room and noted edema to LT FA at IV site. D5.45 NS stopped immediately, removed saline lock. warm compress applied. DR Dugan updated, new order to DC IVF. hold jorge luis rollins for BS 112. pt sitting up in bed eating supper. Pt denies burning, pain, ect. pleasant and cooperative. LT arm elevated on pillow.
--- NOTE | 2019-11-18 22:49 | NURSING ---
BLOOD SUGAR VIA PERSONAL DEVICE 177
[2019-11-18] MEDS: Acetaminophen 500 MG Tablet 1000 MG PO (23:16)
[2019-11-19] MEDS: Ciprofloxacin 0.3% 2.5ml Bottle 2 DRP EACH EYE ×5 (01:51→22:29)
[2019-11-19 05:46] LABS: Absolute Lymphocyte Count 1.81 X10^3/uL (0.83-4.51); Basophil# 0.04 X10^3/uL; Basophil% 0.3 % (0-1); Eosinophil# 0.75 X10^3/uL; Eosinophils% 5.5 % (0-5); Hematocrit 38.8 % (37-47); Hemoglobin 11.5 g/dL (12.0-15.0); Lymphocyte # 1.81 X10^3/ul (4.0); Lymphocyte % 13.2 % (19-41); Mean Corp Hgb Conc 29.6 g/dL (32-36); Mean Corpuscular Volume 97.7 fL (81-99); Monocyte# 1.01 X10^3/uL; Monocyte% 7.4 % (0-10); NRBC Flagged by Analyzer 0 % (0-5); Neutrophil # 9.99 X10^3/uL (2.7-7.7); Neutrophil % 72.8 % (47-70); Platelet Count 310 K/mm3 (150-450); RBC Distribution Width SD 50.2 fl (35.1-43.9); Red Blood Count 3.97 M/mm3 (4.2-5.4); White Blood Count 13.7 K/mm3 (4.4-11.0)
[2019-11-19 05:50] VITALS: BP 119/64; PULSE 79; RESP 15; TEMP 36.8; O2SAT 99
[2019-11-19 05:52] VITALS: BP 119/64; PULSE 79
[2019-11-19] MEDS: Mesalamine 1.2 GM Tablet 2.4 GM PO (05:52)
[2019-11-19] MEDS: Menthol/Lanolin/Calamine/Znox 113 GM Tube 1 APPLIC TOPICAL ×2 (05:52→22:29)
[2019-11-19] MEDS: FLUoxetine 20 MG Capsule PO (05:52)
[2019-11-19] MEDS: Loperamide 2 MG Capsule PO (05:52)
[2019-11-19] MEDS: Losartan Potassium 25 MG Tablet PO (05:52)
[2019-11-19] MEDS: Metoprolol(XL)Succ 25 MG Tablet PO (05:52)
[2019-11-19] MEDS: Nystatin Powder 15gm Bottle 1 APPLIC TOPICAL ×2 (05:53→22:31)
[2019-11-19 06:04] LABS: International Normalized Ratio 3.4; Prothrombin Time (Protime)PT. 34.3 SECONDS (11.7-14.9)
[2019-11-19 06:07] LABS: Anion Gap 5 (5-15); BUN 97 mg/dL (7-18); BUN/Creat Ratio 72.9 RATIO (10-20); Calcium,Total 8.8 mg/dL (8.5-10.1); Chloride 104 mmol/L (98-107); Creatinine, Serum 1.33 mg/dL (0.55-1.02); EST Glomerular Filtration Rate 42 mL/min (>60); Est Glom Filt Rate - Afr Amer 50 mL/min (>60); Estimated Creatinine Clearance 35.27 ml/min; Glucose 204 mg/dL (74-106); Potassium 4.2 mmol/L (3.5-5.1); Sodium Level 142 mmol/L (136-145)
[2019-11-19 06:57] VITALS: O2SAT 98
[2019-11-19] MEDS: Cyanocobalamin 500 MCG Tablet 1000 MCG PO (08:01)
[2019-11-19] MEDS: Insulin Lispro 100 UNIT/ML INSULN.PEN 15 UNIT SC ×2 (08:01→18:29)
[2019-11-19] MEDS: Magnesium Oxide 400 MG Tablet 1000 MG PO (08:01)
[2019-11-19] MEDS: Multivitamins,Therapeutic Tablet 1 TABLET PO (08:01)
[2019-11-19 10:00] VITALS: PULSE 84; RESP 16; O2SAT 96
--- NOTE | 2019-11-19 11:17 | RAD_ITS ---
STUDY: X-RAY - ABDOMEN/PELVIS REASON FOR EXAM: Female, 74 years old. N/V. FAILURE TO THRIVE, DECUBITUS ULCER TECHNIQUE: Single AP view of the abdomen / pelvis. COMPARISON: None. FINDINGS: Normal visualized lung bases. There is an unremarkable bowel gas pattern. The visualized liver, spleen and kidneys are grossly normal in size and morphology. There are calcified phleboliths in the pelvis. There are diffuse degenerative changes of the visualized lumbar spine. Levoscoliosis. Osteoarthritis of both hip joints as well as the symphysis pubis RAD/Abdomen Single View IMPRESSION: Nonspecific bowel gas pattern. Electronically Signed: Sebas Polk, at 15:41 EDT , Service support ,
--- NOTE | 2019-11-19 11:23 | NURSING ---
Spouse notified of update and he approved for pt to take Zofran and Normal saline IV fluids
[2019-11-19] MEDS: Ondansetron ODT 4 MG Tablet PO (12:35)
[2019-11-19] MEDS: 0.9% Normal Saline 1,000 ML 60 ML IV (12:56)
[2019-11-19 13:04] LABS: Bacteria 0 SEEN /hpf (None Seen); Mucous, Urine 0 SEEN /hpf (<or=2+); Red Blood Cells-Urine 0 SEEN /hpf (0-5)
[2019-11-19 13:07] LABS: Color, Urine Yellow (Yellow); Glucose, Dipstick Normal (Normal); Ketone-Dipstick Negative (Negative); Leukocyte Esterase-Dipstick 500 /ul (Negative); Nitrite-Dipstick Negative (Negative); Occult Blood-Urine 10 /ul (Negative); Protein-Dipstick 15 mg/dl (Negative); Urine Bilirubin Dipstick Negative (Negative); Urine Clarity Sl. Cloudy (Clear); Urine Urobilinogen Normal (Normal)
[2019-11-19 13:16] LABS: Squamous Epithelial Cells - UA 0-5 SEEN /hpf (5-10); White Blood Cells 0-5 SEEN /hpf (0-5); Yeast-Urine 1+ /hpf (None Seen)
[2019-11-19 14:26] VITALS: BP 127/46; PULSE 77; RESP 17; TEMP 36.3; O2SAT 98
[2019-11-19] MEDS: Ciprofloxacin 250 MG Tablet PO (19:07)
--- NOTE | 2019-11-19 22:30 | NURSING ---
BLOOD SUGAR VIA PT PERSONAL CONTINUAL MONITORING DEVICE 69, CHECKED WITH HOSP DEVICE AT 88, PT GIVEN PEANUT BUTTER, CRACKER AND MILK, STATES DID NOT EAT WELL AT LUNCH OR SUPPER
[2019-11-19 22:35] LABS: Bedside Glucose 88 mg/dL (70-110)
[2019-11-19 23:00] LABS: Bedside Glucose 84 mg/dL (70-110)
[2019-11-19 23:21] LABS: Bedside Glucose 116 mg/dL (70-110)
[2019-11-20] MEDS: Ciprofloxacin 0.3% 2.5ml Bottle 2 DRP EACH EYE ×6 (01:02→21:31)
--- NOTE | 2019-11-20 04:05 | NURSING ---
Pt blood sugar 154 at this time.
[2019-11-20 04:14] VITALS: BP 145/56; PULSE 90; RESP 16; TEMP 36.6; O2SAT 96
[2019-11-20 05:04] VITALS: BP 145/56; PULSE 90
[2019-11-20] MEDS: Losartan Potassium 25 MG Tablet PO (05:04)
[2019-11-20] MEDS: Mesalamine 1.2 GM Tablet 2.4 GM PO (05:04)
[2019-11-20] MEDS: FLUoxetine 20 MG Capsule PO (05:04)
[2019-11-20] MEDS: Metoprolol(XL)Succ 25 MG Tablet PO (05:04)
[2019-11-20] MEDS: Loperamide 2 MG Capsule PO (05:04)
[2019-11-20] MEDS: Ciprofloxacin 250 MG Tablet PO ×2 (05:05→17:33)
[2019-11-20] MEDS: Menthol/Lanolin/Calamine/Znox 113 GM Tube 1 APPLIC TOPICAL ×2 (05:06→21:31)
[2019-11-20] MEDS: Nystatin Powder 15gm Bottle 1 APPLIC TOPICAL ×2 (05:06→21:36)
[2019-11-20] MEDS: 0.9% Normal Saline 1,000 ML 60 ML IV ×2 (05:12→21:29)
[2019-11-20 06:20] LABS: Anion Gap 6 (5-15); BUN 63 mg/dL (7-18); Calcium,Total 8.4 mg/dL (8.5-10.1); Chloride 107 mmol/L (98-107); Creatinine, Serum 0.98 mg/dL (0.55-1.02); EST Glomerular Filtration Rate 59 mL/min (>60); Est Glom Filt Rate - Afr Amer 71 mL/min (>60); Estimated Creatinine Clearance 47.86 ml/min; Glucose 196 mg/dL (74-106); Potassium 4.1 mmol/L (3.5-5.1); Sodium Level 142 mmol/L (136-145)
[2019-11-20 06:31] LABS: Bedside Glucose 239 mg/dL (70-110)
[2019-11-20 06:40] VITALS: O2SAT 93
[2019-11-20] MEDS: Magnesium Oxide 400 MG Tablet 1000 MG PO (07:38)
[2019-11-20] MEDS: Multivitamins,Therapeutic Tablet 1 TABLET PO (07:38)
[2019-11-20] MEDS: Cyanocobalamin 500 MCG Tablet 1000 MCG PO (07:38)
[2019-11-20] MEDS: Insulin Lispro 100 UNIT/ML INSULN.PEN 15 UNIT SC (07:39)
[2019-11-20 09:20] VITALS: PULSE 81; RESP 18; O2SAT 95
--- NOTE | 2019-11-20 11:40 | NURSING ---
Blood sugar 209.
[2019-11-20] MEDS: Insulin Lispro 100 UNIT/ML INSULN.PEN SC ×2 (11:41→17:31)
[2019-11-20 13:47] VITALS: BP 117/58; PULSE 77; RESP 22; TEMP 36.3; O2SAT 96
--- NOTE | 2019-11-20 14:40 | PN_ITS ---
Subjective: Resident seen in room, lying in bed. She has decreased appetite, states she has nausea with eating, and vomiting. Resident had neck pain which was treated with combination of steroid, muscle relaxant, gabapentin, neck pain resolved. She also had conjunctivitis, currently being treated with Cipro eye drops. UA c/w urinary tract infection, urine culture pending, treated with Cipro twice daily. Vitals/I&O's: Vital Signs Temp Pulse Resp BP Pulse Ox 97.4 F L 77 22 H 117/58 L 96 11/20/19 13:47 11/20/19 13:47 11/20/19 13:47 11/20/19 13:47 11/20/19 13:47 Oxygen Flow Rate (L/min) 2 Oxygen Delivery Method Nasal Cannula Weight: 105.143 kg Body Mass Index (BMI) 42.0 Intake and Output for Last 24 Hours 11/18/19 11/19/19 11/20/19 23:59 23:59 23:59 Intake Total 3209 / 3209 120 / 120 1216 / 1216 Output Total 1000 / 1000 1850 / 1850 600 / 600 Balance 2209 / 2209 -1730 / -1730 616 / 616 Microbiology Past 72 Hours 11/19/19 12:52 Urine, Random Urine Culture - Preliminary Culture exhibits no growth. Laboratory Results 11/19/19 22:30: POC Glucose 88 11/19/19 22:54: POC Glucose 84 11/19/19 23:15: POC Glucose 116 H 11/20/19 05:22: Sodium 142, Potassium 4.1, Chloride 107, Carbon Dioxide 29.0, Anion Gap 6, BUN 63 H, Creatinine 0.98, Estim Creat Clear Calc 47.86, Est GFR (MDRD) Af Amer 71, Est GFR (MDRD) Non-Af 59 L, BUN/Creatinine Ratio 64.0 H, Glucose 196 H, Calcium 8.4 L 11/20/19 06:19: POC Glucose 239 H 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) Edema of both legs (Chronic) Diabetes mellitus, type II (Chronic) Hypertension (Chronic) Hyperlipidemia (Chronic) Morbid obesity (Chronic) Chronic Venous Stasis (Chronic) PVD (peripheral vascular disease) (Chronic) Overflow stress urinary incontinence in female (Chronic) COPD (chronic obstructive pulmonary disease) (Chronic) Chronic respiratory failure (Chronic) Cellulitis (Chronic) Chronic acquired lymphedema (Chronic) Allergies omeprazole magnesium [From Prilosec] Allergy (Verified 10/31/19 09:27) Rash rofecoxib [From Vioxx] Allergy (Verified 10/31/19 09:27) Swelling sulfamethoxazole [From Bactrim] Allergy (Verified 10/31/19 09:27) Other BURNING AROUND MOUTH trimethoprim [From Bactrim] Allergy (Verified 10/31/19 09:27) Other BURNING AROUND MOUTH aspirin Adverse Reaction (Verified 10/31/19 14:19) Other sensitive b/c of colitis omeprazole [From Prilosec] Adverse Reaction (Verified 10/31/19 09:27) Nausea omonopril Allergy (Uncoded 10/31/19 09:27) Other COUGH SEASONAL ALLERGIES Allergy (Uncoded 10/31/19 09:27) PT UNSURE OF REACTION Home Medications: Ambulatory Orders Medication Instructions Recorded Cyanocobalamin (Vitamin B-12) 1,000 mcg PO DAILY 10/31/19 [Vitamin B-12] Fluoxetine [Prozac] 20 mg PO DAILY 10/31/19 Furosemide 2 tab PO BID 10/31/19 Iron,Carbonyl [Iron Chews] 10 mg PO DAILY 10/31/19 Loperamide [Imodium] 2 mg PO DAILY 10/31/19 Losartan Potassium [Cozaar] 25 mg PO DAILY 10/31/19 Magnesium Oxide [Magnesium] 1,000 mg PO DAILY 10/31/19 Mesalamine [Lialda] 2 tab PO DAILY 10/31/19 Metoprolol Succinate 25 mg PO DAILY 10/31/19 Multivitamins,Therapeutic 1 tab PO DAILY 10/31/19 [Multivitamin] Warfarin Sodium [Coumadin] 1 mg PO SUTUTH 10/31/19 Warfarin [Coumadin] 2 mg PO MOWEFRSA 10/31/19 Ciprofloxacin [Cipro] 500 mg PO BID 11/03/19 Surgical History: cataract, cholecystectomy, total knee arthroplasty, - - L carpal tunnel surgery, IVC Filter 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 Lives: Spouse/ Significant Other Smoking Status: Former smoker Tobacco Use: Cigarettes Alcohol: None Drugs: None - *Family History Maternal History Items: - - Arthritis Paternal History Items: Heart Disease Capacity - Capacity Assessment Tool Can the patient make a choice & communicate that choice?: Yes Can the patient understand benefits, risks and alternatives?: Yes Can the patient make a logical, rational choice?: Yes Is the choice the patient makes consistent w/ their values?: Yes Is there an impending, emergent risk to the patient?: No Does the patient have an Advance Directive?: Yes Is there a Surrogate Available?: Yes i.e. HCPOA: Yes i.e. close relative (spouse, child, parent, sibling)?: Yes Review of Systems Constitutional: Reports: Anorexia. Denies: Chills, Fever, Weight Change HEENT: Denies: Head Aches, Sinus Congestion, Sinus Drainage Cardiovascular: Denies: Chest Pain, Palpitations Respiratory: Denies: Cough, Shortness of breath at rest, Sputum production Gastrointestinal: Denies: Abdominal Pain, Nausea, Vomiting Genitourinary: Denies: Dysuria Musculoskeletal: Denies: Joint Pain, Joint Tenderness Skin: Denies: Rash, Wounds Neurological: Denies: Numbness, Tingling, Focal weakness Psychiatric: Denies: Anxiety, Depression, Homicidal Ideations, Suicidal Ideations Hematologic/ Lymphatic: Denies: Easy Bruising, Easy Bleeding Patient Problems: Active and Suspected Problems Debility (Acute) - Physical Exam Vitals/I&O's: Vital Signs Temp Pulse Resp BP Pulse Ox 97.4 F L 77 22 H 117/58 L 96 11/20/19 13:47 11/20/19 13:47 11/20/19 13:47 11/20/19 13:47 11/20/19 13:47 Oxygen Flow Rate (L/min) 2 Oxygen Delivery Method Nasal Cannula Weight: 105.143 kg Body Mass Index (BMI) 42.0 Intake and Output for Last 24 Hours 11/18/19 11/19/19 11/20/19 23:59 23:59 23:59 Intake Total 3209 / 3209 120 / 120 1216 / 1216 Output Total 1000 / 1000 1850 / 1850 600 / 600 Balance 2209 / 2209 -1730 / -1730 616 / 616 General: Alert, Oriented x3, Cooperative HEENT: Atraumatic, PERRLA, EOMI, Normocephalic Neck: Supple, No JVD, Negative Carotid Bruits Lungs: Clear to auscultation, Normal air movement Cardiovascular: Regular rate, No murmurs Abdomen: Bowel Sounds Present, Soft, Non Tender Extremities: No edema, Capillary Refill Less than 3 Seconds Skin: No rashes, No breakdown Musculoskeletal: No Tenderness to Palpation of Joints or Extremities Neurological: Cranial nerves II-XII grossly intact Psych/Mental Status: Normal Affect, Appropriate Microbiology Past 72 Hours 11/19/19 12:52 Urine, Random Urine Culture - Preliminary Culture exhibits no growth. Laboratory Results 11/19/19 22:30: POC Glucose 88 11/19/19 22:54: POC Glucose 84 11/19/19 23:15: POC Glucose 116 H 11/20/19 05:22: Sodium 142, Potassium 4.1, Chloride 107, Carbon Dioxide 29.0, Anion Gap 6, BUN 63 H, Creatinine 0.98, Estim Creat Clear Calc 47.86, Est GFR (MDRD) Af Amer 71, Est GFR (MDRD) Non-Af 59 L, BUN/Creatinine Ratio 64.0 H, Gl ucose 196 H, Calcium 8.4 L 11/20/19 06:19: POC Glucose 239 H Current Medications Acetaminophen (Tylenol) 1,000 mg PO Q6H PRN PRN PRN Reason: Pain Score 1-02/19 Last Admin: 11/18/19 23:16 Dose: 1,000 mg Documented by: Calamine/Phenol (Calmoseptine Ointment) 1 applic TOPICAL 0600,2200 [facility]; Protocol Last Admin: 11/20/19 05:06 Dose: 1 applicatio Documented by: Ciprofloxacin HCl (Ciloxan) 2 drop EACH EYE Q4 [facility] Stop: 11/25/19 10:01 Last Admin: 11/20/19 13:16 Dose: 2 drop Documented by: Ciprofloxacin HCl (Cipro) 250 mg PO BID [facility] Stop: 11/27/19 06:01 Last Admin: 11/20/19 05:05 Dose: 250 mg Documented by: [facility]yanocobalamin (Vitamin B12) [facility] Last Admin: 11/20/19 07:38 Dose: 1,000 mcg Documented by: Dextrose (D50w Syringe) 0 gm IV X1 PRN; Protocol PRN Reason: Hypoglycemia Fluoxetine HCl (Prozac) 20 mg PO DAILY [facility] Last Admin: 11/20/19 05:04 Dose: 20 mg Documented by: Glucagon () 1 mg IM .X1 PRN PRN Reason: Hypoglycemia Sodium Chloride () 1,000 mls @ 60 mls/hr IV .[id number] [facility] Last Admin: 11/20/19 05:12 Dose: 60 mls/hr Documented by: Insulin Human Lispro (Humalog Kwikpen (Bkc)) 5 unit SC TIDAC [facility] Last Admin: 11/20/19 11:41 Dose: 5 units Documented by: Loperamide HCl (Imodium) 2 mg PO DAILY [facility] Last Admin: 11/20/19 05:04 Dose: 2 mg Documented by: Losartan Potassium (Cozaar) 25 mg PO DAILY [facility] Last Admin: 11/20/19 05:04 Dose: 25 mg Documented by: Magnesium Oxide (Mag-Ox 400) [facility] Last Admin: 11/20/19 07:38 Dose: 1,000 mg Documented by: Menthol (Bengay Vanishing Scent) 1 applic TOPICAL TID PRN PRN PRN Reason: neck pain Last Admin: 11/16/19 05:43 Dose: 1 applic Documented by: Mesalamine (Lialda) 2.4 gm PO DAILY [facility] Last Admin: 11/20/19 05:04 Dose: 2.4 gm Documented by: Metoprolol Succinate (Toprol Xl ([place])) 25 mg PO DAILY [facility] Last Admin: 11/20/19 05:04 Dose: 25 mg Documented by: Multivitamins (Multivitamin) [facility] tablet [facility] Last Admin: 11/20/19 07:38 Dose: 1 tablet Documented by: Nutritional Formula (Adam - [place] Flavor) [facility] Last Admin: 11/20/19 07:39 Dose: 1 packet Documented by: Nystatin (Mycostatin Powder) 1 applic TOPICAL 0600,2200 [facility]; Protocol Last Admin: 11/20/19 05:06 Dose: 1 applicatio Documented by: Polyethylene Glycol (Miralax) 17 gm PO DAILY PRN PRN Reason: Constipation Sodium Chloride () 10 - 40 ml IV UD PRN PRN Reason: SALINE FLUSH Last Admin: 11/04/19 18:35 Dose: 10 ml Documented by: Sodium Chloride () 10 - 40 ml IV UD PRN PRN Reason: SALINE FLUSH Sodium Chloride () 10 - 40 ml IV UD PRN PRN Reason: SALINE FLUSH Warfarin Sodium (Jantoven) 1 mg PO DAILY@1700 [facility] Last Admin: 11/19/19 18:29 Dose: 1 mg Documented by: Assessment/Plan All Active Problems Failure to thrive in adult (Acute) UTI (urinary tract infection) (Acute) Debility (Acute) Cellulitis of left lower extremity (Acute) Non-pressure chronic ulcer of left calf with fat layer exposed (Resolved) Generalized weakness (Acute) Bilateral lower leg cellulitis (Acute) 74 year old female with below past medical history hospitalized for weakness secondary to complicated urinary tract infection, cellulitis of buttocks, wounds, admitted to TCU with debility, here for rehabilitation, strengthening, wound care, prior to discharge home with . * Debility - PT/OT. * Pain - Tylenol 1000MG Q6H PRN pain (1-10). * Bowel - Loperamide 2MG daily, Miralax 17GM daily PRN. * Adult immunization - Administer Prevnar 13, Pneumovax 23, Fluzone as appropriate. * DVT prophylaxis - Not necessary, already on warfarin. * Complicated urinary tract infection - Cipro 250MG BID thru 11/27/2019, urine culture pending. * Conjunctivitis - Cipro 0.3% 2gtt OU Q4H thru 11/24/2019. * Vitamin B12 deficiency - B12 1000MCG daily. * Anxiety - Fluoxetine 20MG daily. * Edema - Resolved, Lasix stopped. * Nutrition - MVI daily. * Hypertension - Metoprolol succinate 25MG daily, Losartan 25MG daily. * Hypomagnesemia - Magnesium Oxide 1000MG daily. * Skin irritation - Calmoseptine twice daily, Bengay topical TID. * Ulcerative Colitis - Mesalamine 2.4GM daily. * Tinea Corporis - Nystatin powder topical twice daily. * Pulmonary Embolism - INR 3.4, Warfarin lowered to 1MG daily, follow INR. * Wounds - Consult wound nurse, Adam 1 packet BID. * Diabetes Mellitus II - Humalog 5 units TIDAC. * Dehydration - Normal Saline 60ML/hour. * Acute kidney injury - improving, repeat BMP tomorrow. * Appetite loss - Rx Mirtazapine 7.5MG QHS.
[2019-11-20] MEDS: Mirtazapine 15 MG Tablet 7.5 MG PO (21:32)
--- NOTE | 2019-11-20 22:00 | NURSING ---
Blood sugar this evening is 180.
[2019-11-20 23:01] LABS: Bedside Glucose 180 mg/dL (70-110)
[2019-11-21 05:31] VITALS: BP 106/44; PULSE 79; RESP 18; TEMP 37; O2SAT 94
[2019-11-21] MEDS: Polyethylene Glycol 3350 17 GM PACKET PO (05:34)
[2019-11-21] MEDS: Nystatin Powder 15gm Bottle 1 APPLIC TOPICAL ×2 (05:34→20:29)
[2019-11-21 05:35] VITALS: BP 106/44; PULSE 79
[2019-11-21] MEDS: Ciprofloxacin 250 MG Tablet PO ×2 (05:35→18:13)
[2019-11-21] MEDS: FLUoxetine 20 MG Capsule PO (05:35)
[2019-11-21] MEDS: Metoprolol(XL)Succ 25 MG Tablet PO (05:35)
[2019-11-21] MEDS: Mesalamine 1.2 GM Tablet 2.4 GM PO (05:36)
[2019-11-21] MEDS: Losartan Potassium 25 MG Tablet PO (05:36)
[2019-11-21] MEDS: Ciprofloxacin 0.3% 2.5ml Bottle 2 DRP EACH EYE ×5 (05:39→20:30)
[2019-11-21] MEDS: Menthol/Lanolin/Calamine/Znox 113 GM Tube 1 APPLIC TOPICAL ×2 (05:40→20:29)
[2019-11-21 06:21] LABS: Bedside Glucose 180 mg/dL (70-110)
--- NOTE | 2019-11-21 06:38 | NURSING ---
Blood sugar this morning is 180.
[2019-11-21] MEDS: Cyanocobalamin 500 MCG Tablet 1000 MCG PO (08:04)
[2019-11-21] MEDS: Magnesium Oxide 400 MG Tablet 1000 MG PO (08:04)
[2019-11-21] MEDS: Multivitamins,Therapeutic Tablet 1 TABLET PO (08:04)
[2019-11-21] MEDS: Insulin Lispro 100 UNIT/ML INSULN.PEN SC ×3 (08:06→18:14)
[2019-11-21 08:16] LABS: Bedside Glucose 174 mg/dL (70-110)
[2019-11-21 14:57] VITALS: BP 142/70; PULSE 74; RESP 18; TEMP 36.3; O2SAT 90
[2019-11-21 16:51] LABS: Bedside Glucose 171 mg/dL (70-110)
[2019-11-21] MEDS: Mirtazapine 15 MG Tablet 7.5 MG PO (20:31)
[2019-11-21 21:32] LABS: Bedside Glucose 149 mg/dL (70-110)
--- NOTE | 2019-11-21 23:34 | NURSING ---
PM blood sugar per home monitor 124.
[2019-11-22] MEDS: Ciprofloxacin 0.3% 2.5ml Bottle 2 DRP EACH EYE ×6 (00:42→21:09)
[2019-11-22 02:16] LABS: Bedside Glucose 132 mg/dL (70-110)
[2019-11-22] MEDS: Menthol/Lanolin/Calamine/Znox 113 GM Tube 1 APPLIC TOPICAL ×2 (05:41→21:07)
[2019-11-22] MEDS: Nystatin Powder 15gm Bottle 1 APPLIC TOPICAL ×2 (05:41→21:07)
[2019-11-22] MEDS: Polyethylene Glycol 3350 17 GM PACKET PO (05:42)
[2019-11-22] MEDS: Losartan Potassium 25 MG Tablet PO (05:44)
[2019-11-22] MEDS: Mesalamine 1.2 GM Tablet 2.4 GM PO (05:44)
[2019-11-22] MEDS: Ciprofloxacin 250 MG Tablet PO (05:44)
[2019-11-22] MEDS: FLUoxetine 20 MG Capsule PO (05:44)
[2019-11-22 05:45] VITALS: BP 129/55; PULSE 82
[2019-11-22] MEDS: Metoprolol(XL)Succ 25 MG Tablet PO (05:45)
[2019-11-22 05:49] VITALS: BP 129/55; PULSE 81; RESP 16; TEMP 36.1; O2SAT 92
[2019-11-22] MEDS: 0.9% Saline Lock 10 ML Syringe IV ×2 (05:51→21:10)
[2019-11-22 06:30] LABS: Bedside Glucose 164 mg/dL (70-110)
--- NOTE | 2019-11-22 06:53 | NURSING ---
AM blood sugar per home monitor 151
[2019-11-22] MEDS: Insulin Lispro 100 UNIT/ML INSULN.PEN SC ×3 (08:11→17:39)
[2019-11-22] MEDS: Magnesium Oxide 400 MG Tablet 1000 MG PO (08:12)
[2019-11-22] MEDS: Cyanocobalamin 500 MCG Tablet 1000 MCG PO (08:12)
[2019-11-22] MEDS: Multivitamins,Therapeutic Tablet 1 TABLET PO (08:13)
[2019-11-22 10:00] VITALS: PULSE 70; RESP 16; O2SAT 90
[2019-11-22 11:00] LABS: Bedside Glucose 224 mg/dL (70-110)
[2019-11-22 13:02] LABS: International Normalized Ratio 3.3; Prothrombin Time (Protime)PT. 33.5 SECONDS (11.7-14.9)
[2019-11-22 14:29] VITALS: BP 136/60; PULSE 73; RESP 16; TEMP 36.4; O2SAT 90
[2019-11-22 17:46] LABS: Bedside Glucose 128 mg/dL (70-110)
[2019-11-22 20:21] LABS: Bedside Glucose 189 mg/dL (70-110)
[2019-11-22] MEDS: Mirtazapine 15 MG Tablet 7.5 MG PO (21:10)
[2019-11-22 21:26] LABS: Bedside Glucose 164 mg/dL (70-110)
[2019-11-23] MEDS: Ciprofloxacin 0.3% 2.5ml Bottle 2 DRP EACH EYE ×6 (01:34→21:32)
[2019-11-23] MEDS: Polyethylene Glycol 3350 17 GM PACKET PO (05:21)
[2019-11-23] MEDS: Menthol/Lanolin/Calamine/Znox 113 GM Tube 1 APPLIC TOPICAL ×2 (05:22→21:31)
[2019-11-23] MEDS: Nystatin Powder 15gm Bottle 1 APPLIC TOPICAL ×2 (05:23→21:31)
[2019-11-23 05:25] VITALS: BP 146/54; PULSE 61; RESP 18; TEMP 36.1; O2SAT 96
[2019-11-23] MEDS: FLUoxetine 20 MG Capsule PO (05:28)
[2019-11-23 05:29] VITALS: BP 146/54; PULSE 61
[2019-11-23] MEDS: Losartan Potassium 25 MG Tablet PO (05:29)
[2019-11-23] MEDS: Metoprolol(XL)Succ 25 MG Tablet PO (05:29)
[2019-11-23] MEDS: Mesalamine 1.2 GM Tablet 2.4 GM PO (05:29)
[2019-11-23 05:50] LABS: Prothrombin Time (Protime)PT. 30.8 SECONDS (11.7-14.9)
[2019-11-23 06:31] LABS: Bedside Glucose 177 mg/dL (70-110)
[2019-11-23] MEDS: Insulin Lispro 100 UNIT/ML INSULN.PEN SC ×3 (07:55→17:53)
[2019-11-23] MEDS: Magnesium Oxide 400 MG Tablet 1000 MG PO (07:57)
[2019-11-23] MEDS: Cyanocobalamin 500 MCG Tablet 1000 MCG PO (07:58)
[2019-11-23] MEDS: Multivitamins,Therapeutic Tablet 1 TABLET PO (07:58)
[2019-11-23 11:21] LABS: Bedside Glucose 279 mg/dL (70-110)
[2019-11-23 14:01] VITALS: O2SAT 99
[2019-11-23 15:16] VITALS: BP 132/80; PULSE 70; RESP 18; TEMP 36.6; O2SAT 97
[2019-11-23] MEDS: Warfarin 0.5 MG Tablet PO (17:54)
[2019-11-23 17:55] LABS: Bedside Glucose 156 mg/dL (70-110)
[2019-11-23] MEDS: Mirtazapine 15 MG Tablet 7.5 MG PO (21:32)
[2019-11-23] MEDS: 0.9% Saline Lock 10 ML Syringe IV (21:33)
[2019-11-23 21:45] LABS: Bedside Glucose 211 mg/dL (70-110)
[2019-11-24] MEDS: Ciprofloxacin 0.3% 2.5ml Bottle 2 DRP EACH EYE ×6 (01:55→21:39)
[2019-11-24 04:56] VITALS: BP 121/65; PULSE 67; RESP 18; TEMP 37; O2SAT 98
[2019-11-24 04:59] VITALS: BP 121/65; PULSE 67
[2019-11-24] MEDS: FLUoxetine 20 MG Capsule PO (04:59)
[2019-11-24] MEDS: Metoprolol(XL)Succ 25 MG Tablet PO (04:59)
[2019-11-24] MEDS: Mesalamine 1.2 GM Tablet 2.4 GM PO (04:59)
[2019-11-24] MEDS: Menthol/Lanolin/Calamine/Znox 113 GM Tube 1 APPLIC TOPICAL ×2 (04:59→21:41)
[2019-11-24] MEDS: Losartan Potassium 25 MG Tablet PO (05:00)
[2019-11-24] MEDS: Nystatin Powder 15gm Bottle 1 APPLIC TOPICAL ×2 (05:01→21:42)
[2019-11-24 06:31] LABS: Bedside Glucose 147 mg/dL (70-110)
--- NOTE | 2019-11-24 07:48 | NURSING ---
BLOOD SUGAR 139 VIA OWN EXTERNAL MONITOR.
[2019-11-24] MEDS: Insulin Lispro 100 UNIT/ML INSULN.PEN SC ×3 (07:50→17:40)
[2019-11-24] MEDS: Magnesium Oxide 400 MG Tablet 1000 MG PO (07:51)
[2019-11-24] MEDS: Multivitamins,Therapeutic Tablet 1 TABLET PO (07:51)
[2019-11-24] MEDS: Cyanocobalamin 500 MCG Tablet 1000 MCG PO (07:51)
[2019-11-24 11:11] LABS: Bedside Glucose 276 mg/dL (70-110)
[2019-11-24] MEDS: Acetaminophen 500 MG Tablet 1000 MG PO (13:22)
[2019-11-24 13:36] VITALS: PULSE 68; O2SAT 95
[2019-11-24 14:32] VITALS: BP 133/63; PULSE 57; RESP 12; TEMP 36.6; O2SAT 95
[2019-11-24 17:00] LABS: Bedside Glucose 168 mg/dL (70-110)
[2019-11-24] MEDS: 0.9% Saline Lock 10 ML Syringe IV (17:34)
[2019-11-24] MEDS: Warfarin 0.5 MG Tablet PO (17:35)
[2019-11-24 21:36] LABS: Bedside Glucose 184 mg/dL (70-110)
[2019-11-24] MEDS: Mirtazapine 15 MG Tablet 7.5 MG PO (21:39)
[2019-11-25] MEDS: Ciprofloxacin 0.3% 2.5ml Bottle 2 DRP EACH EYE ×3 (01:29→10:30)
[2019-11-25 05:47] LABS: Absolute Lymphocyte Count 1.54 X10^3/uL (0.83-4.51); Absolute Neutrophil Count 5.6 X10^3/uL (2.0-7.7); Basophil# 0.02 X10^3/uL; Basophil% 0.2 % (0-1); Eosinophil# 0.27 X10^3/uL; Eosinophils% 3.4 % (0-5); Hematocrit 33.9 % (37-47); Hemoglobin 10.1 g/dL (12.0-15.0); Lymphocyte # 1.54 X10^3/ul (4.0); Lymphocyte % 19.1 % (19-41); Mean Corp Hgb Conc 29.8 g/dL (32-36); Mean Corpuscular Hgb 29.3 pg (27.0-32.0); Mean Corpuscular Volume 98.3 fL (81-99); Mean Platelet Vol. 11.2 fl (6.2-12.0); Monocyte# 0.57 X10^3/uL; Monocyte% 7.1 % (0-10); NRBC Flagged by Analyzer 0 % (0-5); Neutrophil # 5.62 X10^3/uL (2.7-7.7); Neutrophil % 69.8 % (47-70); Platelet Count 220 K/mm3 (150-450); RBC Distribution Width CV 13.8 % (11.6-14.6); RBC Distribution Width SD 49.1 fl (35.1-43.9); Red Blood Count 3.45 M/mm3 (4.2-5.4); White Blood Count 8.1 K/mm3 (4.4-11.0)
[2019-11-25 05:56] VITALS: BP 131/62; PULSE 67; RESP 18; TEMP 36.5; O2SAT 94
[2019-11-25] MEDS: Menthol/Lanolin/Calamine/Znox 113 GM Tube 1 APPLIC TOPICAL ×2 (05:59→21:54)
[2019-11-25] MEDS: Nystatin Powder 15gm Bottle 1 APPLIC TOPICAL ×2 (05:59→21:54)
[2019-11-25 06:00] VITALS: BP 131/62; PULSE 67
[2019-11-25] MEDS: Mesalamine 1.2 GM Tablet 2.4 GM PO (06:00)
[2019-11-25] MEDS: FLUoxetine 20 MG Capsule PO (06:00)
[2019-11-25] MEDS: Metoprolol(XL)Succ 25 MG Tablet PO (06:00)
[2019-11-25 06:01] LABS: Anion Gap 2 (5-15); BUN 25 mg/dL (7-18); BUN/Creat Ratio 29.2 RATIO (10-20); Calcium,Total 8.4 mg/dL (8.5-10.1); Chloride 111 mmol/L (98-107); Creatinine, Serum 0.86 mg/dL (0.55-1.02); EST Glomerular Filtration Rate 69 mL/min (>60); Est Glom Filt Rate - Afr Amer 84 mL/min (>60); Estimated Creatinine Clearance 54.54 ml/min; Glucose 163 mg/dL (74-106); Potassium 4.4 mmol/L (3.5-5.1); Sodium Level 142 mmol/L (136-145)
[2019-11-25] MEDS: Loperamide 2 MG Capsule PO (06:01)
[2019-11-25] MEDS: Losartan Potassium 25 MG Tablet PO (06:01)
[2019-11-25 06:26] LABS: Bedside Glucose 174 mg/dL (70-110)
[2019-11-25 07:33] VITALS: O2SAT 91
[2019-11-25] MEDS: Magnesium Oxide 400 MG Tablet 1000 MG PO (07:49)
[2019-11-25] MEDS: Insulin Lispro 100 UNIT/ML INSULN.PEN SC ×3 (07:49→17:21)
[2019-11-25] MEDS: Multivitamins,Therapeutic Tablet 1 TABLET PO (07:49)
[2019-11-25] MEDS: Cyanocobalamin 500 MCG Tablet 1000 MCG PO (07:49)
[2019-11-25 11:01] LABS: Bedside Glucose 250 mg/dL (70-110)
[2019-11-25 14:38] VITALS: BP 114/55; PULSE 76; RESP 18; TEMP 36.6; O2SAT 100
[2019-11-25 17:05] LABS: Bedside Glucose 178 mg/dL (70-110)
[2019-11-25] MEDS: Warfarin 0.5 MG Tablet PO (17:22)
[2019-11-25 21:11] LABS: Bedside Glucose 129 mg/dL (70-110)
[2019-11-25] MEDS: Mirtazapine 15 MG Tablet 7.5 MG PO (21:52)
[2019-11-26 05:39] VITALS: BP 154/61; PULSE 65
[2019-11-26] MEDS: Metoprolol(XL)Succ 25 MG Tablet PO (05:39)
[2019-11-26] MEDS: Losartan Potassium 25 MG Tablet PO (05:39)
[2019-11-26] MEDS: Loperamide 2 MG Capsule PO (05:39)
[2019-11-26] MEDS: Mesalamine 1.2 GM Tablet 2.4 GM PO (05:39)
[2019-11-26] MEDS: FLUoxetine 20 MG Capsule PO (05:39)
[2019-11-26 05:43] VITALS: BP 154/61; PULSE 65; RESP 18; TEMP 36.7; O2SAT 98
[2019-11-26] MEDS: Menthol/Lanolin/Calamine/Znox 113 GM Tube 1 APPLIC TOPICAL ×2 (05:43→21:57)
[2019-11-26] MEDS: Nystatin Powder 15gm Bottle 1 APPLIC TOPICAL ×2 (05:43→21:57)
--- NOTE | 2019-11-26 05:44 | NURSING ---
Home glucose monitor reading this am 148
[2019-11-26 06:20] LABS: Bedside Glucose 156 mg/dL (70-110)
[2019-11-26 06:57] LABS: International Normalized Ratio 2.3; Prothrombin Time (Protime)PT. 25.1 SECONDS (11.7-14.9)
[2019-11-26] MEDS: Acetaminophen 500 MG Tablet 1000 MG PO (08:11)
[2019-11-26] MEDS: Magnesium Oxide 400 MG Tablet 1000 MG PO (08:12)
[2019-11-26] MEDS: Cyanocobalamin 500 MCG Tablet 1000 MCG PO (08:12)
[2019-11-26] MEDS: Multivitamins,Therapeutic Tablet 1 TABLET PO (08:12)
[2019-11-26] MEDS: Insulin Lispro 100 UNIT/ML INSULN.PEN SC ×3 (08:14→18:20)
[2019-11-26 11:06] LABS: Bedside Glucose 235 mg/dL (70-110)
[2019-11-26 14:43] VITALS: BP 140/70; PULSE 69; RESP 18; TEMP 524.4; TEMP 976; O2SAT 95
[2019-11-26 16:41] LABS: Bedside Glucose 161 mg/dL (70-110)
[2019-11-26] MEDS: Warfarin 0.5 MG Tablet PO (18:20)
[2019-11-26 21:21] LABS: Bedside Glucose 156 mg/dL (70-110)
[2019-11-26] MEDS: Mirtazapine 15 MG Tablet 7.5 MG PO (21:56)
[2019-11-27 04:38] VITALS: BP 105/41; PULSE 73; RESP 18; TEMP 36.9; O2SAT 93
[2019-11-27] MEDS: Mesalamine 1.2 GM Tablet 2.4 GM PO (04:38)
[2019-11-27] MEDS: Metoprolol(XL)Succ 25 MG Tablet PO (04:38)
[2019-11-27] MEDS: Losartan Potassium 25 MG Tablet PO (04:39)
[2019-11-27] MEDS: FLUoxetine 20 MG Capsule PO (04:39)
[2019-11-27] MEDS: Loperamide 2 MG Capsule PO (04:39)
[2019-11-27] MEDS: Menthol/Lanolin/Calamine/Znox 113 GM Tube 1 APPLIC TOPICAL ×2 (04:40→21:51)
[2019-11-27] MEDS: Nystatin Powder 15gm Bottle 1 APPLIC TOPICAL ×2 (04:41→21:50)
[2019-11-27 06:30] LABS: Bedside Glucose 128 mg/dL (70-110)
[2019-11-27] MEDS: Multivitamins,Therapeutic Tablet 1 TABLET PO (07:51)
[2019-11-27] MEDS: Cyanocobalamin 500 MCG Tablet 1000 MCG PO (07:51)
[2019-11-27] MEDS: Insulin Lispro 100 UNIT/ML INSULN.PEN SC ×3 (07:51→18:02)
[2019-11-27] MEDS: Magnesium Oxide 400 MG Tablet 1000 MG PO (07:51)
[2019-11-27 10:00] VITALS: PULSE 88; RESP 16; O2SAT 99
[2019-11-27 11:30] LABS: Bedside Glucose 229 mg/dL (70-110)
[2019-11-27 14:02] VITALS: BP 118/60; PULSE 65; RESP 20; TEMP 36.1; O2SAT 95
[2019-11-27 17:46] LABS: Bedside Glucose 151 mg/dL (70-110)
[2019-11-27] MEDS: Warfarin 0.5 MG Tablet PO (18:02)
[2019-11-27 21:35] LABS: Bedside Glucose 173 mg/dL (70-110)
[2019-11-27] MEDS: Mirtazapine 15 MG Tablet 7.5 MG PO (21:50)
[2019-11-28 05:14] VITALS: BP 120/54; PULSE 68; RESP 16; TEMP 36.2; O2SAT 93
[2019-11-28 05:18] VITALS: BP 120/54; PULSE 68
[2019-11-28] MEDS: Loperamide 2 MG Capsule PO (05:18)
[2019-11-28] MEDS: Mesalamine 1.2 GM Tablet 2.4 GM PO (05:18)
[2019-11-28] MEDS: Losartan Potassium 25 MG Tablet PO (05:18)
[2019-11-28] MEDS: Metoprolol(XL)Succ 25 MG Tablet PO (05:18)
[2019-11-28] MEDS: FLUoxetine 20 MG Capsule PO (05:18)
[2019-11-28] MEDS: Nystatin Powder 15gm Bottle 1 APPLIC TOPICAL ×2 (05:19→21:47)
[2019-11-28] MEDS: Menthol/Lanolin/Calamine/Znox 113 GM Tube 1 APPLIC TOPICAL ×2 (05:19→21:47)
[2019-11-28 06:25] LABS: Bedside Glucose 133 mg/dL (70-110)
[2019-11-28] MEDS: Insulin Lispro 100 UNIT/ML INSULN.PEN SC ×2 (08:08→12:01)
[2019-11-28] MEDS: Cyanocobalamin 500 MCG Tablet 1000 MCG PO (08:08)
[2019-11-28] MEDS: Multivitamins,Therapeutic Tablet 1 TABLET PO (08:08)
[2019-11-28] MEDS: Magnesium Oxide 400 MG Tablet 1000 MG PO (08:08)
[2019-11-28 11:20] LABS: Bedside Glucose 229 mg/dL (70-110)
[2019-11-28 14:10] VITALS: BP 112/61; PULSE 55; RESP 18; TEMP 36.3; O2SAT 100
[2019-11-28 16:05] VITALS: O2SAT 94
[2019-11-28 17:11] LABS: Bedside Glucose 164 mg/dL (70-110)
[2019-11-28] MEDS: Warfarin 0.5 MG Tablet PO (17:32)
[2019-11-28] MEDS: Insulin Lispro 100 UNIT/ML INSULN.PEN 8 UNIT SC (17:32)
[2019-11-28] MEDS: Mirtazapine 15 MG Tablet 7.5 MG PO (21:49)
[2019-11-28 22:05] LABS: Bedside Glucose 148 mg/dL (70-110)
[2019-11-29 05:47] VITALS: BP 129/66; PULSE 66; RESP 16; TEMP 36.6; O2SAT 95
[2019-11-29] MEDS: Menthol/Lanolin/Calamine/Znox 113 GM Tube 1 APPLIC TOPICAL ×2 (05:48→20:36)
[2019-11-29] MEDS: Mesalamine 1.2 GM Tablet 2.4 GM PO (05:48)
[2019-11-29] MEDS: Losartan Potassium 25 MG Tablet PO (05:48)
[2019-11-29 05:49] VITALS: BP 129/66; PULSE 66
[2019-11-29] MEDS: Metoprolol(XL)Succ 25 MG Tablet PO (05:49)
[2019-11-29] MEDS: FLUoxetine 20 MG Capsule PO (05:49)
[2019-11-29] MEDS: Loperamide 2 MG Capsule PO (05:49)
[2019-11-29] MEDS: Nystatin Powder 15gm Bottle 1 APPLIC TOPICAL ×2 (05:49→20:36)
--- NOTE | 2019-11-29 06:53 | NURSING ---
Blood sugar via [facility] blood glucose monitor 119
[2019-11-29 07:10] VITALS: O2SAT 94
[2019-11-29] MEDS: Insulin Lispro 100 UNIT/ML INSULN.PEN 8 UNIT SC ×3 (07:49→17:43)
[2019-11-29] MEDS: Magnesium Oxide 400 MG Tablet 1000 MG PO (07:50)
[2019-11-29] MEDS: Cyanocobalamin 500 MCG Tablet 1000 MCG PO (07:50)
[2019-11-29] MEDS: Multivitamins,Therapeutic Tablet 1 TABLET PO (07:50)
[2019-11-29 14:34] VITALS: BP 108/59; PULSE 69; RESP 20; TEMP 35.9; O2SAT 96
[2019-11-29 14:48] VITALS: PULSE 73; RESP 18; O2SAT 93
[2019-11-29 17:03] LABS: Bedside Glucose 186 mg/dL (70-110)
[2019-11-29 17:03] LABS: Bedside Glucose 150 mg/dL (70-110)
[2019-11-29 17:04] LABS: Bedside Glucose 189 mg/dL (70-110)
[2019-11-29] MEDS: Warfarin 0.5 MG Tablet PO (17:42)
[2019-11-29] MEDS: Mirtazapine 15 MG Tablet 7.5 MG PO (20:37)
[2019-11-29 21:40] LABS: Bedside Glucose 158 mg/dL (70-110)
[2019-11-30 05:31] VITALS: BP 145/79; PULSE 64; RESP 16; TEMP 36.6; O2SAT 93
[2019-11-30 05:35] VITALS: BP 145/79; PULSE 64
[2019-11-30] MEDS: Menthol/Lanolin/Calamine/Znox 113 GM Tube 1 APPLIC TOPICAL ×2 (05:35→21:58)
[2019-11-30] MEDS: Loperamide 2 MG Capsule PO (05:35)
[2019-11-30] MEDS: Nystatin Powder 15gm Bottle 1 APPLIC TOPICAL ×2 (05:35→21:58)
[2019-11-30] MEDS: FLUoxetine 20 MG Capsule PO (05:35)
[2019-11-30] MEDS: Metoprolol(XL)Succ 25 MG Tablet PO (05:35)
[2019-11-30] MEDS: Mesalamine 1.2 GM Tablet 2.4 GM PO (05:36)
[2019-11-30] MEDS: Losartan Potassium 25 MG Tablet PO (05:36)
[2019-11-30 06:26] LABS: Bedside Glucose 149 mg/dL (70-110)
[2019-11-30 07:24] VITALS: O2SAT 92
[2019-11-30] MEDS: Multivitamins,Therapeutic Tablet 1 TABLET PO (08:03)
[2019-11-30] MEDS: Magnesium Oxide 400 MG Tablet 1000 MG PO (08:03)
[2019-11-30] MEDS: Insulin Lispro 100 UNIT/ML INSULN.PEN 8 UNIT SC ×3 (08:03→17:42)
[2019-11-30] MEDS: Cyanocobalamin 500 MCG Tablet 1000 MCG PO (08:03)
[2019-11-30 11:00] LABS: Bedside Glucose 212 mg/dL (70-110)
[2019-11-30 15:46] VITALS: BP 118/68; PULSE 58; RESP 16; TEMP 36.4; O2SAT 94
[2019-11-30 16:11] LABS: Bedside Glucose 194 mg/dL (70-110)
[2019-11-30] MEDS: Warfarin 0.5 MG Tablet PO (16:36)
[2019-11-30] MEDS: Mirtazapine 15 MG Tablet 7.5 MG PO (21:55)
[2019-11-30 22:36] LABS: Bedside Glucose 142 mg/dL (70-110)
[2019-12-01] MEDS: Nystatin Powder 15gm Bottle 1 APPLIC TOPICAL ×2 (05:56→21:15)
[2019-12-01 05:57] VITALS: BP 139/49; PULSE 63
[2019-12-01] MEDS: Loperamide 2 MG Capsule PO (05:57)
[2019-12-01] MEDS: Metoprolol(XL)Succ 25 MG Tablet PO (05:57)
[2019-12-01] MEDS: Losartan Potassium 25 MG Tablet PO (05:57)
[2019-12-01] MEDS: Mesalamine 1.2 GM Tablet 2.4 GM PO (05:57)
[2019-12-01] MEDS: FLUoxetine 20 MG Capsule PO (05:57)
[2019-12-01] MEDS: Menthol/Lanolin/Calamine/Znox 113 GM Tube 1 APPLIC TOPICAL ×2 (05:58→21:15)
[2019-12-01 06:01] VITALS: BP 139/49; PULSE 63; RESP 18; TEMP 36.3; O2SAT 97
[2019-12-01 06:35] LABS: Bedside Glucose 155 mg/dL (70-110)
[2019-12-01 06:40] VITALS: O2SAT 96
[2019-12-01] MEDS: Magnesium Oxide 400 MG Tablet 1000 MG PO (09:13)
[2019-12-01] MEDS: Multivitamins,Therapeutic Tablet 1 TABLET PO (09:14)
[2019-12-01] MEDS: Cyanocobalamin 500 MCG Tablet 1000 MCG PO (09:14)
[2019-12-01] MEDS: Insulin Lispro 100 UNIT/ML INSULN.PEN 8 UNIT SC ×3 (09:14→17:28)
[2019-12-01 11:26] LABS: Bedside Glucose 170 mg/dL (70-110)
[2019-12-01 14:53] VITALS: BP 136/49; PULSE 56; RESP 18; TEMP 35.8; O2SAT 97
[2019-12-01 16:40] LABS: Bedside Glucose 138 mg/dL (70-110)
[2019-12-01] MEDS: Warfarin 0.5 MG Tablet PO (17:29)
[2019-12-01] MEDS: Mirtazapine 15 MG Tablet 7.5 MG PO (21:15)
[2019-12-01 21:56] LABS: Bedside Glucose 195 mg/dL (70-110)
[2019-12-02 05:44] LABS: Absolute Lymphocyte Count 1.31 X10^3/uL (0.83-4.51); Absolute Neutrophil Count 4.8 X10^3/uL (2.0-7.7); Basophil# 0.03 X10^3/uL; Basophil% 0.4 % (0-1); Eosinophil# 0.24 X10^3/uL; Eosinophils% 3.5 % (0-5); Hematocrit 34.1 % (37-47); Hemoglobin 10.1 g/dL (12.0-15.0); Lymphocyte # 1.31 X10^3/ul (4.0); Mean Corp Hgb Conc 29.6 g/dL (32-36); Mean Corpuscular Hgb 29.1 pg (27.0-32.0); Mean Corpuscular Volume 98.3 fL (81-99); Mean Platelet Vol. 10.2 fl (6.2-12.0); Monocyte# 0.53 X10^3/uL; Monocyte% 7.7 % (0-10); NRBC Flagged by Analyzer 0 % (0-5); Neutrophil # 4.75 X10^3/uL (2.7-7.7); Neutrophil % 69.1 % (47-70); Platelet Count 206 K/mm3 (150-450); RBC Distribution Width CV 14.3 % (11.6-14.6); RBC Distribution Width SD 50.1 fl (35.1-43.9); Red Blood Count 3.47 M/mm3 (4.2-5.4); White Blood Count 6.9 K/mm3 (4.4-11.0)
[2019-12-02 06:16] VITALS: BP 126/57; PULSE 62; RESP 18; TEMP 36.6; O2SAT 95
[2019-12-02] MEDS: Nystatin Powder 15gm Bottle 1 APPLIC TOPICAL ×2 (06:18→19:53)
[2019-12-02 06:19] VITALS: BP 126/57; PULSE 62
[2019-12-02] MEDS: Mesalamine 1.2 GM Tablet 2.4 GM PO (06:19)
[2019-12-02] MEDS: Metoprolol(XL)Succ 25 MG Tablet PO (06:19)
[2019-12-02] MEDS: Loperamide 2 MG Capsule PO (06:19)
[2019-12-02] MEDS: Losartan Potassium 25 MG Tablet PO (06:19)
[2019-12-02] MEDS: FLUoxetine 20 MG Capsule PO (06:19)
[2019-12-02] MEDS: Menthol/Lanolin/Calamine/Znox 113 GM Tube 1 APPLIC TOPICAL ×2 (06:21→19:54)
[2019-12-02 06:33] LABS: Anion Gap 1 (5-15); BUN 24 mg/dL (7-18); Calcium,Total 8.5 mg/dL (8.5-10.1); Chloride 109 mmol/L (98-107); EST Glomerular Filtration Rate 58 mL/min (>60); Est Glom Filt Rate - Afr Amer 70 mL/min (>60); Glucose 149 mg/dL (74-106); Potassium 4.8 mmol/L (3.5-5.1); Sodium Level 141 mmol/L (136-145)
[2019-12-02 06:36] LABS: Bedside Glucose 147 mg/dL (70-110)
[2019-12-02 07:17] VITALS: O2SAT 95
[2019-12-02] MEDS: Cyanocobalamin 500 MCG Tablet 1000 MCG PO (08:23)
[2019-12-02] MEDS: Magnesium Oxide 400 MG Tablet 1000 MG PO (08:23)
[2019-12-02] MEDS: Insulin Lispro 100 UNIT/ML INSULN.PEN 8 UNIT SC ×3 (08:23→17:53)
[2019-12-02] MEDS: Multivitamins,Therapeutic Tablet 1 TABLET PO (08:24)
[2019-12-02 11:03] LABS: Bedside Glucose 192 mg/dL (70-110)
[2019-12-02 14:09] VITALS: BP 115/56; PULSE 63; RESP 16; TEMP 36.4; O2SAT 95
[2019-12-02 16:41] LABS: Bedside Glucose 111 mg/dL (70-110)
[2019-12-02] MEDS: Warfarin 0.5 MG Tablet PO (17:53)
[2019-12-02] MEDS: Mirtazapine 15 MG Tablet 7.5 MG PO (19:52)
[2019-12-02 22:25] LABS: Bedside Glucose 116 mg/dL (70-110)
[2019-12-03 05:11] VITALS: BP 134/52; PULSE 65; RESP 18; TEMP 37.2; O2SAT 92
[2019-12-03 05:13] VITALS: BP 134/52; PULSE 65
[2019-12-03] MEDS: Metoprolol(XL)Succ 25 MG Tablet PO (05:13)
[2019-12-03] MEDS: Losartan Potassium 25 MG Tablet PO (05:13)
[2019-12-03] MEDS: Loperamide 2 MG Capsule PO (05:13)
[2019-12-03] MEDS: FLUoxetine 20 MG Capsule PO (05:13)
[2019-12-03] MEDS: Mesalamine 1.2 GM Tablet 2.4 GM PO (05:13)
[2019-12-03] MEDS: Menthol/Lanolin/Calamine/Znox 113 GM Tube 1 APPLIC TOPICAL ×2 (05:14→21:03)
[2019-12-03] MEDS: Nystatin Powder 15gm Bottle 1 APPLIC TOPICAL ×2 (05:14→21:06)
[2019-12-03] MEDS: Acetaminophen 500 MG Tablet 1000 MG PO (05:17)
[2019-12-03 06:31] LABS: Bedside Glucose 141 mg/dL (70-110)
[2019-12-03] MEDS: Cyanocobalamin 500 MCG Tablet 1000 MCG PO (07:53)
[2019-12-03] MEDS: Magnesium Oxide 400 MG Tablet 1000 MG PO (07:53)
[2019-12-03] MEDS: Multivitamins,Therapeutic Tablet 1 TABLET PO (07:53)
[2019-12-03] MEDS: Insulin Lispro 100 UNIT/ML INSULN.PEN 8 UNIT SC ×3 (07:54→18:03)
[2019-12-03 08:53] VITALS: PULSE 53; O2SAT 93
[2019-12-03 12:01] LABS: Bedside Glucose 173 mg/dL (70-110)
[2019-12-03 13:36] VITALS: BP 112/43; PULSE 61; RESP 16; TEMP 36.4; O2SAT 92
[2019-12-03 16:30] LABS: Bedside Glucose 91 mg/dL (70-110)
[2019-12-03] MEDS: Warfarin 0.5 MG Tablet PO (17:32)
[2019-12-03] MEDS: Mirtazapine 15 MG Tablet 7.5 MG PO (21:05)
[2019-12-03 21:21] LABS: Bedside Glucose 160 mg/dL (70-110)
--- NOTE | 2019-12-03 21:54 | PCA ---
Patient refused to gt washed up for the night. HS care was offered and patient said they woke me up at 5:30 this morning and washed me up then. Don't feel like it tonight
--- NOTE | 2019-12-03 22:57 | NURSING ---
NEEDLE FOR PERSONAL GLUCOSE MONITOR CHANGED THIS PAULO AND PLACED IN LEFT UPPER POSTERIOR ARM
[2019-12-04 06:22] VITALS: BP 146/60; PULSE 67; RESP 15; TEMP 36.8; O2SAT 96
[2019-12-04] MEDS: Menthol/Lanolin/Calamine/Znox 113 GM Tube 1 APPLIC TOPICAL ×2 (06:23→21:41)
[2019-12-04] MEDS: Nystatin Powder 15gm Bottle 1 APPLIC TOPICAL ×2 (06:24→21:40)
[2019-12-04 06:26] VITALS: BP 146/60; PULSE 67
[2019-12-04 06:26] LABS: Bedside Glucose 154 mg/dL (70-110)
[2019-12-04] MEDS: Mesalamine 1.2 GM Tablet 2.4 GM PO (06:26)
[2019-12-04] MEDS: FLUoxetine 20 MG Capsule PO (06:26)
[2019-12-04] MEDS: Losartan Potassium 25 MG Tablet PO (06:26)
[2019-12-04] MEDS: Metoprolol(XL)Succ 25 MG Tablet PO (06:26)
[2019-12-04] MEDS: Loperamide 2 MG Capsule PO (06:26)
[2019-12-04] MEDS: Magnesium Oxide 400 MG Tablet 1000 MG PO (08:07)
[2019-12-04] MEDS: Insulin Lispro 100 UNIT/ML INSULN.PEN 8 UNIT SC ×3 (08:07→17:39)
[2019-12-04] MEDS: Multivitamins,Therapeutic Tablet 1 TABLET PO (08:08)
[2019-12-04] MEDS: Cyanocobalamin 500 MCG Tablet 1000 MCG PO (08:08)
[2019-12-04 09:05] VITALS: O2SAT 97
[2019-12-04 11:11] LABS: Bedside Glucose 165 mg/dL (70-110)
[2019-12-04 11:22] VITALS: PULSE 65; RESP 18; O2SAT 93
[2019-12-04 14:05] VITALS: BP 100/43; PULSE 69; RESP 19; TEMP 36.8; O2SAT 93
[2019-12-04] MEDS: Acetaminophen 500 MG Tablet 1000 MG PO (14:30)
[2019-12-04 16:21] LABS: Bedside Glucose 107 mg/dL (70-110)
[2019-12-04] MEDS: Warfarin 0.5 MG Tablet PO (17:40)
[2019-12-04 21:21] LABS: Bedside Glucose 129 mg/dL (70-110)
[2019-12-04] MEDS: Mirtazapine 15 MG Tablet 7.5 MG PO (21:39)
[2019-12-05 05:57] VITALS: BP 116/57; PULSE 64; RESP 16; TEMP 35.8; O2SAT 96
[2019-12-05 05:58] VITALS: BP 116/57; PULSE 64
[2019-12-05] MEDS: Loperamide 2 MG Capsule PO (05:58)
[2019-12-05] MEDS: Losartan Potassium 25 MG Tablet PO (05:58)
[2019-12-05] MEDS: Mesalamine 1.2 GM Tablet 2.4 GM PO (05:58)
[2019-12-05] MEDS: FLUoxetine 20 MG Capsule PO (05:58)
[2019-12-05] MEDS: Metoprolol(XL)Succ 25 MG Tablet PO (05:58)
[2019-12-05] MEDS: Menthol/Lanolin/Calamine/Znox 113 GM Tube 1 APPLIC TOPICAL ×2 (06:01→21:02)
[2019-12-05] MEDS: Nystatin Powder 15gm Bottle 1 APPLIC TOPICAL ×2 (06:01→21:01)
[2019-12-05 06:41] LABS: Bedside Glucose 127 mg/dL (70-110)
[2019-12-05] MEDS: Multivitamins,Therapeutic Tablet 1 TABLET PO (07:51)
[2019-12-05] MEDS: Magnesium Oxide 400 MG Tablet 1000 MG PO (07:51)
[2019-12-05] MEDS: Cyanocobalamin 500 MCG Tablet 1000 MCG PO (07:51)
[2019-12-05] MEDS: Insulin Lispro 100 UNIT/ML INSULN.PEN 8 UNIT SC ×3 (07:51→17:39)
[2019-12-05 10:50] LABS: Bedside Glucose 138 mg/dL (70-110)
[2019-12-05 16:56] LABS: Bedside Glucose 91 mg/dL (70-110)
[2019-12-05] MEDS: Warfarin 0.5 MG Tablet PO (17:39)
[2019-12-05] MEDS: Acetaminophen 500 MG Tablet 1000 MG PO (21:00)
[2019-12-05] MEDS: Mirtazapine 15 MG Tablet 7.5 MG PO (21:01)
[2019-12-05 21:16] LABS: Bedside Glucose 117 mg/dL (70-110)
[2019-12-06 04:58] VITALS: BP 120/56; PULSE 58; RESP 18; TEMP 36.3
[2019-12-06] MEDS: Losartan Potassium 25 MG Tablet PO (05:00)
[2019-12-06] MEDS: Mesalamine 1.2 GM Tablet 2.4 GM PO (05:00)
[2019-12-06] MEDS: FLUoxetine 20 MG Capsule PO (05:00)
[2019-12-06] MEDS: Menthol/Lanolin/Calamine/Znox 113 GM Tube 1 APPLIC TOPICAL ×2 (05:00→21:35)
[2019-12-06 05:01] VITALS: BP 120/56; PULSE 58
[2019-12-06] MEDS: Loperamide 2 MG Capsule PO (05:01)
[2019-12-06] MEDS: Metoprolol(XL)Succ 25 MG Tablet PO (05:01)
[2019-12-06] MEDS: Nystatin Powder 15gm Bottle 1 APPLIC TOPICAL ×2 (05:01→21:35)
[2019-12-06 06:31] LABS: Bedside Glucose 140 mg/dL (70-110)
[2019-12-06] MEDS: Cyanocobalamin 500 MCG Tablet 1000 MCG PO (08:07)
[2019-12-06] MEDS: Multivitamins,Therapeutic Tablet 1 TABLET PO (08:07)
[2019-12-06] MEDS: Insulin Lispro 100 UNIT/ML INSULN.PEN 8 UNIT SC ×3 (08:07→17:11)
[2019-12-06] MEDS: Magnesium Oxide 400 MG Tablet 1000 MG PO (08:07)
[2019-12-06] MEDS: Acetaminophen 500 MG Tablet 1000 MG PO (09:47)
[2019-12-06 10:00] VITALS: PULSE 64; RESP 16; O2SAT 92
[2019-12-06 11:05] LABS: Bedside Glucose 158 mg/dL (70-110)
[2019-12-06 14:22] VITALS: BP 138/57; PULSE 63; RESP 16; TEMP 36.3; O2SAT 92
[2019-12-06] MEDS: Warfarin 0.5 MG Tablet PO (17:11)
[2019-12-06 17:15] LABS: Bedside Glucose 185 mg/dL (70-110)
[2019-12-06 21:06] LABS: Bedside Glucose 138 mg/dL (70-110)
[2019-12-06] MEDS: Mirtazapine 15 MG Tablet 7.5 MG PO (21:34)
[2019-12-07] MEDS: Nystatin Powder 15gm Bottle 1 APPLIC TOPICAL ×2 (05:27→21:39)
[2019-12-07 05:28] VITALS: BP 142/44; PULSE 66
[2019-12-07] MEDS: Metoprolol(XL)Succ 25 MG Tablet PO (05:28)
[2019-12-07] MEDS: Loperamide 2 MG Capsule PO (05:28)
[2019-12-07] MEDS: Menthol/Lanolin/Calamine/Znox 113 GM Tube 1 APPLIC TOPICAL ×2 (05:28→21:39)
[2019-12-07] MEDS: Mesalamine 1.2 GM Tablet 2.4 GM PO (05:28)
[2019-12-07] MEDS: FLUoxetine 20 MG Capsule PO (05:28)
[2019-12-07] MEDS: Losartan Potassium 25 MG Tablet PO (05:28)
[2019-12-07 05:31] VITALS: BP 142/44; PULSE 66; RESP 18; TEMP 36.2; O2SAT 98
[2019-12-07 06:20] LABS: Bedside Glucose 138 mg/dL (70-110)
[2019-12-07 07:17] LABS: International Normalized Ratio 1.2; Prothrombin Time (Protime)PT. 14.6 SECONDS (11.7-14.9)
[2019-12-07] MEDS: Cyanocobalamin 500 MCG Tablet 1000 MCG PO (07:52)
[2019-12-07] MEDS: Insulin Lispro 100 UNIT/ML INSULN.PEN 8 UNIT SC ×2 (07:53→12:02)
[2019-12-07] MEDS: Multivitamins,Therapeutic Tablet 1 TABLET PO (07:53)
[2019-12-07] MEDS: Magnesium Oxide 400 MG Tablet 1000 MG PO (07:53)
[2019-12-07 11:10] LABS: Bedside Glucose 229 mg/dL (70-110)
[2019-12-07 14:22] VITALS: BP 99/56; PULSE 58; RESP 14; TEMP 36.8; O2SAT 91
[2019-12-07 16:35] LABS: Bedside Glucose 93 mg/dL (70-110)
--- NOTE | 2019-12-07 16:53 | NURSING ---
Addendum entered by Marta Foote 12/07/19 17:02: returned call & updated. wanting to know how much longer his would be here. updated CHECK SCALER. Original Note: phoned pt , Luc, no answer for update.
[2019-12-07] MEDS: Warfarin 1 MG, Warfarin 0.5 MG 1.5 MG PO (17:51)
[2019-12-07] MEDS: Mirtazapine 15 MG Tablet 7.5 MG PO (21:38)
[2019-12-07 21:45] VITALS: O2SAT 98
[2019-12-07 21:51] LABS: Bedside Glucose 156 mg/dL (70-110)
[2019-12-08 06:27] VITALS: BP 123/51; PULSE 62; RESP 17; TEMP 36.6; O2SAT 93
[2019-12-08 06:32] VITALS: BP 123/51; PULSE 62
[2019-12-08] MEDS: Losartan Potassium 25 MG Tablet PO (06:32)
[2019-12-08] MEDS: FLUoxetine 20 MG Capsule PO (06:32)
[2019-12-08] MEDS: Metoprolol(XL)Succ 25 MG Tablet PO (06:32)
[2019-12-08] MEDS: Mesalamine 1.2 GM Tablet 2.4 GM PO (06:32)
[2019-12-08] MEDS: Loperamide 2 MG Capsule PO (06:32)
[2019-12-08] MEDS: Nystatin Powder 15gm Bottle 1 APPLIC TOPICAL ×2 (06:33→20:46)
[2019-12-08] MEDS: Menthol/Lanolin/Calamine/Znox 113 GM Tube 1 APPLIC TOPICAL ×2 (06:33→20:46)
[2019-12-08 06:35] LABS: Bedside Glucose 147 mg/dL (70-110)
[2019-12-08] MEDS: Acetaminophen 500 MG Tablet 1000 MG PO (06:35)
[2019-12-08] MEDS: Multivitamins,Therapeutic Tablet 1 TABLET PO (08:30)
[2019-12-08] MEDS: Insulin Lispro 100 UNIT/ML INSULN.PEN SC ×3 (08:30→17:45)
[2019-12-08] MEDS: Cyanocobalamin 500 MCG Tablet 1000 MCG PO (08:30)
[2019-12-08] MEDS: Magnesium Oxide 400 MG Tablet 1000 MG PO (08:30)
[2019-12-08 11:00] LABS: Bedside Glucose 227 mg/dL (70-110)
[2019-12-08 14:11] VITALS: BP 114/69; PULSE 55; RESP 16; TEMP 36; O2SAT 93
--- NOTE | 2019-12-08 15:28 | PCM.PN.RX ---
<EnedinaEmily - Last Filed: 12/08/19 15:28> Progress Note - Pharmacy Subjective: TCU November Note Objective: Allergies omeprazole magnesium [From Prilosec] Allergy (Verified 10/31/19 09:27) Rash rofecoxib [From Vioxx] Allergy (Verified 10/31/19 09:27) Swelling sulfamethoxazole [From Bactrim] Allergy (Verified 10/31/19 09:27) Other BURNING AROUND MOUTH trimethoprim [From Bactrim] Allergy (Verified 10/31/19 09:27) Other BURNING AROUND MOUTH aspirin Adverse Reaction (Verified 10/31/19 14:19) Other sensitive b/c of colitis omeprazole [From Prilosec] Adverse Reaction (Verified 10/31/19 09:27) Nausea omonopril Allergy (Uncoded 10/31/19 09:27) Other COUGH SEASONAL ALLERGIES Allergy (Uncoded 10/31/19 09:27) PT UNSURE OF REACTION Current Medications Generic Name Dose Route Start Last Admin Trade Name Freq PRN Reason Stop Dose Admin Acetaminophen 1,000 mg 11/03/19 22:35 12/08/19 06:35 Tylenol PO 1,000 mg Q6H PRN PRN Administration Pain Score 1-10/10 Calamine/Phenol 1 applic 11/03/19 22:00 12/08/19 06:33 Calmoseptine Ointment TOPICAL 1 applicatio 0600,2200 CYNDI Administration Protocol Cyanocobalamin 1,000 mcg 11/04/19 08:00 12/08/19 08:30 Vitamin B12 PO 1,000 mcg DAILYCM CYNDI Administration Dextrose 0 gm 11/20/19 02:41 D50w Syringe IV X1 PRN Hypoglycemia Protocol Fluoxetine HCl 20 mg 11/04/19 06:00 12/08/19 06:32 Prozac PO 20 mg DAILY CYNDI Administration Glucagon 1 mg 11/20/19 02:41 IM .X1 PRN Hypoglycemia Insulin Human Lispro 5 unit 12/08/19 06:45 12/08/19 11:38 Humalog Kwikpen (Bkc) SC 5 u TIDAC CYNDI Administration Loperamide HCl 2 mg 11/04/19 06:00 12/08/19 06:32 Imodium PO 2 mg DAILY CYNDI Administration Losartan Potassium 25 mg 11/04/19 06:00 12/08/19 06:32 Cozaar PO 25 mg DAILY CYNDI Administration Magnesium Oxide 1,000 mg 11/04/19 08:00 12/08/19 08:30 Mag-Ox 400 PO 1,000 mg DAILYCM CYNDI Administration Menthol 1 applic 11/08/19 17:19 11/16/19 05:43 Bengay Vanishing Scent TOPICAL 1 applic TID PRN PRN Administration neck pain Mesalamine 2.4 gm 11/04/19 06:00 12/08/19 06:32 Lialda PO 2.4 gm DAILY CYNDI Administration Metoprolol Succinate 25 mg 11/04/19 06:00 12/08/19 06:32 Toprol Xl (Beta Mile) PO 25 mg DAILY CYNDI Administration Mirtazapine 7.5 mg 11/20/19 22:00 12/07/19 21:38 Remeron PO 7.5 mg QHS CYNDI Administration Multivitamins 1 tablet 11/04/19 08:00 12/08/19 08:30 Multivitamin PO 1 tablet DAILYCM CYNDI Administration Nystatin 1 applic 11/07/19 22:00 12/08/19 06:33 Mycostatin Powder TOPICAL 1 applicatio 0600,2200 CYNDI Administration Protocol Polyethylene Glycol 17 gm 11/04/19 08:05 11/23/19 05:21 Miralax PO 17 gm DAILY PRN Administration Constipation Sodium Chloride 10 - 40 ml 11/03/19 16:47 11/24/19 17:34 IV 10 ml UD PRN Administration SALINE FLUSH Sodium Chloride 10 - 40 ml 11/04/19 17:22 IV UD PRN SALINE FLUSH Sodium Chloride 10 - 40 ml 11/19/19 11:31 IV UD PRN SALINE FLUSH Warfarin Sodium 1 mg/ Warfarin 1.5 mg 12/07/19 17:00 12/07/19 17:51 Sodium 0.5 mg PO 1.5 mg DAILY@1700 CYNDI Administration Problem List Debility (Acute) Sleep apnea (Chronic) Urinary incontinence (Chronic) Diabetes mellitus (Chronic) Body mass index (BMI) 40.0-44.9, adult (Chronic) Venous stasis dermatitis (Chronic) Lymphedema (Chronic) Vital Signs Temp Pulse Resp BP Pulse Ox 96.8 F L 55 L 16 114/69 93 12/08/19 14:11 12/08/19 14:11 12/08/19 14:11 12/08/19 14:11 12/08/19 14:11 Oxygen Flow Rate (L/min) 2 Oxygen Delivery Method Room Air Weight: 109.911 kg Body Mass Index (BMI) 42.0 Sodium 141 mmol/L (136-145) 12/02/19 05:20 Potassium 4.8 mmol/L (3.5-5.1) 12/02/19 05:20 Chloride 109 mmol/L (98-107) H 12/02/19 05:20 Carbon Dioxide 31.0 mmol/L (21.0-32.0) 12/02/19 05:20 Anion Gap 1 (5-15) L 12/02/19 05:20 BUN 24 mg/dL (7-18) H 12/02/19 05:20 Creatinine 1.00 mg/dL (0.55-1.02) 12/02/19 05:20 Est GFR (MDRD) Af Amer 70 mL/min (>60) 12/02/19 05:20 Est GFR (MDRD) Non-Af 58 mL/min (>60) L 12/02/19 05:20 BUN/Creatinine Ratio 24.0 RATIO (10-20) H 12/02/19 05:20 Glucose 149 mg/dL (74-106) H 12/02/19 05:20 Assessment/Plan: 1. Pain: acetaminophen 1000mg PO Q6H PRN pain 1-02/19. Please continue to monitor for pain and PRN usage. 2. Hypertension: metoprolol succinate 25mg PO daily and losartan 25mg PO daily. Please continue to monitor BP (last 114/69), HR (last 62) and renal function. 3. Ulcerative colitis: mesalamine 2.4gm PO daily. Please continue to monitor for diarrhea, headache, and GI symptoms. 4. Pulmonary embolism: warfarin 1.5mg PO daily. Last INR 1.2, dose just increased. Please continue to monitor for S/S of bleeding, INR and hemoglobin. *5. Nutrition/Vitamin B12 deficiency/hypomagnesemia: multivitamin 1T PO DAILYCM, cyanocobalamin 1000mcg PO DAILYCM, magnesium oxide 1000mg PO DAILYCM. Last vitamin B12 level is from 10/2013 and last magnesium level is from 05/2016. Please consider ordering both levels now and then annually as clinically appropriate. Thanks. 6. Diabetes Mellitus II: Humalog 5 units SC TIDAC. Please continue to monitor blood glucose and for S/S of hypo/hyperglycemia. Psychotropic Medications: *1. Anxiety: fluoxetine 20mg PO daily. Please consider GDR by 04/2020 if clinically appropriate. 2. Appetite loss: mirtazapine 7.5mg PO QHS. Medication started 11/19. GDR not appropriate. Unnecessary Medications: None Bowel Regimen: Miralax 17gm PO daily PRN constipation and loperamide 2mg PO daily. Please continue to monitor for constipation and diarrhea. Date of Note:: 12/08/19 - Provider Comments Provider responsibility: Provider responsible to enter orders to implement recommendations <Binu Dugan Chi - Last Filed: 12/08/19 16:04> Progress Note - Pharmacy Subjective: [] Objective: Allergies omeprazole magnesium [From Prilosec] Allergy (Verified 10/31/19 09:27) Rash rofecoxib [From Vioxx] Allergy (Verified 10/31/19 09:27) Swelling sulfamethoxazole [From Bactrim] Allergy (Verified 10/31/19 09:27) Other BURNING AROUND MOUTH trimethoprim [From Bactrim] Allergy (Verified 10/31/19 09:27) Other BURNING AROUND MOUTH aspirin Adverse Reaction (Verified 10/31/19 14:19) Other sensitive b/c of colitis omeprazole [From Prilosec] Adverse Reaction (Verified 10/31/19 09:27) Nausea omonopril Allergy (Uncoded 10/31/19 09:27) Other COUGH SEASONAL ALLERGIES Allergy (Uncoded 10/31/19 09:27) PT UNSURE OF REACTION Current Medications Generic Name Dose Route Start Last Admin Trade Name Freq PRN Reason Stop Dose Admin Acetaminophen 1,000 mg 11/03/19 22:35 12/08/19 06:35 Tylenol PO 1,000 mg Q6H PRN PRN Administration Pain Score 1-02/19 Calamine/Phenol 1 applic 11/03/19 22:00 12/08/19 06:33 Calmoseptine Ointment TOPICAL 1 applicatio 0600,2200 CYNDI Administration Protocol Cyanocobalamin 1,000 mcg 11/04/19 08:00 12/08/19 08:30 Vitamin B12 PO 1,000 mcg DAILYCM CYNDI Administration Dextrose 0 gm 11/20/19 02:41 D50w Syringe IV X1 PRN Hypoglycemia Protocol Fluoxetine HCl 20 mg 11/04/19 06:00 12/08/19 06:32 Prozac PO 20 mg DAILY CYNDI Administration Glucagon 1 mg 11/20/19 02:41 IM .X1 PRN Hypoglycemia Insulin Human Lispro 5 unit 12/08/19 06:45 12/08/19 11:38 Humalog Kwikpen (Bkc) SC 5 u TIDAC CYNDI Administration Loperamide HCl 2 mg 11/04/19 06:00 12/08/19 06:32 Imodium PO 2 mg DAILY CYNDI Administration Losartan Potassium 25 mg 11/04/19 06:00 12/08/19 06:32 Cozaar PO 25 mg DAILY CYNDI Administration Magnesium Oxide 1,000 mg 11/04/19 08:00 12/08/19 08:30 Mag-Ox 400 PO 1,000 mg DAILYCM CYNDI Administration Menthol 1 applic 11/08/19 17:19 11/16/19 05:43 Bengay Vanishing Scent TOPICAL 1 applic TID PRN PRN Administration neck pain Mesalamine 2.4 gm 11/04/19 06:00 12/08/19 06:32 Lialda PO 2.4 gm DAILY CYNDI Administration Metoprolol Succinate 25 mg 11/04/19 06:00 12/08/19 06:32 Toprol Xl (Beta Mile) PO 25 mg DAILY CYNDI Administration Mirtazapine 7.5 mg 11/20/19 22:00 12/07/19 21:38 Remeron PO 7.5 mg QHS CYNDI Administration Multivitamins 1 tablet 11/04/19 08:00 12/08/19 08:30 Multivitamin PO 1 tablet DAILY CYNDI Administration Nystatin 1 applic 11/07/19 22:00 12/08/19 06:33 Mycostatin Powder TOPICAL 1 applicatio 0600,2200 CYNDI Administration Protocol Polyethylene Glycol 17 gm 11/04/19 08:05 11/23/19 05:21 Miralax PO 17 gm DAILY PRN Administration Constipation Sodium Chloride 10 - 40 ml 11/03/19 16:47 11/24/19 17:34 IV 10 ml UD PRN Administration SALINE FLUSH Sodium Chloride 10 - 40 ml 11/04/19 17:22 IV UD PRN SALINE FLUSH Sodium Chloride 10 - 40 ml 11/19/19 11:31 IV UD PRN SALINE FLUSH Warfarin Sodium 1 mg/ Warfarin 1.5 mg 12/07/19 17:00 12/07/19 17:51 Sodium 0.5 mg PO 1.5 mg DAILY@1700 [facility] Administration Problem List Debility (Acute) Sleep apnea (Chronic) Urinary incontinence (Chronic) Diabetes mellitus (Chronic) Body mass index (BMI) 40.0-44.9, adult (Chronic) Venous stasis dermatitis (Chronic) Lymphedema (Chronic) Vital Signs Temp Pulse Resp BP Pulse Ox 96.8 F L 55 L 16 114/69 93 12/08/19 14:11 12/08/19 14:11 12/08/19 14:11 12/08/19 14:11 12/08/19 14:11 Oxygen Flow Rate (L/min) 2 Oxygen Delivery Method Room Air Weight: 109.911 kg Body Mass Index (BMI) 42.0 Sodium 141 mmol/L (136-145) 12/02/19 05:20 Potassium 4.8 mmol/L (3.5-5.1) 12/02/19 05:20 Chloride 109 mmol/L (98-107) H 12/02/19 05:20 Carbon Dioxide 31.0 mmol/L (21.0-32.0) 12/02/19 05:20 Anion Gap 1 (5-15) L 12/02/19 05:20 BUN 24 mg/dL (7-18) H 12/02/19 05:20 Creatinine 1.00 mg/dL (0.55-1.02) 12/02/19 05:20 Est GFR (MDRD) Af Amer 70 mL/min (>60) 12/02/19 05:20 Est GFR (MDRD) Non-Af 58 mL/min (>60) L 12/02/19 05:20 BUN/Creatinine Ratio 24.0 RATIO (10-20) H 12/02/19 05:20 Glucose 149 mg/dL (74-106) H 12/02/19 05:20 Assessment/Plan: Psychotropic Medications: Unnecessary Medications: Bowel Regimen: - Provider Comments Provider responsibility: Provider responsible to enter orders to implement recommendations Provider Comments to Recommendations by Pharmacy: Agree
[2019-12-08 16:46] LABS: Bedside Glucose 157 mg/dL (70-110)
[2019-12-08] MEDS: Warfarin 1 MG, Warfarin 0.5 MG 1.5 MG PO (17:46)
[2019-12-08] MEDS: Mirtazapine 15 MG Tablet 7.5 MG PO (20:43)
[2019-12-08 21:26] LABS: Bedside Glucose 177 mg/dL (70-110)
[2019-12-09 05:34] LABS: Absolute Lymphocyte Count 1.36 X10^3/uL (0.83-4.51); Absolute Neutrophil Count 3.5 X10^3/uL (2.0-7.7); Basophil# 0.02 X10^3/uL; Basophil% 0.4 % (0-1); Eosinophil# 0.24 X10^3/uL; Eosinophils% 4.3 % (0-5); Hematocrit 35.8 % (37-47); Hemoglobin 10.6 g/dL (12.0-15.0); Lymphocyte # 1.36 X10^3/ul (4.0); Lymphocyte % 24.3 % (19-41); Mean Corp Hgb Conc 29.6 g/dL (32-36); Mean Corpuscular Hgb 29.2 pg (27.0-32.0); Mean Corpuscular Volume 98.6 fL (81-99); Mean Platelet Vol. 10.3 fl (6.2-12.0); Monocyte# 0.47 X10^3/uL; Monocyte% 8.4 % (0-10); NRBC Flagged by Analyzer 0 % (0-5); Neutrophil # 3.48 X10^3/uL (2.7-7.7); Neutrophil % 62.1 % (47-70); Platelet Count 233 K/mm3 (150-450); RBC Distribution Width CV 14.2 % (11.6-14.6); RBC Distribution Width SD 51.1 fl (35.1-43.9); Red Blood Count 3.63 M/mm3 (4.2-5.4); White Blood Count 5.6 K/mm3 (4.4-11.0)
[2019-12-09 05:43] VITALS: BP 129/64; PULSE 65
[2019-12-09] MEDS: Metoprolol(XL)Succ 25 MG Tablet PO (05:43)
[2019-12-09] MEDS: Nystatin Powder 15gm Bottle 1 APPLIC TOPICAL ×2 (05:43→20:55)
[2019-12-09] MEDS: FLUoxetine 20 MG Capsule PO (05:43)
[2019-12-09] MEDS: Loperamide 2 MG Capsule PO (05:43)
[2019-12-09] MEDS: Losartan Potassium 25 MG Tablet PO (05:43)
[2019-12-09] MEDS: Mesalamine 1.2 GM Tablet 2.4 GM PO (05:43)
[2019-12-09] MEDS: Menthol/Lanolin/Calamine/Znox 113 GM Tube 1 APPLIC TOPICAL ×2 (05:44→20:54)
[2019-12-09 05:45] VITALS: RESP 18; TEMP 36.4; O2SAT 92
[2019-12-09 05:53] LABS: Anion Gap 0 (5-15); BUN 22 mg/dL (7-18); BUN/Creat Ratio 19.5 RATIO (10-20); Calcium,Total 8.7 mg/dL (8.5-10.1); Chloride 108 mmol/L (98-107); Creatinine, Serum 1.13 mg/dL (0.55-1.02); EST Glomerular Filtration Rate 50 mL/min (>60); Est Glom Filt Rate - Afr Amer 61 mL/min (>60); Estimated Creatinine Clearance 41.51 ml/min; Glucose 150 mg/dL (74-106); Potassium 4.4 mmol/L (3.5-5.1); Sodium Level 140 mmol/L (136-145)
[2019-12-09 06:31] LABS: Bedside Glucose 151 mg/dL (70-110)
[2019-12-09 07:14] VITALS: O2SAT 90
[2019-12-09] MEDS: Insulin Lispro 100 UNIT/ML INSULN.PEN SC ×3 (08:06→17:14)
[2019-12-09] MEDS: Magnesium Oxide 400 MG Tablet 1000 MG PO (08:07)
[2019-12-09] MEDS: Multivitamins,Therapeutic Tablet 1 TABLET PO (08:07)
[2019-12-09] MEDS: Cyanocobalamin 500 MCG Tablet 1000 MCG PO (08:07)
[2019-12-09] MEDS: Acetaminophen 500 MG Tablet 1000 MG PO (08:09)
[2019-12-09 11:10] LABS: Bedside Glucose 174 mg/dL (70-110)
[2019-12-09 13:43] VITALS: BP 114/55; PULSE 62; RESP 16; TEMP 35.9; O2SAT 97
[2019-12-09 16:50] LABS: Bedside Glucose 176 mg/dL (70-110)
[2019-12-09] MEDS: Warfarin 1 MG, Warfarin 0.5 MG 1.5 MG PO (17:15)
[2019-12-09] MEDS: Mirtazapine 15 MG Tablet 7.5 MG PO (20:53)
[2019-12-09 21:30] LABS: Bedside Glucose 149 mg/dL (70-110)
[2019-12-10 05:01] VITALS: BP 146/69; PULSE 72; RESP 18; TEMP 36.1; O2SAT 98
[2019-12-10] MEDS: FLUoxetine 20 MG Capsule PO (05:01)
[2019-12-10] MEDS: Mesalamine 1.2 GM Tablet 2.4 GM PO (05:01)
[2019-12-10 05:02] VITALS: BP 146/69; PULSE 72
[2019-12-10] MEDS: Menthol/Lanolin/Calamine/Znox 113 GM Tube 1 APPLIC TOPICAL ×2 (05:02→20:17)
[2019-12-10] MEDS: Nystatin Powder 15gm Bottle 1 APPLIC TOPICAL ×2 (05:02→20:18)
[2019-12-10] MEDS: Loperamide 2 MG Capsule PO (05:02)
[2019-12-10] MEDS: Metoprolol(XL)Succ 25 MG Tablet PO (05:02)
[2019-12-10] MEDS: Losartan Potassium 25 MG Tablet PO (05:02)
[2019-12-10 05:48] LABS: International Normalized Ratio 1.4; Prothrombin Time (Protime)PT. 16.2 SECONDS (11.7-14.9)
[2019-12-10 06:35] LABS: Bedside Glucose 149 mg/dL (70-110)
[2019-12-10] MEDS: Insulin Lispro 100 UNIT/ML INSULN.PEN 8 UNIT SC ×3 (08:25→17:44)
[2019-12-10] MEDS: Multivitamins,Therapeutic Tablet 1 TABLET PO (08:26)
[2019-12-10] MEDS: Cyanocobalamin 500 MCG Tablet 1000 MCG PO (08:26)
[2019-12-10] MEDS: Magnesium Oxide 400 MG Tablet 1000 MG PO (08:26)
[2019-12-10] MEDS: Acetaminophen 500 MG Tablet 1000 MG PO (08:28)
[2019-12-10 10:59] VITALS: PULSE 65; RESP 18; O2SAT 96
--- NOTE | 2019-12-10 12:03 | NURSING ---
blood sugar 167 via pt monitor.
[2019-12-10 14:18] VITALS: BP 96/52; PULSE 65; RESP 18; TEMP 36.6; O2SAT 97
[2019-12-10 16:51] LABS: Bedside Glucose 172 mg/dL (70-110)
[2019-12-10] MEDS: Jantoven 2 MG Tablet PO (17:43)
[2019-12-10] MEDS: Mirtazapine 15 MG Tablet 7.5 MG PO (20:16)
[2019-12-10 21:40] LABS: Bedside Glucose 177 mg/dL (70-110)
[2019-12-11 06:13] VITALS: BP 156/60; PULSE 72; RESP 16; TEMP 36.3; O2SAT 97
[2019-12-11] MEDS: Nystatin Powder 15gm Bottle 1 APPLIC TOPICAL ×2 (06:14→21:00)
[2019-12-11] MEDS: Menthol/Lanolin/Calamine/Znox 113 GM Tube 1 APPLIC TOPICAL ×2 (06:14→21:00)
[2019-12-11 06:15] VITALS: BP 156/60; PULSE 72
[2019-12-11] MEDS: Mesalamine 1.2 GM Tablet 2.4 GM PO (06:15)
[2019-12-11] MEDS: Losartan Potassium 25 MG Tablet PO (06:15)
[2019-12-11] MEDS: Metoprolol(XL)Succ 25 MG Tablet PO (06:15)
[2019-12-11] MEDS: FLUoxetine 20 MG Capsule PO (06:15)
[2019-12-11] MEDS: Loperamide 2 MG Capsule PO (06:15)
[2019-12-11 06:16] LABS: Bedside Glucose 151 mg/dL (70-110)
[2019-12-11 07:42] VITALS: O2SAT 97
[2019-12-11] MEDS: Magnesium Oxide 400 MG Tablet 1000 MG PO (08:10)
[2019-12-11] MEDS: Cyanocobalamin 500 MCG Tablet 1000 MCG PO (08:11)
[2019-12-11] MEDS: Multivitamins,Therapeutic Tablet 1 TABLET PO (08:11)
[2019-12-11] MEDS: Insulin Lispro 100 UNIT/ML INSULN.PEN 8 UNIT SC ×3 (08:11→18:15)
[2019-12-11] MEDS: Acetaminophen 500 MG Tablet 1000 MG PO (08:15)
[2019-12-11 11:06] LABS: Bedside Glucose 187 mg/dL (70-110)
[2019-12-11 13:35] VITALS: BP 106/58; PULSE 59; RESP 16; TEMP 36.8; O2SAT 96
[2019-12-11 16:56] LABS: Bedside Glucose 114 mg/dL (70-110)
[2019-12-11] MEDS: Jantoven 2 MG Tablet PO (18:15)
[2019-12-11] MEDS: Mirtazapine 15 MG Tablet 7.5 MG PO (20:59)
[2019-12-11 21:30] LABS: Bedside Glucose 166 mg/dL (70-110)
[2019-12-12 05:33] VITALS: BP 113/58; PULSE 79; RESP 16; TEMP 36.8; O2SAT 90
[2019-12-12] MEDS: Menthol/Lanolin/Calamine/Znox 113 GM Tube 1 APPLIC TOPICAL ×2 (05:35→20:47)
[2019-12-12] MEDS: Mesalamine 1.2 GM Tablet 2.4 GM PO (05:35)
[2019-12-12 05:36] VITALS: BP 113/58; PULSE 79
[2019-12-12] MEDS: Losartan Potassium 25 MG Tablet PO (05:36)
[2019-12-12] MEDS: Metoprolol(XL)Succ 25 MG Tablet PO (05:36)
[2019-12-12] MEDS: Loperamide 2 MG Capsule PO (05:36)
[2019-12-12] MEDS: FLUoxetine 20 MG Capsule PO (05:36)
[2019-12-12] MEDS: Nystatin Powder 15gm Bottle 1 APPLIC TOPICAL ×2 (05:38→20:47)
[2019-12-12 06:31] LABS: Bedside Glucose 140 mg/dL (70-110)
[2019-12-12] MEDS: Multivitamins,Therapeutic Tablet 1 TABLET PO (08:05)
[2019-12-12] MEDS: Cyanocobalamin 500 MCG Tablet 1000 MCG PO (08:05)
[2019-12-12] MEDS: Insulin Lispro 100 UNIT/ML INSULN.PEN 8 UNIT SC ×3 (08:05→17:51)
[2019-12-12] MEDS: Magnesium Oxide 400 MG Tablet 1000 MG PO (08:05)
[2019-12-12 11:22] VITALS: PULSE 67; RESP 18; O2SAT 91
[2019-12-12 11:35] LABS: Bedside Glucose 139 mg/dL (70-110)
[2019-12-12 16:26] LABS: Bedside Glucose 150 mg/dL (70-110)
[2019-12-12] MEDS: Jantoven 2 MG Tablet PO (17:35)
[2019-12-12 18:26] VITALS: BP 138/66; PULSE 67; RESP 18; TEMP 36.7; O2SAT 91
[2019-12-12] MEDS: Mirtazapine 15 MG Tablet 7.5 MG PO (20:48)
[2019-12-12 21:20] LABS: Bedside Glucose 145 mg/dL (70-110)
[2019-12-13 05:57] VITALS: BP 132/57; PULSE 64; RESP 18; TEMP 36.6; O2SAT 94
[2019-12-13] MEDS: Menthol/Lanolin/Calamine/Znox 113 GM Tube 1 APPLIC TOPICAL ×2 (05:58→20:49)
[2019-12-13] MEDS: Nystatin Powder 15gm Bottle 1 APPLIC TOPICAL ×2 (05:58→20:48)
[2019-12-13 05:59] VITALS: BP 132/57; PULSE 64
[2019-12-13] MEDS: Mesalamine 1.2 GM Tablet 2.4 GM PO (05:59)
[2019-12-13] MEDS: Metoprolol(XL)Succ 25 MG Tablet PO (05:59)
[2019-12-13] MEDS: Losartan Potassium 25 MG Tablet PO (05:59)
[2019-12-13] MEDS: FLUoxetine 20 MG Capsule PO (05:59)
[2019-12-13] MEDS: Loperamide 2 MG Capsule PO (06:00)
[2019-12-13 06:21] LABS: Bedside Glucose 148 mg/dL (70-110)
[2019-12-13] MEDS: Insulin Lispro 100 UNIT/ML INSULN.PEN 8 UNIT SC ×3 (08:14→17:21)
[2019-12-13] MEDS: Multivitamins,Therapeutic Tablet 1 TABLET PO (08:14)
[2019-12-13] MEDS: Cyanocobalamin 500 MCG Tablet 1000 MCG PO (08:14)
[2019-12-13] MEDS: Magnesium Oxide 400 MG Tablet 1000 MG PO (08:14)
[2019-12-13 11:01] LABS: Bedside Glucose 212 mg/dL (70-110)
[2019-12-13 14:33] VITALS: BP 98/44; PULSE 58; RESP 16; TEMP 36.6; O2SAT 95
[2019-12-13 16:41] LABS: Bedside Glucose 113 mg/dL (70-110)
[2019-12-13] MEDS: Jantoven 2 MG Tablet PO (16:41)
[2019-12-13] MEDS: Acetaminophen 500 MG Tablet 1000 MG PO (20:46)
[2019-12-13] MEDS: Mirtazapine 15 MG Tablet 7.5 MG PO (20:47)
[2019-12-13 21:31] LABS: Bedside Glucose 145 mg/dL (70-110)
[2019-12-14 05:12] VITALS: BP 128/50; PULSE 67
[2019-12-14] MEDS: Losartan Potassium 25 MG Tablet PO (05:12)
[2019-12-14] MEDS: Loperamide 2 MG Capsule PO (05:12)
[2019-12-14] MEDS: Metoprolol(XL)Succ 25 MG Tablet PO (05:12)
[2019-12-14] MEDS: Menthol/Lanolin/Calamine/Znox 113 GM Tube 1 APPLIC TOPICAL ×2 (05:12→20:38)
[2019-12-14] MEDS: FLUoxetine 20 MG Capsule PO (05:12)
[2019-12-14] MEDS: Mesalamine 1.2 GM Tablet 2.4 GM PO (05:12)
[2019-12-14] MEDS: Nystatin Powder 15gm Bottle 1 APPLIC TOPICAL ×2 (05:13→20:37)
[2019-12-14 05:16] VITALS: BP 128/50; PULSE 67; RESP 16; TEMP 36.4; O2SAT 96
[2019-12-14 06:00] LABS: International Normalized Ratio 1.6; Prothrombin Time (Protime)PT. 18.9 SECONDS (11.7-14.9)
[2019-12-14 06:25] LABS: Bedside Glucose 147 mg/dL (70-110)
[2019-12-14 06:53] VITALS: O2SAT 98
[2019-12-14] MEDS: Magnesium Oxide 400 MG Tablet 1000 MG PO (07:59)
[2019-12-14] MEDS: Multivitamins,Therapeutic Tablet 1 TABLET PO (08:00)
[2019-12-14] MEDS: Cyanocobalamin 500 MCG Tablet 1000 MCG PO (08:00)
[2019-12-14] MEDS: Insulin Lispro 100 UNIT/ML INSULN.PEN 8 UNIT SC ×3 (08:01→17:27)
[2019-12-14] MEDS: Acetaminophen 500 MG Tablet 1000 MG PO (08:05)
[2019-12-14 11:00] LABS: Bedside Glucose 219 mg/dL (70-110)
[2019-12-14 15:29] VITALS: BP 108/54; PULSE 62; RESP 18; TEMP 36.8; O2SAT 90
[2019-12-14 16:25] LABS: Bedside Glucose 151 mg/dL (70-110)
[2019-12-14] MEDS: Jantoven 2 MG Tablet PO (17:27)
--- NOTE | 2019-12-14 20:37 | PN_ITS ---
Subjective: Resident seen for regulatory visit. She is sitting in wheelchair, in her room. She has no new problems, concerns, issues, complaints. She asked me to stop Mirtazapine as her appetite is now too good, otherwise, she is progressing with therapy, and happy with her progress. Vitals/I&O's: Vital Signs Temp Pulse Resp BP Pulse Ox 98.2 F 62 18 108/54 L 90 12/14/19 15:29 12/14/19 15:29 12/14/19 15:29 12/14/19 15:29 12/14/19 15:29 Oxygen Flow Rate (L/min) 2 Oxygen Delivery Method Room Air Weight: 109.911 kg Body Mass Index (BMI) 42.0 Intake and Output for Last 24 Hours 12/12/19 12/13/19 12/14/19 23:59 23:59 23:59 Intake Total 840 / 840 980 / 980 600 / 600 Output Total 2100 / 2100 1475 / 1475 900 / 900 Balance -1260 / -1260 -495 / -495 -300 / -300 Laboratory Results 12/13/19 21:16: POC Glucose 145 H 12/14/19 05:30: PT 18.9 H, INR 1.6 12/14/19 06:11: POC Glucose 147 H 12/14/19 10:49: POC Glucose 219 H 12/14/19 16:18: POC Glucose 151 H 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) Edema of both legs (Chronic) Diabetes mellitus, type II (Chronic) Hypertension (Chronic) Hyperlipidemia (Chronic) Morbid obesity (Chronic) Chronic Venous Stasis (Chronic) PVD (peripheral vascular disease) (Chronic) Overflow stress urinary incontinence in female (Chronic) COPD (chronic obstructive pulmonary disease) (Chronic) Chronic respiratory failure (Chronic) Cellulitis (Chronic) Chronic acquired lymphedema (Chronic) Allergies omeprazole magnesium [From Prilosec] Allergy (Verified 10/31/19 09:27) Rash rofecoxib [From Vioxx] Allergy (Verified 10/31/19 09:27) Swelling sulfamethoxazole [From Bactrim] Allergy (Verified 10/31/19 09:27) Other BURNING AROUND MOUTH trimethoprim [From Bactrim] Allergy (Verified 10/31/19 09:27) Other BURNING AROUND MOUTH aspirin Adverse Reaction (Verified 10/31/19 14:19) Other sensitive b/c of colitis omeprazole [From Prilosec] Adverse Reaction (Verified 10/31/19 09:27) Nausea omonopril Allergy (Uncoded 10/31/19 09:27) Other COUGH SEASONAL ALLERGIES Allergy (Uncoded 10/31/19 09:27) PT UNSURE OF REACTION Home Medications: Ambulatory Orders Medication Instructions Recorded Cyanocobalamin (Vitamin B-12) 1,000 mcg PO DAILY 10/31/19 [Vitamin B-12] Fluoxetine [Prozac] 20 mg PO DAILY 10/31/19 Furosemide 2 tab PO BID 10/31/19 Iron,Carbonyl [Iron Chews] 10 mg PO DAILY 10/31/19 Loperamide [Imodium] 2 mg PO DAILY 10/31/19 Losartan Potassium [Cozaar] 25 mg PO DAILY 10/31/19 Magnesium Oxide [Magnesium] 1,000 mg PO DAILY 10/31/19 Mesalamine [Lialda] 2 tab PO DAILY 10/31/19 Metoprolol Succinate 25 mg PO DAILY 10/31/19 Multivitamins,Therapeutic 1 tab PO DAILY 10/31/19 [Multivitamin] Warfarin Sodium [Coumadin] 1 mg PO SUTUTH 10/31/19 Warfarin [Coumadin] 2 mg PO MOWEFRSA 10/31/19 Ciprofloxacin [Cipro] 500 mg PO BID 11/03/19 Surgical History: cataract, cholecystectomy, total knee arthroplasty, - - L carpal tunnel surgery, IVC Filter 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 Lives: Spouse/ Significant Other Smoking Status: Former smoker Tobacco Use: Cigarettes Alcohol: None Drugs: None - *Family History Maternal History Items: - - Arthritis Paternal History Items: Heart Disease Capacity - Capacity Assessment Tool Can the patient make a choice & communicate that choice?: Yes Can the patient understand benefits, risks and alternatives?: Yes Can the patient make a logical, rational choice?: Yes Is the choice the patient makes consistent w/ their values?: Yes Is there an impending, emergent risk to the patient?: No Does the patient have an Advance Directive?: Yes Is there a Surrogate Available?: Yes i.e. HCPOA: Yes i.e. close relative (spouse, child, parent, sibling)?: Yes Review of Systems Constitutional: Denies: Chills, Fever, Weight Change HEENT: Denies: Head Aches, Sinus Congestion, Sinus Drainage Cardiovascular: Denies: Chest Pain, Palpitations Respiratory: Denies: Cough, Shortness of breath at rest, Sputum production Gastrointestinal: Denies: Abdominal Pain, Nausea, Vomiting Genitourinary: Denies: Dysuria Musculoskeletal: Denies: Joint Pain, Joint Tenderness Skin: Denies: Rash, Wounds Neurological: Denies: Numbness, Tingling, Focal weakness Psychiatric: Denies: Anxiety, Depression, Homicidal Ideations, Suicidal Id eations Hematologic/ Lymphatic: Denies: Easy Bruising, Easy Bleeding Patient Problems: Active and Suspected Problems Debility (Acute) - Physical Exam Vitals/I&O's: Vital Signs Temp Pulse Resp BP Pulse Ox 98.2 F 62 18 108/54 L 90 12/14/19 15:29 12/14/19 15:29 12/14/19 15:29 12/14/19 15:29 12/14/19 15:29 Oxygen Flow Rate (L/min) 2 Oxygen Delivery Method Room Air Weight: 109.911 kg Body Mass Index (BMI) 42.0 Intake and Output for Last 24 Hours 12/12/19 12/13/19 12/14/19 23:59 23:59 23:59 Intake Total 840 / 840 980 / 980 600 / 600 Output Total 2099 / 2099 1475 / 1475 900 / 900 Balance -1260 / -1260 -495 / -495 -300 / -300 General: Alert, Oriented x3, Cooperative HEENT: Atraumatic, PERRLA, EOMI, Normocephalic Neck: Supple, No JVD, Negative Carotid Bruits Lungs: Clear to auscultation, Normal air movement Cardiovascular: Regular rate, No murmurs Abdomen: Bowel Sounds Present, Soft, Non Tender Extremities: No edema, Capillary Refill Less than 3 Seconds Skin: No rashes, No breakdown Musculoskeletal: No Tenderness to Palpation of Joints or Extremities Neurological: Cranial nerves II-XII grossly intact Psych/Mental Status: Normal Affect, Appropriate Laboratory Results 12/13/19 21:16: POC Glucose 145 H 12/14/19 05:30: PT 18.9 H, INR 1.6 12/14/19 06:11: POC Glucose 147 H 12/14/19 10:49: POC Glucose 219 H 12/14/19 16:18: POC Glucose 151 H Current Medications Acetaminophen (Tylenol) 1,000 mg PO Q6H PRN PRN PRN Reason: Pain Score 1-02/19 Last Admin: 12/14/19 08:05 Dose: 1,000 mg Documented by: Calamine/Phenol (Calmoseptine Ointment) 1 applic TOPICAL 0600,2200 [facility]; Protocol Last Admin: 12/14/19 05:12 Dose: 1 applicatio Documented by: Cyanocobalamin (Vitamin B[facility]) [facility] Last Admin: 12/14/19 08:00 Dose: 1,000 mcg Documented by: Dextrose (D50w Syringe) 0 gm IV X1 PRN; Protocol PRN Reason: Hypoglycemia Fluoxetine HCl (Prozac) 20 mg PO DAILY [facility] Last Admin: 12/14/19 05:12 Dose: 20 mg Documented by: Glucagon () 1 mg IM .X1 PRN PRN Reason: Hypoglycemia Insulin Human Lispro (Humalog Kwikpen (Bkc)) 8 unit SC TIDAC [facility] Last Admin: 12/14/19 17:27 Dose: 8 units Documented by: Loperamide HCl (Imodium) 2 mg PO DAILY [facility] Last Admin: 12/14/19 05:12 Dose: 2 mg Documented by: Losartan Potassium (Cozaar) 25 mg PO DAILY [facility] Last Admin: 12/14/19 05:12 Dose: 25 mg Documented by: Magnesium Oxide (Mag-Ox 400) [facility] Last Admin: 12/14/19 07:59 Dose: 1,000 mg Documented by: Menthol (Bengay Vanishing Scent) 1 applic TOPICAL TID PRN PRN PRN Reason: neck pain Last Admin: 11/16/19 05:43 Dose: 1 applic Documented by: Mesalamine (Lialda) 2.4 gm PO DAILY [facility] Last Admin: 12/14/19 05:12 Dose: 2.4 gm Documented by: Metoprolol Succinate (Toprol Xl (Beta Mile)) 25 mg PO DAILY [facility] Last Admin: 12/14/19 05:12 Dose: 25 mg Documented by: Multivitamins (Multivitamin) 1 tablet PO DAILYCM [facility] Last Admin: 12/14/19 08:00 Dose: 1 tablet Documented by: Nystatin (Mycostatin Powder) 1 applic TOPICAL 0600,2200 [facility]; Protocol Last Admin: 12/14/19 05:13 Dose: 1 applicatio Documented by: Polyethylene Glycol (Miralax) 17 gm PO DAILY PRN PRN Reason: Constipation Last Admin: 11/23/19 05:21 Dose: 17 gm Documented by: Sodium Chloride () 10 - 40 ml IV UD PRN PRN Reason: SALINE FLUSH Last Admin: 11/24/19 17:34 Dose: 10 ml Documented by: Sodium Chloride () 10 - 40 ml IV UD PRN PRN Reason: SALINE FLUSH Sodium Chloride () 10 - 40 ml IV UD PRN PRN Reason: SALINE FLUSH Warfarin Sodium (Jantoven) 2 mg PO DAILY@1700 [facility] Last Admin: 12/14/19 17:27 Dose: 2 mg Documented by: Assessment/Plan All Active Problems Failure to thrive in adult (Acute) UTI (urinary tract infection) (Acute) Debility (Acute) Cellulitis of left lower extremity (Acute) Non-pressure chronic ulcer of left calf with fat layer exposed (Resolved) Generalized weakness (Acute) Bilateral lower leg cellulitis (Acute) 74 year old female with below past medical history hospitalized for weakness secondary to complicated urinary tract infection, cellulitis of buttocks, wounds, admitted to TCU with debility, here for rehabilitation, strengthening, wound care, prior to discharge home with . * Debility - PT/OT. * Pain - Tylenol 1000MG Q6H PRN pain (1-10). * Bowel - Loperamide 2MG daily, Miralax 17GM daily PRN. * Adult immunization - Administer Prevnar 13, Pneumovax 23, Fluzone as appropriate. * DVT prophylaxis - Not necessary, already on warfarin. * Vitamin B12 deficiency - B12 1000MCG daily. * Anxiety - Fluoxetine 20MG daily. * Nutrition - MVI daily. * Hypertension - Metoprolol succinate 25MG daily, Losartan 25MG daily. * Hypomagnesemia - Magnesium Oxide 1000MG daily. * Skin irritation - Calmoseptine twice daily, Bengay topical TID. * Ulcerative Colitis - Mesalamine 2.4GM daily. * Tinea Corporis - Nystatin powder topical twice daily. * Pulmonary Embolism - INR 1.6, Warfarin increased to 2MG daily, follow INR Mondays, . * Diabetes Mellitus II - Humalog 8 units TIDAC, Glucagon 1MG IM x 1 dose PRN hypoglycemia. * Appetite loss - Resolved, stop Mirtazapine.
[2019-12-14] MEDS: Mirtazapine 15 MG Tablet 7.5 MG PO (20:38)
[2019-12-14 21:31] LABS: Bedside Glucose 171 mg/dL (70-110)
[2019-12-15 06:08] VITALS: BP 117/62; PULSE 71; RESP 18; TEMP 36.4; O2SAT 93
[2019-12-15] MEDS: Mesalamine 1.2 GM Tablet 2.4 GM PO (06:10)
[2019-12-15] MEDS: FLUoxetine 20 MG Capsule PO (06:10)
[2019-12-15] MEDS: Menthol/Lanolin/Calamine/Znox 113 GM Tube 1 APPLIC TOPICAL ×2 (06:10→20:35)
[2019-12-15] MEDS: Nystatin Powder 15gm Bottle 1 APPLIC TOPICAL ×2 (06:10→20:36)
[2019-12-15 06:11] VITALS: BP 117/62; PULSE 71
[2019-12-15] MEDS: Metoprolol(XL)Succ 25 MG Tablet PO (06:11)
[2019-12-15] MEDS: Loperamide 2 MG Capsule PO (06:11)
[2019-12-15] MEDS: Losartan Potassium 25 MG Tablet PO (06:11)
[2019-12-15 06:25] LABS: Bedside Glucose 150 mg/dL (70-110)
[2019-12-15] MEDS: Multivitamins,Therapeutic Tablet 1 TABLET PO (08:24)
[2019-12-15] MEDS: Cyanocobalamin 500 MCG Tablet 1000 MCG PO (08:24)
[2019-12-15] MEDS: Insulin Lispro 100 UNIT/ML INSULN.PEN 8 UNIT SC ×3 (08:24→17:35)
[2019-12-15] MEDS: Magnesium Oxide 400 MG Tablet 1000 MG PO (08:24)
[2019-12-15] MEDS: Acetaminophen 500 MG Tablet 1000 MG PO (08:26)
[2019-12-15 11:31] LABS: Bedside Glucose 201 mg/dL (70-110)
--- NOTE | 2019-12-15 13:46 | CASEMGMT ---
Social Work Spoke with pt regarding DC plans. Pt anticipating DC home with . Discussed safety and assistance needed. Pt will be calling private duty aides to assist in the home, and feels she will continue to progress and will DC home. Pt chose [facility]. Will make referral at time of DC . No DME needs. Will continue to follow. Nuha Ribeiro, COOKING SHOW HOST WELDING PANTOGRAPH OPERATOR
[2019-12-15 14:07] VITALS: BP 112/55; PULSE 60; RESP 14; TEMP 36.4; O2SAT 92
[2019-12-15 14:46] VITALS: O2SAT 92
[2019-12-15 16:25] LABS: Bedside Glucose 123 mg/dL (70-110)
[2019-12-15] MEDS: Jantoven 2 MG Tablet PO (17:35)
[2019-12-15 21:26] LABS: Bedside Glucose 152 mg/dL (70-110)
[2019-12-16 04:00] VITALS: BP 125/58; PULSE 60; RESP 18; TEMP 36.8; O2SAT 98
[2019-12-16 05:52] LABS: Absolute Lymphocyte Count 1.55 X10^3/uL (0.83-4.51); Absolute Neutrophil Count 4.2 X10^3/uL (2.0-7.7); Basophil# 0.02 X10^3/uL; Basophil% 0.3 % (0-1); Eosinophil# 0.24 X10^3/uL; Eosinophils% 3.7 % (0-5); Hematocrit 34.5 % (37-47); Hemoglobin 10.5 g/dL (12.0-15.0); Lymphocyte # 1.55 X10^3/ul (4.0); Lymphocyte % 23.7 % (19-41); Mean Corp Hgb Conc 30.4 g/dL (32-36); Mean Corpuscular Hgb 30.3 pg (27.0-32.0); Mean Corpuscular Volume 99.4 fL (81-99); Mean Platelet Vol. 10.2 fl (6.2-12.0); Monocyte# 0.53 X10^3/uL; Monocyte% 8.1 % (0-10); NRBC Flagged by Analyzer 0 % (0-5); Neutrophil # 4.18 X10^3/uL (2.7-7.7); Neutrophil % 63.7 % (47-70); Platelet Count 189 K/mm3 (150-450); RBC Distribution Width CV 14.6 % (11.6-14.6); RBC Distribution Width SD 51.8 fl (35.1-43.9); Red Blood Count 3.47 M/mm3 (4.2-5.4); White Blood Count 6.6 K/mm3 (4.4-11.0)
[2019-12-16 06:12] LABS: Anion Gap 1 (5-15); BUN 22 mg/dL (7-18); BUN/Creat Ratio 21.8 RATIO (10-20); Calcium,Total 8.7 mg/dL (8.5-10.1); Chloride 109 mmol/L (98-107); Creatinine, Serum 1.01 mg/dL (0.55-1.02); EST Glomerular Filtration Rate 57 mL/min (>60); Est Glom Filt Rate - Afr Amer 69 mL/min (>60); Estimated Creatinine Clearance 46.44 ml/min; Glucose 149 mg/dL (74-106); Potassium 4.9 mmol/L (3.5-5.1); Sodium Level 142 mmol/L (136-145)
[2019-12-16 06:20] LABS: Bedside Glucose 136 mg/dL (70-110)
[2019-12-16] MEDS: Menthol/Lanolin/Calamine/Znox 113 GM Tube 1 APPLIC TOPICAL ×2 (06:22→19:48)
[2019-12-16] MEDS: Nystatin Powder 15gm Bottle 1 APPLIC TOPICAL ×2 (06:22→19:49)
[2019-12-16 06:23] VITALS: BP 125/58; PULSE 60
[2019-12-16] MEDS: Metoprolol(XL)Succ 25 MG Tablet PO (06:23)
[2019-12-16] MEDS: Losartan Potassium 25 MG Tablet PO (06:23)
[2019-12-16] MEDS: FLUoxetine 20 MG Capsule PO (06:23)
[2019-12-16] MEDS: Loperamide 2 MG Capsule PO (06:23)
[2019-12-16] MEDS: Mesalamine 1.2 GM Tablet 2.4 GM PO (06:23)
[2019-12-16] MEDS: Insulin Lispro 100 UNIT/ML INSULN.PEN 8 UNIT SC ×3 (08:16→18:24)
[2019-12-16] MEDS: Cyanocobalamin 500 MCG Tablet 1000 MCG PO (08:16)
[2019-12-16] MEDS: Multivitamins,Therapeutic Tablet 1 TABLET PO (08:16)
[2019-12-16] MEDS: Magnesium Oxide 400 MG Tablet 1000 MG PO (08:16)
[2019-12-16] MEDS: Acetaminophen 500 MG Tablet 1000 MG PO ×2 (08:21→15:41)
[2019-12-16 11:05] LABS: Bedside Glucose 150 mg/dL (70-110)
[2019-12-16 12:44] VITALS: BP 112/66; PULSE 61; RESP 18; TEMP 36.6; O2SAT 91
[2019-12-16] MEDS: Jantoven 2 MG Tablet PO (15:41)
[2019-12-16 16:45] LABS: Bedside Glucose 108 mg/dL (70-110)
[2019-12-16 21:10] LABS: Bedside Glucose 197 mg/dL (70-110)
[2019-12-17 05:46] LABS: International Normalized Ratio 1.9; Prothrombin Time (Protime)PT. 21.7 SECONDS (11.7-14.9)
[2019-12-17 06:12] VITALS: BP 123/60; PULSE 66; RESP 16; TEMP 36.2; O2SAT 92
[2019-12-17 06:14] VITALS: BP 123/60; PULSE 66
[2019-12-17] MEDS: Menthol/Lanolin/Calamine/Znox 113 GM Tube 1 APPLIC TOPICAL ×2 (06:14→21:46)
[2019-12-17] MEDS: Metoprolol(XL)Succ 25 MG Tablet PO (06:14)
[2019-12-17] MEDS: Nystatin Powder 15gm Bottle 1 APPLIC TOPICAL ×2 (06:14→21:47)
[2019-12-17] MEDS: Losartan Potassium 25 MG Tablet PO (06:14)
[2019-12-17] MEDS: Loperamide 2 MG Capsule PO (06:15)
[2019-12-17] MEDS: Mesalamine 1.2 GM Tablet 2.4 GM PO (06:15)
[2019-12-17] MEDS: FLUoxetine 20 MG Capsule PO (06:15)
[2019-12-17 06:26] LABS: Bedside Glucose 119 mg/dL (70-110)
[2019-12-17] MEDS: Multivitamins,Therapeutic Tablet 1 TABLET PO (07:58)
[2019-12-17] MEDS: Insulin Lispro 100 UNIT/ML INSULN.PEN 8 UNIT SC ×3 (07:58→17:32)
[2019-12-17] MEDS: Cyanocobalamin 500 MCG Tablet 1000 MCG PO (07:58)
[2019-12-17] MEDS: Acetaminophen 500 MG Tablet 1000 MG PO (07:58)
[2019-12-17] MEDS: Magnesium Oxide 400 MG Tablet 1000 MG PO (07:58)
[2019-12-17 11:16] LABS: Bedside Glucose 189 mg/dL (70-110)
[2019-12-17 13:55] VITALS: BP 120/53; PULSE 60; RESP 20; TEMP 36.7; O2SAT 92
[2019-12-17 16:35] LABS: Bedside Glucose 137 mg/dL (70-110)
[2019-12-17] MEDS: Jantoven 2 MG Tablet PO (17:32)
[2019-12-17 21:15] LABS: Bedside Glucose 138 mg/dL (70-110)
[2019-12-18 06:25] VITALS: BP 122/66; PULSE 60; RESP 18; TEMP 36.6; O2SAT 97
[2019-12-18 06:28] VITALS: BP 122/66; PULSE 60
[2019-12-18] MEDS: FLUoxetine 20 MG Capsule PO (06:28)
[2019-12-18] MEDS: Metoprolol(XL)Succ 25 MG Tablet PO (06:28)
[2019-12-18] MEDS: Loperamide 2 MG Capsule PO (06:28)
[2019-12-18] MEDS: Mesalamine 1.2 GM Tablet 2.4 GM PO (06:28)
[2019-12-18] MEDS: Losartan Potassium 25 MG Tablet PO (06:29)
[2019-12-18] MEDS: Nystatin Powder 15gm Bottle 1 APPLIC TOPICAL ×2 (06:30→20:19)
[2019-12-18] MEDS: Menthol/Lanolin/Calamine/Znox 113 GM Tube 1 APPLIC TOPICAL ×2 (06:30→20:19)
[2019-12-18] MEDS: Acetaminophen 500 MG Tablet 1000 MG PO (06:33)
[2019-12-18 07:01] LABS: Bedside Glucose 144 mg/dL (70-110)
[2019-12-18 07:04] VITALS: O2SAT 94
[2019-12-18] MEDS: Cyanocobalamin 500 MCG Tablet 1000 MCG PO (09:20)
[2019-12-18] MEDS: Magnesium Oxide 400 MG Tablet 1000 MG PO (09:21)
[2019-12-18] MEDS: Insulin Lispro 100 UNIT/ML INSULN.PEN 8 UNIT SC ×3 (09:21→17:29)
[2019-12-18] MEDS: Multivitamins,Therapeutic Tablet 1 TABLET PO (09:21)
[2019-12-18 11:05] LABS: Bedside Glucose 226 mg/dL (70-110)
[2019-12-18 14:21] VITALS: BP 140/70; PULSE 54; RESP 18; TEMP 36.3; O2SAT 95
[2019-12-18 14:27] VITALS: PULSE 54; RESP 18; O2SAT 95
[2019-12-18 16:41] LABS: Bedside Glucose 127 mg/dL (70-110)
[2019-12-18] MEDS: Jantoven 2 MG Tablet PO (17:29)
[2019-12-18 21:26] LABS: Bedside Glucose 149 mg/dL (70-110)
[2019-12-19 05:20] VITALS: BP 116/58; PULSE 59; RESP 14; TEMP 36.6; O2SAT 96
[2019-12-19] MEDS: Mesalamine 1.2 GM Tablet 2.4 GM PO (05:24)
[2019-12-19] MEDS: FLUoxetine 20 MG Capsule PO (05:24)
[2019-12-19] MEDS: Losartan Potassium 25 MG Tablet PO (05:25)
[2019-12-19] MEDS: Menthol/Lanolin/Calamine/Znox 113 GM Tube 1 APPLIC TOPICAL ×2 (05:25→21:12)
[2019-12-19] MEDS: Loperamide 2 MG Capsule PO (05:25)
[2019-12-19] MEDS: Nystatin Powder 15gm Bottle 1 APPLIC TOPICAL ×2 (05:25→21:12)
[2019-12-19 05:26] VITALS: PULSE 62
[2019-12-19] MEDS: Metoprolol(XL)Succ 25 MG Tablet PO (05:26)
[2019-12-19 06:46] LABS: Bedside Glucose 138 mg/dL (70-110)
[2019-12-19] MEDS: Insulin Lispro 100 UNIT/ML INSULN.PEN 8 UNIT SC ×3 (08:38→17:47)
[2019-12-19] MEDS: Magnesium Oxide 400 MG Tablet 1000 MG PO (08:38)
[2019-12-19] MEDS: Multivitamins,Therapeutic Tablet 1 TABLET PO (08:40)
[2019-12-19] MEDS: Cyanocobalamin 500 MCG Tablet 1000 MCG PO (08:40)
[2019-12-19] MEDS: Acetaminophen 500 MG Tablet 1000 MG PO (08:48)
[2019-12-19 11:56] LABS: Bedside Glucose 177 mg/dL (70-110)
[2019-12-19] MEDS: Jantoven 2 MG Tablet PO (16:39)
[2019-12-19 16:50] LABS: Bedside Glucose 131 mg/dL (70-110)
[2019-12-19 18:37] VITALS: BP 126/64; PULSE 63; RESP 18; TEMP 36.3; O2SAT 95
[2019-12-19 21:45] LABS: Bedside Glucose 121 mg/dL (70-110)
[2019-12-20 06:21] LABS: Bedside Glucose 140 mg/dL (70-110)
[2019-12-20 06:27] VITALS: BP 153/78; PULSE 64; RESP 16; TEMP 36.3; O2SAT 94
[2019-12-20] MEDS: Loperamide 2 MG Capsule PO (06:28)
[2019-12-20] MEDS: Nystatin Powder 15gm Bottle 1 APPLIC TOPICAL ×2 (06:28→21:46)
[2019-12-20] MEDS: Menthol/Lanolin/Calamine/Znox 113 GM Tube 1 APPLIC TOPICAL ×2 (06:28→21:46)
[2019-12-20 06:29] VITALS: BP 153/78; PULSE 64
[2019-12-20] MEDS: Mesalamine 1.2 GM Tablet 2.4 GM PO (06:29)
[2019-12-20] MEDS: Losartan Potassium 25 MG Tablet PO (06:29)
[2019-12-20] MEDS: Metoprolol(XL)Succ 25 MG Tablet PO (06:29)
[2019-12-20] MEDS: FLUoxetine 20 MG Capsule PO (06:29)
[2019-12-20] MEDS: Magnesium Oxide 400 MG Tablet 1000 MG PO (08:30)
[2019-12-20] MEDS: Insulin Lispro 100 UNIT/ML INSULN.PEN 8 UNIT SC ×3 (08:30→18:09)
[2019-12-20] MEDS: Cyanocobalamin 500 MCG Tablet 1000 MCG PO (08:31)
[2019-12-20] MEDS: Multivitamins,Therapeutic Tablet 1 TABLET PO (08:31)
[2019-12-20] MEDS: Acetaminophen 500 MG Tablet 1000 MG PO (08:33)
[2019-12-20 11:41] LABS: Bedside Glucose 168 mg/dL (70-110)
[2019-12-20 14:36] VITALS: BP 112/60; PULSE 71; RESP 16; TEMP 36.8; O2SAT 91
[2019-12-20] MEDS: Jantoven 2 MG Tablet PO (16:12)
[2019-12-20 17:16] LABS: Bedside Glucose 169 mg/dL (70-110)
[2019-12-20 21:55] LABS: Bedside Glucose 160 mg/dL (70-110)
--- NOTE | 2019-12-20 23:26 | PCA ---
pt washed up but didnt want to change into night clothes
[2019-12-21 06:02] LABS: International Normalized Ratio 2.4; Prothrombin Time (Protime)PT. 25.5 SECONDS (11.7-14.9)
[2019-12-21 06:13] VITALS: BP 153/99; PULSE 68; RESP 16; TEMP 36.6; O2SAT 97
[2019-12-21 06:14] VITALS: BP 153/99; PULSE 68
[2019-12-21] MEDS: Metoprolol(XL)Succ 25 MG Tablet PO (06:14)
[2019-12-21] MEDS: Losartan Potassium 25 MG Tablet PO (06:15)
[2019-12-21] MEDS: Loperamide 2 MG Capsule PO (06:15)
[2019-12-21] MEDS: FLUoxetine 20 MG Capsule PO (06:15)
[2019-12-21] MEDS: Menthol/Lanolin/Calamine/Znox 113 GM Tube 1 APPLIC TOPICAL ×2 (06:15→21:17)
[2019-12-21] MEDS: Mesalamine 1.2 GM Tablet 2.4 GM PO (06:15)
[2019-12-21] MEDS: Nystatin Powder 15gm Bottle 1 APPLIC TOPICAL ×2 (06:15→21:19)
[2019-12-21 06:26] LABS: Bedside Glucose 134 mg/dL (70-110)
[2019-12-21] MEDS: Magnesium Oxide 400 MG Tablet 1000 MG PO (08:00)
[2019-12-21] MEDS: Cyanocobalamin 500 MCG Tablet 1000 MCG PO (08:00)
[2019-12-21] MEDS: Insulin Lispro 100 UNIT/ML INSULN.PEN 8 UNIT SC ×3 (08:00→18:09)
[2019-12-21] MEDS: Multivitamins,Therapeutic Tablet 1 TABLET PO (08:00)
[2019-12-21] MEDS: Acetaminophen 500 MG Tablet 1000 MG PO (10:44)
[2019-12-21 10:55] LABS: Bedside Glucose 202 mg/dL (70-110)
[2019-12-21 14:18] VITALS: BP 125/61; PULSE 65; RESP 17; TEMP 36.8; O2SAT 93
[2019-12-21 16:35] LABS: Bedside Glucose 156 mg/dL (70-110)
[2019-12-21] MEDS: Jantoven 2 MG Tablet PO (16:52)
[2019-12-21 21:31] LABS: Bedside Glucose 166 mg/dL (70-110)
[2019-12-22 05:12] VITALS: BP 124/59; PULSE 66; RESP 16; TEMP 36.6; O2SAT 96
[2019-12-22 05:14] VITALS: BP 124/59; PULSE 66
[2019-12-22] MEDS: FLUoxetine 20 MG Capsule PO (05:14)
[2019-12-22] MEDS: Losartan Potassium 25 MG Tablet PO (05:14)
[2019-12-22] MEDS: Mesalamine 1.2 GM Tablet 2.4 GM PO (05:14)
[2019-12-22] MEDS: Metoprolol(XL)Succ 25 MG Tablet PO (05:14)
[2019-12-22] MEDS: Loperamide 2 MG Capsule PO (05:14)
[2019-12-22] MEDS: Nystatin Powder 15gm Bottle 1 APPLIC TOPICAL ×2 (05:15→20:09)
[2019-12-22] MEDS: Menthol/Lanolin/Calamine/Znox 113 GM Tube 1 APPLIC TOPICAL ×2 (05:15→20:09)
[2019-12-22] MEDS: Acetaminophen 500 MG Tablet 1000 MG PO (05:19)
[2019-12-22 06:31] LABS: Bedside Glucose 163 mg/dL (70-110)
[2019-12-22] MEDS: Cyanocobalamin 500 MCG Tablet 1000 MCG PO (08:33)
[2019-12-22] MEDS: Magnesium Oxide 400 MG Tablet 1000 MG PO (08:33)
[2019-12-22] MEDS: Insulin Lispro 100 UNIT/ML INSULN.PEN 8 UNIT SC ×3 (08:37→17:51)
[2019-12-22] MEDS: Multivitamins,Therapeutic Tablet 1 TABLET PO (08:38)
[2019-12-22 11:26] LABS: Bedside Glucose 205 mg/dL (70-110)
--- NOTE | 2019-12-22 13:52 | CASEMGMT ---
Social Work Spoke with pt to inform her of DC date 12/28. Pt agreeable. Pt requested [facility]. Referral made for PT/OT/ST/PROJECT PRODUCT MANAGER. No DME needs. to transport pt. Plan: DC home with 12/28 with [facility] PT/OT/ST/PROJECT PRODUCT MANAGER Nuha Ribeiro, PREETI SUAZOW
[2019-12-22 14:51] VITALS: BP 108/52; PULSE 54; RESP 16; TEMP 36; O2SAT 96
[2019-12-22 16:30] LABS: Bedside Glucose 131 mg/dL (70-110)
[2019-12-22] MEDS: Jantoven 2 MG Tablet PO (17:52)
--- NOTE | 2019-12-22 21:35 | DCINST_ITS ---
- Discharge Diagnoses Current Active Problems: Current Active and Chronic Problems Debility (Acute) Sleep apnea (Chronic) Urinary incontinence (Chronic) Diabetes mellitus (Chronic) Body mass index (BMI) 40.0-44.9, adult (Chronic) Venous stasis dermatitis (Chronic) Lymphedema (Chronic) You will use the following diet at home:: No restrictions, Regular Your food should be the consistency of: Regular Your liquids should be the consistency of: Regular/Thin Discharge Activity: Return to Normal Activity, May Shower, Use Walker Weight Bearing Status: Weight bearing as tolerated Call your doctor if you observe: Fever of 101 or Higher, Inability to urinate, Inability to have a bowel movement, Shortness of breath, Chest pain, Uncontrolled pain Allergies/Adverse Reactions: Allergies omeprazole magnesium [From Prilosec] Allergy (Verified 10/31/19 09:27) Rash rofecoxib [From Vioxx] Allergy (Verified 10/31/19 09:27) Swelling sulfamethoxazole [From Bactrim] Allergy (Verified 10/31/19 09:27) Other BURNING AROUND MOUTH trimethoprim [From Bactrim] Allergy (Verified 10/31/19 09:27) Other BURNING AROUND MOUTH aspirin Adverse Reaction (Verified 10/31/19 14:19) Other sensitive b/c of colitis omeprazole [From Prilosec] Adverse Reaction (Verified 10/31/19 09:27) Nausea omonopril Allergy (Uncoded 10/31/19 09:27) Other COUGH SEASONAL ALLERGIES Allergy (Uncoded 10/31/19 09:27) PT UNSURE OF REACTION Medications to take at Discharge Cyanocobalamin (Vitamin B-12) [Vitamin B-12] 1,000 mcg PO DAILY 10/31/19 Fluoxetine [Prozac] 20 mg PO DAILY 10/31/19 Loperamide [Imodium] 2 mg PO DAILY 10/31/19 Losartan Potassium [Cozaar] 25 mg PO DAILY 10/31/19 Magnesium Oxide [Magnesium] 1,000 mg PO DAILY 10/31/19 Mesalamine [Lialda] 2 tab PO DAILY 10/31/19 Metoprolol Succinate 25 mg PO DAILY 10/31/19 Multivitamins,Therapeutic [Multivitamin] 1 tab PO DAILY 10/31/19 Acetaminophen [Tylenol] 1,000 mg PO Q6H PRN PRN tablet 12/22/19 Insulin Lispro [Humalog KwikPen] 8 unit SUBCUT TIDAC #1 insuln.pen 12/22/19 Menthol [Bengay Vanishing Scent] 1 applic TOPICAL TID PRN PRN tube 12/22/19 Menthol/Lanolin/Calamine/Znox [Calmoseptine Ointment] 1 applic TOPICAL 0600,2200 tube 12/22/19 Nystatin Powder [Mycostatin Powder] 1 applic TOPICAL 0600,2200 bottle 12/22/19 Warfarin [Coumadin] 2 mg PO DAILY@1700 #30 tab 12/22/19 The following prescriptions were given: Warfarin [Coumadin] 2 mg PO DAILY@1700 #30 tab Transmission Status: Pending to [facility] Insulin Lispro [Humalog KwikPen] 8 unit SUBCUT TIDAC #1 insuln.pen Transmission Status: Pending to [facility] Orders to be completed after discharge: Prothrombin Time w/INR Time Frame: 1 Day, Facility: [facility], Location: Laboratory Primary Care Physician: Nasreen Jarrett MD [Primary Care Provider] - Please follow up with your Primary Care Physician in: 1 week. Test Results: Test results from this visit will be discussed in further detail at your follow- up appointment, if applicable. Please Follow Up With: Dr. Marin ([facility]) When: 2 weeks. Proposed Discharge Date: 12/29/19
[2019-12-22 21:36] LABS: Bedside Glucose 157 mg/dL (70-110)
--- NOTE | 2019-12-22 21:36 | PCM.DC.SUM ---
Discharge Date and Diagnosis - Problem List Patient Problems: Active and Suspected Problems Debility (Acute) Date of Admission: 11/03/19 Date of Discharge: 12/29/19 - Primary Discharge Diagnosis Acute Problems: Active Problems Debility (Acute) - Secondary Discharge Diagnosis Chronic Problems: Chronic Problems Decubitus ulcer of left buttock (Chronic) Decubitus ulcer of right buttock (Chronic) Ulcer of left lower extremity with fat layer exposed (Chronic) Ulcer of right lower extremity with fat layer exposed (Chronic) Sleep apnea (Chronic) Urinary incontinence (Chronic) Diabetes mellitus (Chronic) Body mass index (BMI) 40.0-44.9, adult (Chronic) Venous stasis dermatitis (Chronic) Lymphedema (Chronic) Venous insufficiency (chronic) (peripheral) (Chronic) 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) Edema of both legs (Chronic) Diabetes mellitus, type II (Chronic) Hypertension (Chronic) Hyperlipidemia (Chronic) Morbid obesity (Chronic) Chronic Venous Stasis (Chronic) PVD (peripheral vascular disease) (Chronic) Overflow stress urinary incontinence in female (Chronic) COPD (chronic obstructive pulmonary disease) (Chronic) Chronic respiratory failure (Chronic) Cellulitis (Chronic) Chronic acquired lymphedema (Chronic) Hospital Course and Treatment Imaging Results: 11/03/19 16:46 Diet: Cardiac: Calorie-Controlled Food consistency:: Regular Liquid Consistency:: Regular/Thin Is pt able to select menu?: Yes How many daily calories?: 2000 calorie Clinical Impression(s) from Imaging Studies Cervical Spine X-Ray 11/11/19 09:20 IMPRESSION: Loss of the normal cervical lordosis. Multilevel spondylosis and disc space narrowing. Electronically Signed: Sebas Polk, at 10:14 EDT , Service support , KUB X-Ray 11/19/19 11:17 IMPRESSION: Nonspecific bowel gas pattern. Electronically Signed: Sebas Polk at 15:41 EDT , Service support , Labs (Last 48 Hours) 12/20/19 12/21/19 12/21/19 21:52 05:20 06:18 PT 25.5 H INR 2.4 POC Glucose 160 H 134 H 12/21/19 12/21/19 12/21/19 10:46 16:21 21:26 PT INR POC Glucose 202 H 156 H 166 H 12/22/19 12/22/19 12/22/19 06:18 11:14 16:17 PT INR POC Glucose 163 H 205 H 131 H 12/22/19 21:12 PT INR POC Glucose 157 H Operations: None Procedures: None Summary of Care Provided: The patient is a 74 year old Female with below past medical history hospitalized for weakness secondary to complicated urinary tract infection, cellulitis of buttocks, wounds, admitted to TCU with debility, here for rehabilitation, strengthening, wound care, prior to discharge home with . Discharge home with , [facility] PT/OT/ST/FILM RENTAL CLERK. Patient Problems: Active and Suspected Problems Debility (Acute) - Physical Exam Vitals/I&O's: Vital Signs Temp Pulse Resp BP Pulse Ox 96.8 F L 54 L 16 108/52 L 96 12/22/19 14:51 12/22/19 14:51 12/22/19 14:51 12/22/19 14:51 12/22/19 14:51 Oxygen Flow Rate (L/min) 2 Oxygen Delivery Method Room Air Weight: 109.117 kg Body Mass Index (BMI) 42.0 Intake and Output for Last 24 Hours 12/20/19 12/21/19 12/22/19 23:59 23:59 23:59 Intake Total 960 / 960 960 / 960 720 / 720 Output Total 3250 / 3250 2050 / 2050 1900 / 1900 Balance -2290 / -2290 -1090 / -1090 -1180 / -1180 Laboratory Results 12/22/19 06:18: POC Glucose 163 H 12/22/19 11:14: POC Glucose 205 H 12/22/19 16:17: POC Glucose 131 H 12/22/19 21:12: POC Glucose 157 H Current Medications Acetaminophen (Tylenol) 1,000 mg PO Q6H PRN PRN PRN Reason: Pain Score 1-10/10 Last Admin: 12/22/19 05:19 Dose: 1,000 mg Documented by: Calamine/Phenol (Calmoseptine Ointment) 1 applic TOPICAL 0600,2200 [facility]; Protocol Last Admin: 12/22/19 20:09 Dose: 1 applicatio Documented by: Cyanocobalamin ([facility]itamin B[facility]) [facility] Last Admin: 12/22/19 08:33 Dose: 1,000 mcg Documented by: Dextrose (D50w Syringe) 0 gm IV X1 PRN; Protocol PRN Reason: Hypoglycemia Fluoxetine HCl (Prozac) 20 mg PO DAILY [facility] Last Admin: 12/22/19 05:14 Dose: 20 mg Documented by: Glucagon () 1 mg IM .X1 PRN PRN Reason: Hypoglycemia Insulin Human Lispro (Humalog Kwikpen (Bkc)) 8 unit SC TIDAC [facility] Last Admin: 12/22/19 17:51 Dose: 8 units Documented by: Loperamide HCl (Imodium) 2 mg PO DAILY [facility] Last Admin: 12/22/19 05:14 Dose: 2 mg Documented by: Losartan Potassium (Cozaar) 25 mg PO DAILY [facility] Last Admin: 12/22/19 05:14 Dose: 25 mg Documented by: Magnesium Oxide (Mag-Ox 400) [facility] Last Admin: 12/22/19 08:33 Dose: 1,000 mg Documented by: Menthol (Bengay Vanishing Scent) 1 applic TOPICAL TID PRN PRN PRN Reason: neck pain Last Admin: 11/16/19 05:43 Dose: 1 applic Documented by: Mesalamine (Lialda) 2.4 gm PO DAILY [facility] Last Admin: 12/22/19 05:14 Dose: 2.4 gm Documented by: Metoprolol Succinate (Toprol Xl (Beta Mile)) 25 mg PO DAILY [facility] Last Admin: 12/22/19 05:14 Dose: 25 mg Documented by: Multivitamins (Multivitamin) [facility] Last Admin: 12/22/19 08:38 Dose: 1 tablet Documented by: Nystatin (Mycostatin Powder) 1 applic TOPICAL 599,2200 [facility]; Protocol Last Admin: 12/22/19 20:09 Dose: 1 applicatio Documented by: Polyethylene Glycol (Miralax) 17 gm PO DAILY PRN PRN Reason: Constipation Last Admin: 11/23/19 05:21 Dose: 17 gm Documented by: Sodium Chloride () 10 - 40 ml IV UD PRN PRN Reason: SALINE FLUSH Last Admin: 11/24/19 17:34 Dose: 10 ml Documented by: Sodium Chloride () 10 - 40 ml IV UD PRN PRN Reason: SALINE FLUSH Sodium Chloride () 10 - 40 ml IV UD PRN PRN Reason: SALINE FLUSH Warfarin Sodium (Jantoven) 2 mg PO DAILY@1700 [facility] Last Admin: 12/22/19 17:52 Dose: 2 mg Documented by: Discharge Diet: No Restrictions Discharge Activity: Return to Normal Activity, May Shower, Use Walker Weight Bearing Status: Weight bearing as tolerated Call your doctor if you observe: Fever of 101 or Higher, Inability to urinate, Inability to have a bowel movement, Shortness of breath, Chest pain, Uncontrolled pain Home Medications: Medications to take at Discharge Cyanocobalamin (Vitamin B-12) [Vitamin B-12] 1,000 mcg PO DAILY 10/31/19 Fluoxetine [Prozac] 20 mg PO DAILY 10/31/19 Loperamide [Imodium] 2 mg PO DAILY 10/31/19 Losartan Potassium [Cozaar] 25 mg PO DAILY 10/31/19 Magnesium Oxide [Magnesium] 1,000 mg PO DAILY 10/31/19 Mesalamine [Lialda] 2 tab PO DAILY 10/31/19 Metoprolol Succinate 25 mg PO DAILY 10/31/19 Multivitamins,Therapeutic [Multivitamin] 1 tab PO DAILY 10/31/19 Acetaminophen [Tylenol] 1,000 mg PO Q6H PRN PRN tablet 12/22/19 Insulin Lispro [Humalog KwikPen] 8 unit SUBCUT TIDAC #1 insuln.pen 12/22/19 Menthol [Bengay Vanishing Scent] 1 applic TOPICAL TID PRN PRN tube 12/22/19 Menthol/Lanolin/Calamine/Znox [Calmoseptine Ointment] 1 applic TOPICAL 0600,2200 tube 12/22/19 Nystatin Powder [Mycostatin Powder] 1 applic TOPICAL 0600,2200 bottle 12/22/19 Warfarin [Coumadin] 2 mg PO DAILY@1700 #30 tab 12/22/19 Following Prescriptions Were Given to Patient: Warfarin [Coumadin] 2 mg PO DAILY@1700 #30 tab Transmission Status: Pending to [facility] [address] Insulin Lispro [Humalog KwikPen] 8 unit SUBCUT TIDAC #1 insuln.pen Transmission Status: Pending to [id number] Orders: Prothrombin Time w/INR Time Frame: 1 Day, Facility: [facility], Location: Laboratory Primary Care Physician: Nasreen Jarrett MD [Primary Care Provider] - Please follow up with your Primary Care Physician in: 1 week. Please Follow Up With: Dr. Marin ([email or web address] [email or web address]) When: 2 weeks. Disposition: Home with Home Health Minutes spent on discharge:: 35 Patient Condition:: Stable Medical Necessity - Tobacco Use Smoking Status: Former smoker Tobacco Use: Cigarettes Meaningful Use Info Meaningful Use Diagnoses (Choose all that apply): None applicable
[2019-12-23 05:21] VITALS: BP 117/54; PULSE 56; RESP 18; TEMP 36.9; O2SAT 94
[2019-12-23] MEDS: Mesalamine 1.2 GM Tablet 2.4 GM PO (05:26)
[2019-12-23] MEDS: FLUoxetine 20 MG Capsule PO (05:26)
[2019-12-23 05:27] VITALS: PULSE 56
[2019-12-23] MEDS: Losartan Potassium 25 MG Tablet PO (05:27)
[2019-12-23] MEDS: Metoprolol(XL)Succ 25 MG Tablet PO (05:27)
[2019-12-23] MEDS: Loperamide 2 MG Capsule PO (05:27)
[2019-12-23] MEDS: Nystatin Powder 15gm Bottle 1 APPLIC TOPICAL ×2 (05:30→20:54)
[2019-12-23] MEDS: Menthol/Lanolin/Calamine/Znox 113 GM Tube 1 APPLIC TOPICAL ×2 (05:30→20:54)
[2019-12-23 06:01] LABS: Absolute Lymphocyte Count 1.53 X10^3/uL (0.83-4.51); Absolute Neutrophil Count 4.6 X10^3/uL (2.0-7.7); Basophil# 0.02 X10^3/uL; Basophil% 0.3 % (0-1); Eosinophil# 0.23 X10^3/uL; Eosinophils% 3.4 % (0-5); Hematocrit 34.8 % (37-47); Hemoglobin 10.4 g/dL (12.0-15.0); Lymphocyte # 1.53 X10^3/ul (4.0); Lymphocyte % 22.5 % (19-41); Mean Corp Hgb Conc 29.9 g/dL (32-36); Mean Corpuscular Volume 96.9 fL (81-99); Mean Platelet Vol. 10.9 fl (6.2-12.0); Monocyte# 0.45 X10^3/uL; Monocyte% 6.6 % (0-10); NRBC Flagged by Analyzer 0 % (0-5); Neutrophil # 4.56 X10^3/uL (2.7-7.7); Neutrophil % 66.9 % (47-70); Platelet Count 206 K/mm3 (150-450); RBC Distribution Width CV 14.1 % (11.6-14.6); RBC Distribution Width SD 49.9 fl (35.1-43.9); Red Blood Count 3.59 M/mm3 (4.2-5.4); White Blood Count 6.8 K/mm3 (4.4-11.0)
[2019-12-23 06:15] LABS: Bedside Glucose 138 mg/dL (70-110)
[2019-12-23 06:50] LABS: Anion Gap 3 (5-15); BUN 24 mg/dL (7-18); BUN/Creat Ratio 23.5 RATIO (10-20); Calcium,Total 8.5 mg/dL (8.5-10.1); Chloride 108 mmol/L (98-107); Creatinine, Serum 1.02 mg/dL (0.55-1.02); EST Glomerular Filtration Rate 56 mL/min (>60); Est Glom Filt Rate - Afr Amer 68 mL/min (>60); Estimated Creatinine Clearance 45.98 ml/min; Glucose 132 mg/dL (74-106); Potassium 4.4 mmol/L (3.5-5.1); Sodium Level 142 mmol/L (136-145)
[2019-12-23] MEDS: Multivitamins,Therapeutic Tablet 1 TABLET PO (08:01)
[2019-12-23] MEDS: Cyanocobalamin 500 MCG Tablet 1000 MCG PO (08:01)
[2019-12-23] MEDS: Insulin Lispro 100 UNIT/ML INSULN.PEN 8 UNIT SC ×3 (08:01→17:26)
[2019-12-23] MEDS: Magnesium Oxide 400 MG Tablet 1000 MG PO (08:01)
[2019-12-23] MEDS: Acetaminophen 500 MG Tablet 1000 MG PO ×2 (08:07→20:53)
[2019-12-23 11:45] LABS: Bedside Glucose 153 mg/dL (70-110)
[2019-12-23 14:01] VITALS: BP 103/43; PULSE 68; RESP 16; TEMP 36.3; O2SAT 93
--- NOTE | 2019-12-23 15:05 | CHAPLAIN ---
Type of Pastoral Visit _x__ Initial Visit ___ Follow-up Visit ___ On-call Visit ___ General Patient Visit ___ Spiritual Assessment ___ Family Conference ___ Bereavement ___ Rapid Response ___ Code Blue ___ Other (describe below) Pastoral Care Referral From ___ Patient ___ Family ___ Nurse ___ Physician ___ Ratchet Setter ___ Director Manufacturing Engineering _x__ Other (describe below) Sacrament/Intervention _x__ Active listening ___ Anointing ___ Jewish ___ Bereavement ___ Communion ___ Priti exploration ___ ___ Life review ___ Prayer ___ Reconciliation ___ Sacrament of Sick ___ Supportive presence ___ Wedding ___ Other (describe below) Pastoral Comments
[2019-12-23 17:20] LABS: Bedside Glucose 141 mg/dL (70-110)
[2019-12-23] MEDS: Jantoven 2 MG Tablet PO (17:26)
[2019-12-23 21:06] LABS: Bedside Glucose 186 mg/dL (70-110)
[2019-12-24 06:13] VITALS: BP 137/60; PULSE 65; RESP 16; TEMP 36.2; O2SAT 98
[2019-12-24 06:14] VITALS: BP 137/60; PULSE 65
[2019-12-24] MEDS: Loperamide 2 MG Capsule PO (06:14)
[2019-12-24] MEDS: Losartan Potassium 25 MG Tablet PO (06:14)
[2019-12-24] MEDS: Mesalamine 1.2 GM Tablet 2.4 GM PO (06:14)
[2019-12-24] MEDS: Metoprolol(XL)Succ 25 MG Tablet PO (06:14)
[2019-12-24] MEDS: FLUoxetine 20 MG Capsule PO (06:14)
[2019-12-24] MEDS: Menthol/Lanolin/Calamine/Znox 113 GM Tube 1 APPLIC TOPICAL ×2 (06:16→19:41)
[2019-12-24] MEDS: Nystatin Powder 15gm Bottle 1 APPLIC TOPICAL ×2 (06:17→19:41)
[2019-12-24 06:21] LABS: International Normalized Ratio 2.5; Prothrombin Time (Protime)PT. 26.8 SECONDS (11.7-14.9)
[2019-12-24 06:30] LABS: Bedside Glucose 126 mg/dL (70-110)
[2019-12-24] MEDS: Insulin Lispro 100 UNIT/ML INSULN.PEN 8 UNIT SC ×2 (08:05→12:09)
[2019-12-24] MEDS: Magnesium Oxide 400 MG Tablet 1000 MG PO (08:06)
[2019-12-24] MEDS: Cyanocobalamin 500 MCG Tablet 1000 MCG PO (08:06)
[2019-12-24] MEDS: Multivitamins,Therapeutic Tablet 1 TABLET PO (08:06)
[2019-12-24] MEDS: Acetaminophen 500 MG Tablet 1000 MG PO (08:09)
[2019-12-24 11:01] LABS: Bedside Glucose 238 mg/dL (70-110)
--- NOTE | 2019-12-24 14:38 | NURSING ---
Harper catheter was leaking, urine noted on bed linen. Dr. Dugan updated and new order to change catheter monthly and PRN for leakage. Harper catheter removed d/t leakage, catheter was intact upon removal. New harper placed per sterile procedure, pt tolerated well.
[2019-12-24 16:16] VITALS: BP 124/62; PULSE 68; RESP 16; TEMP 36.8; O2SAT 92
[2019-12-24] MEDS: Jantoven 2 MG Tablet PO (17:06)
[2019-12-24 17:26] LABS: Bedside Glucose 97 mg/dL (70-110)
[2019-12-24 21:25] LABS: Bedside Glucose 161 mg/dL (70-110)
[2019-12-25] MEDS: Acetaminophen 500 MG Tablet 1000 MG PO ×2 (03:33→21:07)
[2019-12-25 06:13] VITALS: BP 116/44; PULSE 54; RESP 18; TEMP 37.1; O2SAT 95
[2019-12-25] MEDS: Nystatin Powder 15gm Bottle 1 APPLIC TOPICAL ×2 (06:16→21:09)
[2019-12-25] MEDS: Menthol/Lanolin/Calamine/Znox 113 GM Tube 1 APPLIC TOPICAL ×2 (06:16→21:08)
[2019-12-25 06:17] VITALS: PULSE 54
[2019-12-25] MEDS: FLUoxetine 20 MG Capsule PO (06:17)
[2019-12-25] MEDS: Metoprolol(XL)Succ 25 MG Tablet PO (06:17)
[2019-12-25] MEDS: Mesalamine 1.2 GM Tablet 2.4 GM PO (06:17)
[2019-12-25] MEDS: Losartan Potassium 25 MG Tablet PO (06:17)
[2019-12-25] MEDS: Loperamide 2 MG Capsule PO (06:17)
[2019-12-25 06:26] LABS: Bedside Glucose 132 mg/dL (70-110)
[2019-12-25 07:20] VITALS: O2SAT 95
[2019-12-25] MEDS: Multivitamins,Therapeutic Tablet 1 TABLET PO (08:15)
[2019-12-25] MEDS: Insulin Lispro 100 UNIT/ML INSULN.PEN 8 UNIT SC ×3 (08:16→17:24)
[2019-12-25] MEDS: Cyanocobalamin 500 MCG Tablet 1000 MCG PO (08:16)
[2019-12-25] MEDS: Magnesium Oxide 400 MG Tablet 1000 MG PO (08:16)
[2019-12-25 11:06] LABS: Bedside Glucose 169 mg/dL (70-110)
[2019-12-25 13:30] VITALS: BP 114/65; PULSE 56; RESP 14; TEMP 36.4; O2SAT 96
--- NOTE | 2019-12-25 13:39 | PCM.PROGNOTE ---
Patient Problems: Active and Suspected Problems Debility (Acute) Subjective: Patient was seen today for long, thickened, painful toenails which need to be reduced. She has hx of diabetes w/ neuropathy, has paresthesias. She has hx of PVD, gets edema, relates she normally wears compression stockings, is having foot/legs wrapped while in TCU. She has no other pedal complaints. - Physical Exam Vitals/I&O's: Vital Signs Temp Pulse Resp BP Pulse Ox 97.5 F L 56 L 14 114/65 96 12/25/19 13:30 12/25/19 13:30 12/25/19 13:30 12/25/19 13:30 12/25/19 13:30 Oxygen Flow Rate (L/min) 1.5 Oxygen Delivery Method Room Air Weight: 109.117 kg Body Mass Index (BMI) 42.0 Intake and Output for Last 24 Hours 12/23/19 12/24/19 12/25/19 23:59 23:59 23:59 Intake Total 600 / 600 860 / 860 720 / 720 Output Total 1850 / 1850 2350 / 2350 200 / 200 Balance -1250 / -1250 -1490 / -1490 520 / 520 General: Alert, Oriented x3, Cooperative, No apparent distress Extremities: Capillary Refill Less than 3 Seconds, No Calf Tenderness, Peripheral Pulses Normal, - - Toenails 1-5 bilateral are long, thick, dystrophic, yellow, crumbly, with subungual debris. There are no open lesions, no drainage, no ecchymosis to the foot or ankle bilateral. Sensation decreased bilateral foot c/w neuropathy. CFT < 2 seconds to all toes w/ normal temperature bilateral. Diffuse hyperpigmentation of skin c/w venous insufficiency - chronic, decreased hair bilateral foot. No m/s POP or pain on ROM to foot/ankle bilateral. Psych/Mental Status: Normal Affect, Alert and oriented to time, place, person, mood and affect Laboratory Results 12/24/19 17:22: POC Glucose 97 12/24/19 21:13: POC Glucose 161 H 12/25/19 06:16: POC Glucose 132 H 12/25/19 11:01: POC Glucose 169 H Current Medications Acetaminophen (Tylenol) 1,000 mg PO Q6H PRN PRN PRN Reason: Pain Score 1-10/10 Last Admin: 12/25/19 03:33 Dose: 1,000 mg Documented by: Calamine/Phenol (Calmoseptine Ointment) 1 applic TOPICAL 0600,2200 [facility]; Protocol Last Admin: 12/25/19 06:16 Dose: 1 applicatio Documented by: Cyanocobalamin (Vitamin B12) [facility] Last Admin: 12/25/19 08:16 Dose: 1,000 mcg Documented by: Dextrose (D50w Syringe) 0 gm IV X1 PRN; Protocol PRN Reason: Hypoglycemia Fluoxetine HCl (Prozac) 20 mg PO DAILY [facility] Last Admin: 12/25/19 06:17 Dose: 20 mg Documented by: Glucagon () 1 mg IM .X1 PRN PRN Reason: Hypoglycemia Insulin Human Lispro (Humalog Kwikpen (Bkc)) 8 unit SC TIDAC [facility] Last Admin: 12/25/19 11:50 Dose: 8 units Documented by: Loperamide HCl (Imodium) 2 mg PO DAILY [facility] Last Admin: 12/25/19 06:17 Dose: 2 mg Documented by: Losartan Potassium (Cozaar) 25 mg PO DAILY [facility] Last Admin: 12/25/19 06:17 Dose: 25 mg Documented by: Magnesium Oxide (Mag-Ox 400) [facility] Last Admin: 12/25/19 08:16 Dose: 1,000 mg Documented by: Menthol (Bengay Vanishing Scent) 1 applic TOPICAL TID PRN PRN PRN Reason: neck pain Last Admin: 11/16/19 05:43 Dose: 1 applic Documented by: Mesalamine (Lialda) 2.4 gm PO DAILY [facility] Last Admin: 12/25/19 06:17 Dose: 2.4 gm Documented by: Metoprolol Succinate (Toprol Xl (Beta Mile)) 25 mg PO DAILY [facility] Last Admin: 12/25/19 06:17 Dose: 25 mg Documented by: Multivitamins (Multivitamin) [facility] Last Admin: 12/25/19 08:15 Dose: 1 tablet Documented by: Nystatin (Mycostatin Powder) 1 applic TOPICAL 0600,2200 [facility]; Protocol Last Admin: 12/25/19 06:16 Dose: 1 applicatio Documented by: Polyethylene Glycol (Miralax) 17 gm PO DAILY PRN PRN Reason: Constipation Last Admin: 11/23/19 05:21 Dose: 17 gm Documented by: Sodium Chloride () 10 - 40 ml IV UD PRN PRN Reason: SALINE FLUSH Last Admin: 11/24/19 17:34 Dose: 10 ml Documented by: Sodium Chloride () 10 - 40 ml IV UD PRN PRN Reason: SALINE FLUSH Sodium Chloride () 10 - 40 ml IV UD PRN PRN Reason: SALINE FLUSH Warfarin Sodium (Jantoven) 2 mg PO DAILY@1700 [facility] Last Admin: 12/24/19 17:06 Dose: 2 mg Documented by: Medical Necessity - Tobacco Use Smoking Status: Former smoker Tobacco Use: Cigarettes Assessment/Plan All Active Problems Failure to thrive in adult (Acute) UTI (urinary tract infection) (Acute) Debility (Acute) Cellulitis of left lower extremity (Acute) Non-pressure chronic ulcer of left calf with fat layer exposed (Resolved) Generalized weakness (Acute) Bilateral lower leg cellulitis (Acute) Onychomycosis 1-5 toenails bilateral Diabetes w/ neuropathy PVD bilateral Exam performed. Reduced toenails 1-5 bilateral using a nail nipper, this was done w/out incident. This is indicated due to neuropathy and PVD w/ class findings. Patient to continue with her diabetic shoes and inserts. Follow up in our office in 2-3 months for foot care, sooner if needed.
[2019-12-25 16:56] LABS: Bedside Glucose 131 mg/dL (70-110)
[2019-12-25] MEDS: Jantoven 2 MG Tablet PO (17:24)
[2019-12-25 21:20] LABS: Bedside Glucose 214 mg/dL (70-110)
[2019-12-26 06:25] LABS: Bedside Glucose 152 mg/dL (70-110)
[2019-12-26] MEDS: Menthol/Lanolin/Calamine/Znox 113 GM Tube 1 APPLIC TOPICAL ×2 (06:37→20:51)
[2019-12-26] MEDS: Nystatin Powder 15gm Bottle 1 APPLIC TOPICAL ×2 (06:37→20:51)
[2019-12-26] MEDS: Losartan Potassium 25 MG Tablet PO (06:38)
[2019-12-26] MEDS: Mesalamine 1.2 GM Tablet 2.4 GM PO (06:38)
[2019-12-26] MEDS: Loperamide 2 MG Capsule PO (06:38)
[2019-12-26] MEDS: FLUoxetine 20 MG Capsule PO (06:38)
[2019-12-26 06:39] VITALS: BP 124/71; PULSE 70
[2019-12-26] MEDS: Metoprolol(XL)Succ 25 MG Tablet PO (06:39)
[2019-12-26 06:54] VITALS: BP 124/71; PULSE 70; RESP 18; TEMP 36.8; O2SAT 93
[2019-12-26 07:08] VITALS: O2SAT 96
[2019-12-26] MEDS: Insulin Lispro 100 UNIT/ML INSULN.PEN 8 UNIT SC ×3 (08:09→18:11)
[2019-12-26] MEDS: Multivitamins,Therapeutic Tablet 1 TABLET PO (08:10)
[2019-12-26] MEDS: Cyanocobalamin 500 MCG Tablet 1000 MCG PO (08:11)
[2019-12-26] MEDS: Magnesium Oxide 400 MG Tablet 1000 MG PO (08:11)
[2019-12-26 11:05] LABS: Bedside Glucose 233 mg/dL (70-110)
[2019-12-26 13:57] VITALS: BP 116/76; PULSE 57; RESP 18; TEMP 36.2; O2SAT 100
[2019-12-26 16:26] LABS: Bedside Glucose 127 mg/dL (70-110)
[2019-12-26] MEDS: Jantoven 2 MG Tablet PO (18:12)
[2019-12-26 20:55] LABS: Bedside Glucose 211 mg/dL (70-110)
[2019-12-27 05:38] VITALS: BP 135/56; PULSE 68; RESP 18; TEMP 36.3; O2SAT 91
[2019-12-27] MEDS: Menthol/Lanolin/Calamine/Znox 113 GM Tube 1 APPLIC TOPICAL ×2 (05:45→20:11)
[2019-12-27] MEDS: Nystatin Powder 15gm Bottle 1 APPLIC TOPICAL ×2 (05:45→20:11)
[2019-12-27 05:46] VITALS: BP 135/56; PULSE 68
[2019-12-27] MEDS: Losartan Potassium 25 MG Tablet PO (05:46)
[2019-12-27] MEDS: Mesalamine 1.2 GM Tablet 2.4 GM PO (05:46)
[2019-12-27] MEDS: FLUoxetine 20 MG Capsule PO (05:46)
[2019-12-27] MEDS: Metoprolol(XL)Succ 25 MG Tablet PO (05:46)
[2019-12-27] MEDS: Loperamide 2 MG Capsule PO (05:47)
[2019-12-27 06:26] LABS: Bedside Glucose 146 mg/dL (70-110)
[2019-12-27 07:12] VITALS: O2SAT 95
[2019-12-27] MEDS: Cyanocobalamin 500 MCG Tablet 1000 MCG PO (07:55)
[2019-12-27] MEDS: Multivitamins,Therapeutic Tablet 1 TABLET PO (07:56)
[2019-12-27] MEDS: Magnesium Oxide 400 MG Tablet 1000 MG PO (07:56)
[2019-12-27] MEDS: Insulin Lispro 100 UNIT/ML INSULN.PEN 8 UNIT SC ×3 (07:57→17:32)
[2019-12-27 11:10] LABS: Bedside Glucose 146 mg/dL (70-110)
[2019-12-27 13:37] VITALS: BP 135/42; PULSE 60; RESP 15; TEMP 36.6; O2SAT 93
[2019-12-27 16:26] LABS: Bedside Glucose 124 mg/dL (70-110)
[2019-12-27] MEDS: Jantoven 2 MG Tablet PO (17:31)
[2019-12-27 21:16] LABS: Bedside Glucose 248 mg/dL (70-110)
[2019-12-28 05:38] LABS: International Normalized Ratio 2.8; Prothrombin Time (Protime)PT. 29.3 SECONDS (11.7-14.9)
[2019-12-28 06:02] VITALS: BP 122/61; PULSE 64; RESP 18; TEMP 36.8; O2SAT 92
[2019-12-28] MEDS: Menthol/Lanolin/Calamine/Znox 113 GM Tube 1 APPLIC TOPICAL ×2 (06:04→19:55)
[2019-12-28] MEDS: Nystatin Powder 15gm Bottle 1 APPLIC TOPICAL ×2 (06:04→19:54)
[2019-12-28 06:05] VITALS: BP 122/61; PULSE 64
[2019-12-28] MEDS: Losartan Potassium 25 MG Tablet PO (06:05)
[2019-12-28] MEDS: FLUoxetine 20 MG Capsule PO (06:05)
[2019-12-28] MEDS: Metoprolol(XL)Succ 25 MG Tablet PO (06:05)
[2019-12-28] MEDS: Loperamide 2 MG Capsule PO (06:05)
[2019-12-28] MEDS: Mesalamine 1.2 GM Tablet 2.4 GM PO (06:05)
[2019-12-28 06:26] LABS: Bedside Glucose 129 mg/dL (70-110)
[2019-12-28 06:56] VITALS: O2SAT 92
[2019-12-28] MEDS: Insulin Lispro 100 UNIT/ML INSULN.PEN 8 UNIT SC ×3 (08:04→17:52)
[2019-12-28] MEDS: Magnesium Oxide 400 MG Tablet 1000 MG PO (08:05)
[2019-12-28] MEDS: Multivitamins,Therapeutic Tablet 1 TABLET PO (08:05)
[2019-12-28] MEDS: Cyanocobalamin 500 MCG Tablet 1000 MCG PO (08:05)
[2019-12-28] MEDS: Acetaminophen 500 MG Tablet 1000 MG PO (08:08)
[2019-12-28 11:21] LABS: Bedside Glucose 194 mg/dL (70-110)
[2019-12-28 14:19] VITALS: BP 111/63; PULSE 54; RESP 16; TEMP 36.1; O2SAT 95
[2019-12-28 16:35] LABS: Bedside Glucose 120 mg/dL (70-110)
[2019-12-28] MEDS: Jantoven 2 MG Tablet PO (17:52)
[2019-12-28 21:46] LABS: Bedside Glucose 204 mg/dL (70-110)
[2019-12-29 06:08] VITALS: BP 143/64; PULSE 69
[2019-12-29] MEDS: Loperamide 2 MG Capsule PO (06:08)
[2019-12-29] MEDS: Mesalamine 1.2 GM Tablet 2.4 GM PO (06:08)
[2019-12-29] MEDS: FLUoxetine 20 MG Capsule PO (06:08)
[2019-12-29] MEDS: Losartan Potassium 25 MG Tablet PO (06:08)
[2019-12-29] MEDS: Metoprolol(XL)Succ 25 MG Tablet PO (06:08)
[2019-12-29 06:09] VITALS: RESP 18; TEMP 36.3; O2SAT 91
[2019-12-29] MEDS: Menthol/Lanolin/Calamine/Znox 113 GM Tube 1 APPLIC TOPICAL (06:09)
[2019-12-29] MEDS: Nystatin Powder 15gm Bottle 1 APPLIC TOPICAL (06:09)
[2019-12-29] MEDS: Acetaminophen 500 MG Tablet 1000 MG PO (06:15)
[2019-12-29 06:26] LABS: Bedside Glucose 143 mg/dL (70-110)
[2019-12-29 06:35] VITALS: O2SAT 91
--- NOTE | 2019-12-29 06:52 | NURSING ---
Last HS pt told this nurse she did not need to wear O2 at HS anymore.This nurse checked SpO2 numerous times throughout the night while pt was sleeping. Pt would be snoring softly and SpO2 would be between 80-84%. This nurse would wake pt and she would return to 94-95% on RA. Pt stating she use to wear a BIPAP machine over 20 years ago but no longer does. States she does have an O2 concentrator at home that she uses sometimes if she gets SOB. Says she use to have a medical cost consultant but does not anymore. Educated on importance of wearing O2 when sleeping. Pt in agreement.
[2019-12-29] MEDS: Cyanocobalamin 500 MCG Tablet 1000 MCG PO (07:41)
[2019-12-29] MEDS: Insulin Lispro 100 UNIT/ML INSULN.PEN 8 UNIT SC (07:41)
[2019-12-29] MEDS: Multivitamins,Therapeutic Tablet 1 TABLET PO (07:41)
[2019-12-29] MEDS: Magnesium Oxide 400 MG Tablet 1000 MG PO (07:41)
[2019-12-29 09:07] VITALS: PULSE 64; RESP 16; O2SAT 97
[2019-12-29 10:10] VITALS: BP 143/64; PULSE 64; RESP 16; TEMP 36.3; O2SAT 97
== END 2019-12-29 10:12 | disposition home health service (06) | DRG 689 ==
PROVIDERS: Admitting Provider Family Medicine Geriatric Medicine; PCP Internal Medicine; Visit Provider Family Medicine Geriatric Medicine
DX: N39.0 Urinary tract infection, site not specified (principal); I26.99 Other pulmonary embolism without acute cor pulmonale; K51.90 Ulcerative colitis, unspecified, without complications; L03.115 Cellulitis of right lower limb; L03.116 Cellulitis of left lower limb; Z68.41 Body mass index [BMI] 40.0-44.9, adult; J96.10 Chronic respiratory failure, unspecified whether with hypoxia or hypercapnia; Z23 Encounter for immunization; I10 Essential (primary) hypertension; F41.9 Anxiety disorder, unspecified; B35.4 Tinea corporis; G47.30 Sleep apnea, unspecified; R32 Unspecified urinary incontinence; I89.0 Lymphedema, not elsewhere classified; E78.5 Hyperlipidemia, unspecified; J44.9 Chronic obstructive pulmonary disease, unspecified; E66.01 Morbid (severe) obesity due to excess calories; E11.51 Type 2 diabetes mellitus with diabetic peripheral angiopathy without gangrene; Z87.891 Personal history of nicotine dependence; L89.321 Pressure ulcer of left buttock, stage 1; L89.311 Pressure ulcer of right buttock, stage 1; L97.522 Non-pressure chronic ulcer of other part of left foot with fat layer exposed; L97.512 Non-pressure chronic ulcer of other part of right foot with fat layer exposed; H10.9 Unspecified conjunctivitis; E11.40 Type 2 diabetes mellitus with diabetic neuropathy, unspecified; B35.1 Tinea unguium
CPT/HCPCS: 36415; 72040; 74018; 80048; 81001; 82962; 85025; 85610; 87086; 87088; 97110; 97116; 97162; 97166; 97530; 97535; 97542; 97802; G0009; J7030; 90670; A4216; J7799

== ENCOUNTER → 2020-02-03 15:40 | Outpatient (CLI) | payer MEDICARE, OTHER, SELFPAY ==
[2019-11-03 16:31] VITALS: BMI 42.0
== END ==
PROVIDERS: PCP Internal Medicine; Referring Provider Internal Medicine Gastroenterology; Visit Provider Internal Medicine Gastroenterology
DX: K50.90 Crohn's disease, unspecified, without complications (principal)
CPT/HCPCS: 36415

== ENCOUNTER → 2020-10-19 09:52 | Outpatient (CLI) | payer MEDICARE, OTHER, SELFPAY ==
[2019-11-03 16:31] VITALS: BMI 42.0
--- NOTE | 2020-10-19 13:58 | NEURO ---
NCS and/or EMG Patient Report Ordering Doctor: Angelo Eldridge DATE OF SERVICE: 10/19/20 Bee Ortiz presents for electrodiagnostic testing of the upper limbs. She reports numbness and weakness in both hands. Electrodiagnostic Findings: Prolonged median motor and sensory latencies bilaterally. Prolonged median palmar latency bilaterally. Absent right ulnar sensory response. Reduced median motor conduction velocity bilaterally. Prolonged median and ulnar F-waves. Needle EMG testing shows no evidence of denervation with normal motor unit action potentials. Electrodiagnostic Assessment: This is an abnormal study. 1) Findings suggestive of bilateral median mononeuropathy consistent with a moderate left carpal tunnel syndrome and a moderate to advanced right carpal tunnel syndrome. 2) Would consider clinical correlation with lower limb EMG to evaluate for peripheral polyneuropathy
== END ==
PROVIDERS: PCP Internal Medicine; Referring Provider Internal Medicine; Visit Provider Internal Medicine
DX: G62.9 Polyneuropathy, unspecified (principal); R20.0 Anesthesia of skin
CPT/HCPCS: 95886; 95913

== ENCOUNTER → 2020-12-15 16:23 | Outpatient (CLI) | payer MEDICARE, OTHER, SELFPAY ==
[2019-11-03 16:31] VITALS: BMI 42.0
[2020-12-15 17:42] LABS: Absolute Lymphocyte Count 1.64 X10^3/uL (0.83-4.51); Absolute Neutrophil Count 6.6 X10^3/uL (2.0-7.7); Basophil# 0.03 X10^3/uL; Basophil% 0.3 % (0-1); Eosinophil# 0.37 X10^3/uL; Eosinophils% 3.9 % (0-5); Hematocrit 43.8 % (37-47); Hemoglobin 12.8 g/dL (12.0-15.0); Lymphocyte # 1.64 X10^3/ul (0.83-4.51); Lymphocyte % 17.4 % (19-41); Mean Corp Hgb Conc 29.2 g/dL (32-36); Mean Corpuscular Hgb 26.9 pg (27.0-32.0); Mean Corpuscular Volume 92.2 fL (81-99); Mean Platelet Vol. 11.5 fl (6.2-12.0); Monocyte% 7.4 % (0-10); NRBC Flagged by Analyzer 0 % (0-5); Neutrophil # 6.61 X10^3/uL (2.7-7.7); Neutrophil % 70.4 % (47-70); Platelet Count 242 K/mm3 (150-450); RBC Distribution Width CV 14.6 % (11.6-14.6); RBC Distribution Width SD 49.7 fl (35.1-43.9); Red Blood Count 4.75 M/mm3 (4.2-5.4); White Blood Count 9.4 K/mm3 (4.4-11.0)
[2020-12-15 18:12] LABS: ALB/GLOB Ratio 0.7 RATIO (0.9-2.4); AST(SGOT) 15 U/L (15-37); Alanine Aminotransfer ALT/SGPT 19 U/L (13-56); Albumin, Serum 3.1 g/dL (3.2-5.0); Alkaline Phosphatase 71 U/L (45-117); Anion Gap 8 (5-15); BUN 18 mg/dL (7-18); Calcium,Total 9.1 mg/dL (8.5-10.1); Chloride 107 mmol/L (98-107); Creatinine, Serum 0.82 mg/dL (0.55-1.02); EST Glomerular Filtration Rate 72 mL/min (>60); Est Glom Filt Rate - Afr Amer 88 mL/min (>60); Globulin 4.7 g/dL (2.2-4.2); Glucose 145 mg/dL (74-106); Protein, Total 7.8 g/dL (6.4-8.2); Sodium Level 140 mmol/L (136-145); Thyroid Stim Hormone (TSH) 1.38 uIU/mL (0.358-3.74)
[2020-12-16 09:12] LABS: Hepatitis C Antibody Non-Reactive (Nonreactive); Vitamin D,25 Hydroxy 39.2 ng/mL
== END ==
PROVIDERS: PCP Internal Medicine; Visit Provider Family Medicine Geriatric Medicine
DX: I10 Essential (primary) hypertension (principal); E55.9 Vitamin D deficiency, unspecified; Z13.89 Encounter for screening for other disorder
CPT/HCPCS: 36415; 80053; 82306; 84443; 85025; 86803